=== PATIENT | female | born 1985 | race Caucasian/White ===

== ENCOUNTER → 2021-08-18 11:24 | Outpatient (CLI) | payer OTHER, SELFPAY ==
--- NOTE | 2021-08-18 11:27 | RAD_ITS ---
STUDY: X-RAY - LEFT WRIST REASON FOR EXAM: Female, 35 years old. Ganglion cyst volar aspect of distal radius. TECHNIQUE: 3 view(s) of the wrist were obtained. After identifying is the area of clinical concern near the radial styloid. COMPARISON: None. FINDINGS: Normal visualized distal radius and ulna. Normal radiocarpal articulation. Normal distal radioulnar articulation. Normal carpal bones. Normal carpal articulations. Normal carpometacarpal articulation of the thumb. Normal second through fifth carpometacarpal articulations. Normal visualized metacarpal bones. The soft tissue structures are unremarkable. RAD/Wrist min 3 Views IMPRESSION: No abnormality of the left wrist. Electronically Signed: Taye Thomas MD at 12:34 EDT , Service support ,
== END ==
PROVIDERS: PCP Internal Medicine; Referring Provider Surgery; Visit Provider Surgery
DX: M67.432 Ganglion, left wrist (principal)
CPT/HCPCS: 73110

== ENCOUNTER 2021-10-30 08:14 | Day surgery (SDC) | payer OTHER, SELFPAY ==
--- NOTE | 2021-10-30 02:33 | HP.PCM_ITS ---
History and Physical Date of Admission: 10/30/21 HISTORY OF PRESENT ILLNESS 35 year old woman presents with a ganglion cyst volar radial aspect left wrist that has increased in size over the last several months. She is right hand dominant. She denies fever. She denies recent infection. She denies trauma. She states her PCP tried to drain it with a needle without success. She also states a small incision was made in the office in order to get better visualization for removal of this cyst. At the present time, the soft tissue mass is still present. X-ray left wrist was done on 08/18/21. It showed no bony abnormalities. She presents today for further evaluation and treatment. PAST MEDICAL HISTORY Back problem Ganglion cyst of volar aspect of left wrist Smoker PAST SURGICAL HISTORY Encounter for Essure implantation ALLERGIES No Known Allergies MEDICATIONS No Known/Unobtainable [No Known Home Medications] FAMILY HISTORY Father - Hypertension, High cholesterol Mother - Breast cancer, Diabetes, Hypertension, High cholesterol SOCIAL HISTORY Smoking Status: Current some day smoker alcohol intake: never substance use type: does not use REVIEW OF SYSTEMS General - Denies fever and weight loss. Has fatigue. Eyes - Denies cataracts and glaucoma. ENT - Denies nasal congestion and sore throat. Endocrine - Denies excessive thirst and urination. Skin - Denies suspicious lesions and skin cancer. Has ganglion cyst volar radial aspect left wrist. Musculoskeletal - Denies joint pain, joint stiffness, weakness of muscles and joints, back pain, and arthritis. Neuro - Denies headaches. Cardiovascular - Denies chest pain, shortness of breath with exertion. Has fatigue. Psych - Denies anxiety and depression. Respiratory - Denies chronic cough and shortness of breath. Gastrointestinal - Denies nausea, vomiting, diarrhea, and constipation. Hematologic - Denies abnormal bruising and bleeding. Genitourinary - Denies hematuria and urinary frequency. PHYSICAL EXAMINATION General - Alert and Oriented. HEENT - PERRL. EOMI. Throat is clear. Neck - Supple and nontender. No cervical adenopathy. Lungs - Clear to auscultation. Heart - Regular rate and rhythm. Abdomen - Soft and nondistended. Extremities - FROM. No axillary adenopathy. Radial pulses are palpable. On the left upper extremity involving the volar radial wrist is a soft tissue mass that is clinically consistent with a ganglion cyst. No evidence of infection. Mild swelling present. Neuro - CN II-XII grossly intact. Psych - Normal mood and affect. ASSESSMENT 1. 7 mm ganglion cyst volar radial aspect left wrist. 2. Smoker. PLAN Patient has a soft tissue mass volar radial aspect left wrist that has increased in size over last several months. If it is left alone, it will continue to grow with the possibility of a portion of the ganglion cyst enveloping other s tructures such as the radial artery. Patient states her PCP tried to remove this mass in the office and was unsuccessful. Removing this soft tissue mass requires a trip to the operating room under tourniquet control. It will be under general anesthesia on an outpatient basis. Postoperatively she will wear a plaster wrist splint for 2 weeks. The sutures will be removed in 2 weeks. Tissue that is removed at surgery will be sent to Pathology for analysis to rule out carcinoma. Preoperatively the patient had an x-ray left wrist on 08/18/21. It showed no bony abnormalities. If she develops some stiffness in her fingers, will set her up with OT for range of motion exercises, strengthening, and edema management. She will be encouraged to move her fingers right after surgery to minimize the need to go to OT. Patient was informed of the risks and complications of the procedure including alternatives to surgery. These were discussed with the patient personally. Patient voices understanding and wishes to proceed. Some of the risks and complications were included in a form from the [place]. Encouraged patient to stop smoking as it may have deleterious effects on wound healing. We discussed the current risks associated with COVID-19. While it is understood that there is a community spread of COVID-19, the risk of jp COVID-19 while at [facility] [place] ([facility]) is very low; however, the risk cannot be completely mitigated because of the community spread of the disease. We discussed in detail the risk of exposure to and/or potential harm posed by the COVID-19 virus with having a surgery/procedure at this time versus the risk of delaying the surgery/procedure. It is not possible to know either the risk of delaying the surgery or procedure or chance of getting an infection with perfect accuracy, but a joint decision was made to proceed at this time with the scheduled surgery/procedure as indicated on the consent form. Patient was notified that we will need to comply with any screening or testing [facility] wishes to perform or that surgery may be delayed for any positive results. Procedure Criteria Procedure Type: Elective COVID Risk Discussion: The surgeon/proceduralist and patient have discussed in detail the risk of exposure to and/or potential harm posed by the COVID-19 virus with having a surgery/procedure at this time versus the risk of delaying the surgery/procedure. It is not possible to know either the risk of delaying the surgery or procedure or chance of getting an infection with perfect accuracy, but a joint decision was made between the patient and the surgeon/proceduralist to proceed at this time with the scheduled surgery/procedure as indicated on the consent form.
[2021-10-30] MEDS: Lactated Ringers 1,000 ML 15 ML IV (09:05)
[2021-10-30 09:18] LABS: Internal QC Validated? YES +Cl - CLEAR BKGD; Pregnancy, Urine Negative Negative
[2021-10-30 09:22] VITALS: BP 131/80; PULSE 73; RESP 16; TEMP 36.6; O2SAT 98; BMI 45.9
--- NOTE | 2021-10-30 09:55 | GANG_PTH ---
PATIENT: MARIIA COUGHLIN LOC: [facility] [place] U#:[id number] AGE/SX: 35/F ROOM: RE10/30/[address]: Dr. Les Hopper MD : 1985 BED: DIS: 10/30/2021 SPEC #: [id number] RECD: 10/30/21 14:21 STATUS: JAGUAR JUDY #: [id number] FRANCY: 10/30/21 09:[address]: Les Hopper DEPT: SURGICAL PATHOLOGY RECD BY: Nina Meyers ENTERED: 10/30/21 14:32 SP TYPE: GANGLION OTHR DR: Dr. Rosamaria Estrada DO Tissues: GANGLION CYST Procedures: Surgery Specimen Level III HEADER OPERATION: Excision ganglion cyst volar wrist PRE-OP DIAGNOSIS: 7 mm ganglion cyst volar radial aspect left wrist TISSUE SUBMITTED: 7 mm ganglion cyst volar radial aspect left wrist MICROSCOPIC DIAGNOSIS Soft tissue, volar radial aspect, left wrist, biopsy: Consistent with ganglion cyst. AM:steffany 11/02/2021 MICROSCOPIC DESCRIPTION Slides are reviewed. GROSS DESCRIPTION Received in fixative is one container labeled with the patient's name and designated ganglion cyst volar radial aspect. The specimen consists of multiple irregular fragments of pink-sanchez soft tissue that in aggregate measure 3 x 2.5 x 0.2 cm. The specimen is totally submitted in one cassette. / AM:steffany 10/30/21 TC:1 CPT: 03736
[2021-10-30] MEDS: Lidocaine 1% /Epi 1:100 (20ml) 20 ML Vial (11:56)
--- NOTE | 2021-10-30 13:35 | OP.PCM_ITS ---
Problems Associated Problem List Diagnoses (1) Ganglion cyst of volar aspect of left wrist: (2) Smoker: Report of Operation Date of Procedure: 10/30/21 Pre-Operative Diagnosis: 1. 7 mm ganglion cyst volar radial aspect left wrist. 2. Smoker. Post-Operative Diagnosis: Same. Surgery/Procedure Performed:: Excision 7 mm ganglion cyst volar radial aspect left wrist. Description of Surgical Findings:: 35 year old woman presents with a ganglion cyst volar radial aspect left wrist that has increased in size over the last several months. She is right hand dominant. She denies fever. She denies recent infection. She denies trauma. She states her PCP tried to drain it with a needle without success. She also states a small incision was made in the office in order to get better visualization for removal of this cyst. At the present time, the soft tissue mass is still present. Patient was informed of the risks and complications of the procedure including alternatives to surgery. These were discussed with the patient personally. Patient voices understanding and wishes to proceed. Some of the risks and complications were included in a form from the [place] [employer]. Some of the risks and complications that were discussed included but were not inclusive of failure to diagnose including symptom relief, pain, infection, numbness, stiffness, loss of digit, RSD (CRPS), need for further surgery, contracture, and wound healing problems. Encouraged patient to stop smoking as it may have deleterious effects on wound healing. Total tourniquet time - 57 minutes. Surgeon: Les Hopper server software engineer: None Type of Anesthesia: General Specimen's removed: Ganglion cyst volar radial aspect left wrist to Pathology. Drains: None. Estimated Blood Loss (mL): 10. Description of Procedure: The patient was taken to the operating room. In the supine position, she was placed under general anesthesia and her left upper extremity was prepped and draped in the usual fashion. SCDs were placed for DVT prophylaxis. Perioperative antibiotics were given intravenously. Under loupe magnification, the left upper extremity was elevated. Esmarch bandage was wrapped around the left upper extremity and the tourniquet was elevated to 250 mmHg. I made a longitudinal incision proximal to the ganglion and then proceeded with a curvilinear incision around the ganglion on the radial aspect and zigzag incision into the wrist crease. This was done to provide me with exposure in case I had to extend the incision either proximally, distally or radially. The incision was then infiltrated with Xylocaine with Epinephrine for postoperative pain relief. Once the incisions were made down into the subcutaneous tissue, the ganglion cyst was seen. Some scar tissue seen from previous attempts to remove it in the office along with an attempt at injecting steroids. The palmar cutaneous branch of the median nerve was adjacent to the ganglion cyst on the ulnar aspect that was dissected free. The radial artery was also dissected and preserved and was located on the radial aspect of the ganglion cyst. The artery was not adherent to the ganglion cyst. Dissected the ganglion cyst from its stalk distally down to scaphotrapezial joint. A small cuff of volar capsule was removed. This was done to minimize recurrence. After the ganglion cyst was removed, I pressed on the surrounding tissue to see if there is any other extension to the ganglion cyst and none was seen. When I excised the ganglion cyst, there was some mild inflammation of the flexor carpi radialis tendon which was debrided. After the ganglion cyst was removed, I let the tourniquet down after 57 minutes to make sure there was no arterial bleeders in the area of the radial artery and/or its branches. Mild bleeding was noted, mostly venous, easily controlled with compression gauze. Hemostasis was obtained using electrocautery away from the artery. A small branch coming from the radial artery was controlled with a small surgical clip. I then irrigated the wound with saline. I then was able to close the wound in multiple layers using 4-0 Vicryl interrupted sutures for deep dermis and subcutaneous tissue. The skin was approximated using 5-0 Prolene simple interrupted sutures. Bactroban ointment was applied to the incision followed by Xeroform gauze, 2 x 2 gauze, Kerlix gauze and a volar plaster splint with the wrist in slight extension for postoperative pain relief. Her fingers are free so she can proceed with range of motion exercises of her fingers postoperatively. This was then covered with an Michael wrap. The patient tolerated the procedure well and will be sent to the recovery room in satisfactory condition. She will be sent home on antibiotics and pain medicine. She will follow up in the office in a week for a wound check as well as for discussion of the pathology report. She will have the sutures removed in a couple of weeks. She will keep her right hand elevated during the initial postoperative period. She will be encouraged to proceed with range of motion exercises to minimize stiffness. If she has trouble, then will send her to OT for range of motion exercises, strengthening, and edema management. Grafts/Implants Used: None. Complications None. Admit VTE Documentation VTE Present on Admission: No VTE Mechan Device Prophylaxis: SCD's VTE Pharm Prophylaxis ordered?: No Addendum Addendum: Surgery Charges CPT - 47267 ICD-10 - M67.432, F17.200
--- NOTE | 2021-10-30 13:38 | PCM.DC ---
Discharge Instructions Diet Discharge Diet: No restrictions Activity Discharge Activity: May Not Drive, May Shower (wear plastid bag over right hand when showering.) and - (elevate right hand. no heavy lifting right hand.) May shower in (days): 1 (wear plastic bag over right hand when showering.) May resume sexual activity in: No Restrictions Weight Bearing Status: Weight bearing as tolerated Lifting Restrictions: 20 lbs. Keep extremity elevated above heart level: Right Arm Dressing / Incision Call your doctor if your incision/area has: Continuous Slow Oozing, Sudden Increased Bleeding, Increased Pain/ Swelling, Increased Redness, Foul Smelling Discharge and Swelling at the incision site Call your doctor if you observe: Fever of 101 or Higher, Coldness, Increased Pain, Shortness of breath, Chest pain, Calf discomfort and Uncontrolled pain Suture Line Care: - (after operative dressing removed in the office, apply antibiotic ointment to suture line daily followed by splint and mei wrap.) Remove Dressing in: do not remove dressing (will change operative dressing in the office.) Cleanse incision/area with: - (wear plastic bag over right hand when showering.) Additional Dressing/Incision Instructions:: splint to be worn for 2 weeks. encourage range of motion exercises to minimize stiffness. Follow Up Care Please Follow Up With: Les Hopper MD When: one week. call [phone] for appt. Test Results: Test results from this visit will be discussed in further detail at your follow-up appointment, if applicable. Discharge Plan Admission Primary Reason for Your Visit: ganglion cyst volar radial right wrist Attending Provider: Les Hopper Primary Care Provider: Rosamaria Estrada Discharge Orders/Prescriptions Prescriptions: New cefadroxil 500 mg capsule 500 mg PO BID Qty: 10 RF: 0 oxycodone-acetaminophen [Percocet] 5-325 mg tablet 1 tab PO Q4H PRN (Reason: pain (scale score 7-10)) 7 Days Qty: 40 RF: 0 Continued multivitamin Tablet 1 tab PO DAILY RF: 0 Referrals / Follow Up: Rosamaria Estrada DO [Primary Care Provider] - Disposition Disposition (needs filled in before D/C Order can be placed): Home, Self Care
[2021-10-30 13:39] VITALS: BP 131/80; PULSE 92; RESP 16; TEMP 36.3; O2SAT 98
[2021-10-30 13:45] VITALS: BP 126/73; BP 131/80; PULSE 91; RESP 16; O2SAT 97
[2021-10-30 14:00] VITALS: BP 130/82; BP 131/80; PULSE 94; RESP 16; O2SAT 99
[2021-10-30 14:01] VITALS: BP 126/72; BP 131/80; PULSE 89; RESP 16; TEMP 36.2
[2021-10-30 14:15] VITALS: BP 124/80; BP 131/80; PULSE 72; RESP 14; TEMP 36.6; O2SAT 98
== END 2021-10-30 14:57 | disposition home or self-care (01) ==
LOC: SDC 08:15 → AC 08:41
PROVIDERS: Anesthesiology; PCP Internal Medicine; Referring Provider Surgery; Visit Provider Surgery
PROC: (CPT 25111; principal; 2021-10-30 09:40)
DX: M67.432 Ganglion, left wrist (principal); F17.200 Nicotine dependence, unspecified, uncomplicated; E78.00 Pure hypercholesterolemia, unspecified
CPT/HCPCS: 25111; 81025; 87426; 88304; C9803; J7120; J2405

== ENCOUNTER → 2023-11-28 | Outpatient (CLI) | payer OTHER, SELFPAY ==
--- NOTE | 2023-11-28 07:58 | BI_ITS ---
MAMMOGRAPHY - BILATERAL SCREENING REASON FOR EXAM: Female, 38 years old. Routine annual screening examination. PERTINENT HISTORY: Non-contributory. TECHNIQUE: Digital bilateral breast vik (3D mammographic acquisition) in the CC and MLO projections. 2-D mediolateral oblique (MLO) and craniocaudad (CC) views of both breasts were obtained. CAD: Full Field Digital Mammography with Computer Added Detection was performed. COMPARISON: None. Baseline examination. FINDINGS: Breast Composition: The breasts are heterogeneously dense, which may obscure small masses. There are no dominant masses or suspicious calcifications. There is a 7.8 mm x 8.5 mm nodular density in the axillary region of the left breast. Correlation with ultrasound is recommended for further evaluation. No other significant abnormalities are identified. BI/SCRN MAMM (CAD)W/VIK BILAT IMPRESSION: 7.8 mm x 8.5 mm nodular density in the axillary region of the left breast. Correlation with ultrasound is recommended. ASSESSMENT CATEGORY: BIRADS Category 0: Incomplete. Need additional imaging evaluation. A letter regarding these results will be sent to the patient by the facility within 30 days. Approximately 10% of breast cancers are not detected by mammography. A normal mammogram should not delay biopsy of a clinically suspicious abnormality. [id number] Electronically Signed: Rudi Varghese MD at 9:02 EST ,
--- OUTSIDE RECORDS SUMMARY | 2023-11-28 08:11 | XMS RPT_ITS | CCD ---
Author Name Unknown Address [id number] [place] [address] Organization [facility] Care Team Providers Care Swimming Professor Name Role Phone Marli Platt E Unavailable Rachel Cedeño Unavailable Unavailable Vessel Captain, System Unavailable Unavailable Lacy Hatch Unavailable Unavailable Unavailable Unavailable Angel Bettencourt Unavailable Unavailable Katelin Jain Unavailable Unavailable Angel Costello Unavailable Unavailable Marli Platt CNP Unavailable Angel Costello LPN Unavailable Unavailable Jennifer Funk LPN Unavailable Unavailable Katelin Jain Unavailable Unavailable Unavailable Unavailable Sean DORosamaria Unavailable Nini Kulkarni CMA Unavailable Unavailable Les Hopper Unavailable Giulia Marli Unavailable Unavailable Giulia Marli Unavailable Serenity Skinner LPN Unavailable Unavailable Jesus Valera CNP Unavailable Maxwell Salomon Unavailable Unavailable Primary Care Provider UnavailCiro Valadez MA Unavailable Unavailable Yanea Marli Attending Unavailable Giulia Marli Consulting Unavailable LYNNE TALAVERA Referring Unavailable Jesus Valera Primary Care Provider Jesus Valera CNP Unavailable LYNNE TALAVERA Referring Unavailable RADHAMES LOVE Attending Unavailable SERENITY KUMAR Referring Unavailable LYNNE TALAVERA Referring Unavailable LYNNE TALAVERA Referring Unavailable SERENITY KUMAR Attending Unavailable JESUS VALERA Referring Unavailable JESUS VALERA Primary Care Unavailable MUKUND MORGAN Referring Unavailable VICTOR HUGO, JESUS Primary Care Unavailable DOWNING, HIEN Attending Unavailable VICTOR HUGO, JESUS Primary Care Unavailable GROMORAMIREZ, SERENITY R Attending Unavailable VICTOR HUGO, JESUS Referring Unavailable VICTOR HUGO, JESUS Primary Care Unavailable DOWNING, HIEN Attending Unavailable DOWNING, HIEN Attending Unavailable HARRISON GRAVES Attending Unavailable GROMOVSKY, SERENITY R Referring Unavailable DOWNING, HIEN Attending Unavailable GROMOVSKY, SERENITY R Attending Unavailable GROMOVSKY, SERENITY R Attending Unavailable ANABELLA, CIRO Attending Unavailable GROMOVSKY, SERENITY R Attending Unavailable DOWNING, HIEN Attending Unavailable DOWNING, HIEN Attending Unavailable ILAN, LYNNE Attending Unavailable ILAN, LYNNE Admitting Unavailable ILAN, LYNNE Attending Unavailable ILAN, LYNNE Referring Unavailable VICTOR HUGO, JESUS Primary Care Unavailable ANABELLA, CIRO Attending Unavailable GROMOVSKY, SERENITY R Attending Unavailable VICTOR HUGO, JESUS Primary Care Unavailable ILAN, LYNNE Referring Unavailable VICTOR HUGO, JESUS Primary Care Unavailable MUKUND MORGAN Attending Unavailable VICTOR HUGO, JESUS Primary Care Unavailable ILAN, LYNNE Attending Unavailable HILARIOHTCAMILA VIGIL Attending Unavailable VICTOR HUGO, JESUS Primary Care Unavailable CAMILA SAUL Attending Unavailable Victor Hugo JORGE LUIS Jesus Primary Care Provider Medications Current Medications Medication Drug Class(es) Dates Sig (Normalized) Sig (Original) acetaminophen 500 mg oral tablet (2 sources) Start: 04-13-2023 End: 04-20-2023 take 45-49.9 tablets by mouth every six hours acetaminophen (TYLENOL) 500 mg tablet Indications: Class 3 severe obesity with serious comorbidity and body mass index (BMI) of 45.0 to 49.9 in adult, unspecified obesity type (HCC) Take 2 tablets by mouth every 6 hours for 7 days. TO START AFTER SURGERY 56 tablet 0 04/13/2023 04/20/2023 Active Completed/Discontinued Medications Medication Drug Class(es) Dates Sig (Normalized) Sig (Original) acetaminophen 500 mg / HYDROcodone bitartrate 5 mg oral tablet (20 sources) Opioid Agonist Start: 10-31-2008 End: 01-17-2019 take 1-2 tablets by mouth every four hours as needed HYDROCODONE-ACETAMI NOPHEN, 5-500MG (Oral Tablet) 1-2 Tablet Tablet Q 4hr/PRN for 0 days Quantity: 60 {Tablet} Refills: 0 Ordered: 31-Oct-2008 DavidsonRachel segundo Start : 31-Oct-2008 End : 17-Jan-2019 Discontinued Comments: This order discontinued per [facility]. Problems Active Problems Problem Classification Problem Date Documented Date Episodic/Chronic Chronic obstructive pulmonary disease and bronchiectasis (20 sources) Bronchitis; Translations: [Bronchitis] Resolved: 05-14-2019 08-19-2015 Episodic Chronic obstructive pulmonary disease and bronchiectasis (20 sources) Chronic obstructive pulmonary disease and bronchiectasis Diseases of mouth; excluding dental (20 sources) Oral aphthae; Translations: [APHTHOUS ULCER] Resolved: 05-14-2019 05-14-2019 Episodic Past or Other Problems Problem Classification Problem Date Documented Date Episodic/Chronic Administrative/social admission (15 sources) Medical examinations/reports status; Translations: [Patient encounter status] Onset: 02-22-2023 Resolved: 04-09-2009 09-30-2015 Episodic Biliary tract disease (3 sources) Cholelithiasis without obstruction; Translations: [Calculus of gallbladder without cholecystitis without obstruction] Onset: 02-22-2023 Episodic Diabetes mellitus without complication (16 sources) Diabetes mellitus without complication Other upper respiratory disease (20 sources) Allergic rhinitis; Translations: [Allergic rhinitis] Resolved: 04-09-2009 01-17-2019 Chronic Unclassified (20 sources) APHTHOUS ULCER (528.2) 09-18-2014 Results Test Name Value Interpretation Reference Range Facil ity Vital Signs Date Time Vital Sign Value Performing Clinician Facility 05-04-2023 09:31-0400 Body height 170.2 cm Serenity Kumar APRN.CNP Work Phone: [facility] 05-04-2023 09:31-0400 Body weight 122.47 kg Serenity Kumar APRN.CNP Work Phone: [facility] 05-04-2023 09:31-0400 Diastolic blood pressure 58 mm[Hg] Serenity Kumar APRN.CNP Work Phone: [facility] 05-04-2023 09:31-0400 Heart rate 80 /min Serenity Kumar APRN.CNP Work Phone: [facility] 05-04-2023 09:31-0400 Systolic blood pressure 105 mm[Hg] Serenity Kumar APRN.CNP Work Phone: [facility] 05-03-2023 08:39-0400 Body height 170.[address] Work Phone: [facility] 05-03-2023 08:39-0400 Body weight 122.[address] Work Phone: [facility] 04-21-2023 10:16-0400 Body height 167.6 cm [address] 2 [facility] 04-21-2023 10:16-0400 Body temperature 98.4 [degF] Pst 2 [facility] 04-21-2023 10:16-0400 Body weight 129.28 kg Pst 2 [facility] 04-21-2023 10:16-0400 Diastolic blood pressure 79 mm[Hg] Pst 2 [facility] 04-21-2023 10:16-0400 Heart rate 79 /min Pst 2 [facility] 04-21-2023 10:16-0400 Respiratory rate 16 /min [facility] 2 [facility] 04-21-2023 10:16-0400 SaO2% (BldA) [Mass fraction] 96 % Pst 2 [facility] 04-21-2023 10:16-0400 Systolic blood pressure 117 mm[Hg] Pst 2 [facility] 04-20-2023 09:31-0400 Body height 167.64 cm Serenity Skinner LPN [facility] Work Phone: 04-20-2023 09:31-0400 Body mass index (BMI) [Ratio] 46.02 kg/m2 Serenity Skinner LPN [facility] Work Phone: 04-20-2023 09:31-0400 Body surface area Derived from formula 2.33 m2 Serenity Skinner LPN [facility] Work Phone: 04-20-2023 09:31-0400 Body temperature 98.1 [degF] Serenity Skinner LPN [facility] Work Phone: Encounters Encounter Date Encounter Type Care Provider Facility Start: 10-01-2023 [facility] Procedures Date Procedure Procedure Detail Performing Clinician Start: 06-07-2023 Follow-up visit Follow Up HIEN HERNANDEZ Start: 04-21-2023 Antibody screen SERENITY KUMAR Plan of Treatment Date Care Activity Detail Author Start: 05-04-2024 BP CONTROLLED (<130/80) BP CONTROLLED (<130/80) [facility] Start: 04-21-2024 BP CONTROLLED (<130/80) BP CONTROLLED (<130/80) [facility] Start: 11-10-2023 BP CONTROLLED (<130/80) BP CONTROLLED (<130/80) [facility] Start: 07-15-2023 Influenza vaccination [facility] Start: 06-03-2023 End: 08-03-2023 25-hydroxyvitamin D3 [Mass/volume] in Serum or Plasma VITAMIN D 25 HYDROXY Lab Routine S/P laparoscopic sleeve gastrectomy Expected: 06/03/2023, Expires: 08/03/2023 [facility] Work Phone: Immunizations Immunization Date Immunization Notes Care Provider Heber lerner 02-09-2007 human papilloma viru s vaccine, quadrivalent Marli Gonzalezfavianjudie [facility] Work Phone: Payers Date Payer Category Payer Private Health Insurance [id number] 2021 Private Health Insurance [id number] 2018 Private Health Insurance [id number] 2011 Medicaid [id number] 2011 Medicaid [employer] [id number] 2011-Present [phone] [address] [place] [address] Medicaid [id number] 1983 Unknown [id number] Unknown Unknown [id number] Social History Date Type Detail Facility Start: 11-10-2022 End: 03-23-2023 Alcohol Use Former smoker [facility] Work Phone: Goals Date Patient Goal Desired Activity /State Personal health goal Personal health goal Clinical Notes 10-13-2022 to 06-07-2023 Serenity Kumar APRN.JORGE LUIS - 05/04/2023 9:[address] - 05/03/2023 9:25 AM EDTTelephone Encounter - Mukund Morgan APRN.CNP - 04/29/2023 1:10 PM EDTPatient Instructions Note Date & Type Note Facility 06-07-2023 Note HNO ID: [id number] Author: Serenity Kumar APRN.JORGE LUIS Service: ? Author Type: Nurse Practitioner Type: Progress Notes Filed: 06/07/2023 8:40 AM Note Text: BARIATRIC SURGERY CLINIC FOLLOW UP NOTE DISTANCE HEALTH VISIT This Team Access Model visit is a virtual encounter. It required patient-provider interaction for the medical decision making as documented below. Consent was obtained to complete today's distance health visit. I have communicated my name and active licensure. The patient's identity and physical location were verified at the time of this visit. Either the patient or their legal veterans employment representative has been informed of the risks and benefits of -- and alternatives to -- treatment through a remote evaluation and consents to proceed with the evaluation remotely. Name: Mariia Coughlin Index Surgery Date of Surgery: 04/26/2023 Surgeon: Dr. Talavera Surgical Procedure: Sleeve gastrectomy Pre-surgical weight: 126.6 kg (279 lb) Override Index Surgery Information? No Other Bariatric Surgeries None Visit: 6 weeks Today's Visit: Wt 114.8 kg (253 lb) BMI 39.63 kg/m2 BMI 39.63 kg/(m2) Last Visit: Wt: 122.5 kg (270 lb) BMI: 42.29 kg/(m2) Total weight loss: 11.8 kg (26 lb) [place] weight: 72.4 kg (159 lb 10.2 oz) Excess weight: 54.1 kg (119 lb 5.8 oz) % of excess body weight lost: 11.8 kg (26 lb) (21.78% of excess weight loss) COMPLICATIONS SINCE LAST VISIT?: NONE DIET INTAKE: Phase III She is meeting fluid and protein goals consistently. Denies nausea, vomiting, abdominal pain, diarrhea, constipation, acid reflux symptoms, dysphagia-like symptoms. She is taking vitamins and medications as directed. She is exercising for 15 to 30 minutes/day, doing cardiovascular exercise. DAILY SUPPLEMENTS: See RD note Other: N/A EXERCISE: 15-30 min 7 days per week Are you attending any Support Groups? No attendance HISTORY REVIEWED (electronic chart updated): - medical history - medications - allergies Current Outpatient Medications Medication Sig Vitamin A 2,400 mcg capsule Take 8,000 Units by mouth once daily. cyanocobalamin (VITAMIN B-12) 1,000 mcg tab Take 1,000 mcg by mouth once daily. B-complex with vitamin C (SUPER B COMPLEX + C ORAL) Take by mouth once daily. ferrous sulfate (IRON ORAL) Take 18 mg by mouth once daily. Gummies(only ones patients pharmacy had) biotin 5 mg tab Take 5 mg by mouth once daily. pantoprazole DR (PROTONIX) 40 mg tablet Take 1 tablet by mouth once daily. TO START AFTER SURGERY. Multivitamin capsule Take 1 capsule by mouth once daily. rosuvastatin (CRESTOR) 5 mg tablet Take 5 mg by mouth once daily. No current facility-administered medications for this visit. REVIEW OF SYSTEMS: Denies nausea, vomiting, dumping syndrome, reactive hypoglycemia, gustatory rhinorrhea, Denies abdominal pain, constipation, diarrhea, melena, hematochezia, Denies paresthesias, gait abnormality, fatigue, weakness, lower extremity edema PHYSICAL EXAM: Ht 170.2 cm (5' 7 ) Wt 114.8 kg (253 lb) LMP 03/31/2023 (Approximate) BMI 39.63 kg/m? GENERAL APPEARANCE: Pleasant, interacts appropriately and in no apparent distress Appropriately groomed, happy, smiling, and interactive. ENT: Oral mucosa pink without lesions/ulcerations; LUNGS: unlabored on room air negative findings: normal respiratory rate and rhythm, no cough ABDOMEN: Obese SKIN: Skin of normal texture, temperature without rashes/lesions/ulcerations. NEURO/PSYCH: Oriented to person, place, time; appropriate insight and judgement. Appropriate affect. ASSESSMENT AND PLAN: Normal post-OP course DISPOSITION: Return 1 month to EST/Standard office visit EDUCATION: Encouraged to continue with healthy lifestyle changes and incorporate cardiovascular and resistance training, Discussed weight loss expectations after bariatric and metabolic surgery, Advised PT to avoid NSAIDs, smoking tobacco given increased risk of marginal ulcers, or Discussed importance of protein intake as per the RDN note REFERRALS: N/A LABS: Today: See Epic Orders ASSESSMENT/PLAN: 1. S/P laparoscopic sleeve gastrectomy - ICD9: V45.86, ICD10: Z98.84 (primary diagnosis) - She is at 21.7% EWL, which is within the predicted range. She is meeting nutritional goals and following healthy diet. She is exercising regularly-but we did discuss the importance of increasing this to a higher intensity. - Continue PPI - Due for labs, orders placed 2. Hypertension, unspecified type - ICD9: 401.9, ICD10: I10 - no longer taking medication, BP well controlled Serenity Kumar, TRAVELING REPRESENTATIVE.[facility] Total time in direct patient contact = 8 min. Greater than 50% of the time was spent in counseling and/or coordination of care. [facility] 06-07-2023 Note HNO ID: [id number] Author: Hien Marinelli RD Service: ? Author Type: Registered Dietitian Type: Progress Notes Filed: 06/07/2023 8:35 AM Note Text: 6 Week Post-Op--Visit conducted via [employer] (audio and visual) d/t COVID 19 SG 04/26/23 Mariia MarreroLeroy Lanny 37 year old female Ht 170.2 cm (5' 7 ) Wt 115 kg (253 lb 9.6 oz) LMP 03/31/2023 (Approximate) BMI 39.72 kg/m? 18# lost since surgery 16%EWL based on IBW w/ BMI 25 Final pre-surg wt: 271 lbs Tolerating by mouth well: Yes Nausea: No Vomiting: No Constipation: No Diarrhea:No Weak/Shaky/Light-headed: No Diet advancement/meal pattern reviewed: Yes-phase 4 Food/beverage intolerance: none noted Average protein intake: 60-70 g/day Average fluid intake: 60 oz/day 24 hour diet recall Breakfast: protein shake (30 g) Lunch: oikos gambian yogurt (15 g) Dinner: chicken enchilada---2 oz Snacks: protein shake (30 g) Fluids (liquid intake-oz): yesterday: 60+ oz Alcohol/Caffeine/Sugar/Sweetener/C arbonation Beverages in Diet: none Protein (grams/day): yesterday: 90 g Exercise: walking at least 30 minutes daily. Vitamins--per manual: MVI: womens one a day (2/day) B12: 1,000 mcg daily Calcium Citrate: caltrate 600 mg BID---take with food. Iron: 18 mg/day (gummy)--switch to tablet or liquid Thiamin: needs 12 mg/day Zinc: reviewed need of 15mg/day Vitamin A: 8,000 international unit(s) daily--decrease to every other day Vitamin D: reviewed need of 3,000IU/day Written information provided and reviewed: as noted Reinforced behaviors: as noted 6 week post op SG presents with 16% EBWL. Denies any significant issues with meeting protein or fluid goal. Advised to slowly increase intake of protein through whole foods instead of protein shakes. She denies any issues with tolerating protein rich foods. Regarding exercise, she is walking daily-counseled pt on importance of increasing intensity to break a sweat to aid weight loss. Verbalized understanding. Regarding vitamins, she will need to make adjustments as noted above. Revised phase 4 diet with pt, all questions answered. Goals eat 3 meals daily - protein source at each meal endorse in formal exercise 5-7 days per week for 30 min (per sesion) or 150 min of activity/week journal daily and bring to all appointments start phase 4 diet update vitamins per protocol Plan: follow up at 3 months post op Total time in direct patient contact = 17 min. Greater than 50% of the time was spent in counseling and/or coordination of care. Hien Marinelli RD This note was generated using voice recognition technology and may contain grammatical errors. [facility] 05-04-2023 Note HNO ID: [id number] Author: Serenity Kumar APRN.[facility] Service: ? Author Type: Nurse Practitioner Type: Progress Notes Filed: 05/04/2023 9:48 AM Note Text: BARIATRIC SURGERY CLINIC FOLLOW UP NOTE Name: Mariia Coughlin Index Surgery Date of Surgery: 2022 Surgeon: Dr. Talavera Surgical Procedure: Sleeve gastrectomy Pre-surgical weight: 279 lb Other Bariatric Surgeries None Visit: Other 1 week Today's Visit: BP 105/58 (BP Site: Left Arm, BP Position: Sitting, BP Cuff Size: Large Adult) Pulse 80 Ht 170.2 cm (5' 7 ) Wt 122.5 kg (270 lb) LMP 03/31/2023 (Approximate) BMI 42.29 kg/m? Last Visit: Wt: 122.9 kg (271 lb) BMI: 42.44 kg/(m2) Total weight loss: 9 lb [place] weight: 72.4 kg (159 lb 10.2 oz) Excess weight: 120 lb % of excess body weight lost: 7% COMPLICATIONS SINCE LAST VISIT?: NONE Fever/Chills: Denies Abdominal Pain: Denies Back Pain: Denies Increased Heart Rate: Denies - HR 80 bpm in office today Bloating/Hiccups: Denies Shortness of Breath: Denies Cough/Wheezing: Denies Calf/Thigh pain or swelling: Denies Decreased Urine Output: Denies Nausea/Vomiting: Denies Diarrhea: Denies Bowel function: soft formed stool Reflux/Regurgitation: Denies DIET INTAKE: phase II - tolerating Average 24 hour fluid intake: 64 oz Average 24 hour protein intake: 60 g DAILY SUPPLEMENTS: See RD note Other: N/A EXERCISE: Can begin cardiovascular exercise program. No lifting > 10# for 6 weeks. WORK: return to work 3 weeks Are you attending any Support Groups? No attendance HISTORY REVIEWED (electronic chart updated): - medical history - medications - allergies Current Outpatient Medications Medication Sig traMADol (ULTRAM) 50 mg tablet Take 1 tablet by mouth every 6 hours as needed. ondansetron (ZOFRAN) 4 mg tablet Take 1 tablet by mouth every 8 hours as needed for nausea/vomiting. biotin 5 mg tab Take 5 mg by mouth once daily. pantoprazole DR (PROTONIX) 40 mg tablet Take 1 tablet by mouth once daily. TO START AFTER SURGERY. Multivitamin capsule Take 1 capsule by mouth once daily. rosuvastatin (CRESTOR) 5 mg tablet Take 5 mg by mouth once daily. No current facility-administered medications for this visit. REVIEW OF SYSTEMS: Review of Systems Constitutional: Negative for chills and fever. Eyes: Negative for blurred vision. Respiratory: Negative for shortness of breath. Cardiovascular: Negative for chest pain, palpitations and leg swelling. Gastrointestinal: Negative for abdominal pain, blood in stool, constipation, diarrhea, heartburn, melena, nausea and vomiting. Genitourinary: Negative for dysuria. Skin: Negative for rash. Neurological: Negative for dizziness and weakness. Psychiatric/Behavioral: Negative. PHYSICAL EXAM: BP 105/58 (BP Site: Left Arm, BP Position: Sitting, BP Cuff Size: Large Adult) Pulse 80 Ht 170.2 cm (5' 7 ) Wt 122.5 kg (270 lb) LMP 03/31/2023 (Approximate) BMI 42.29 kg/m? Physical Exam Constitutional: General: She is not in acute distress. Appearance: Normal appearance. She is obese. She is not ill-appearing. HENT: Mouth/Throat: Mouth: Mucous membranes are moist. Cardiovascular: Rate and Rhythm: Normal rate. Pulmonary: Effort: Pulmonary effort is normal. No respiratory distress. Abdominal: General: Abdomen is flat. There is no distension. Palpations: Abdomen is soft. There is no mass. Tenderness: There is no abdominal tenderness. Hernia: No hernia is present. Musculoskeletal: General: No swelling. Normal range of motion. Cervical back: Normal range of motion. Skin: General: Skin is warm and dry. Coloration: Skin is not jaundiced. Comments: Surgical incisions are c/d/I - surgical glue and steri strips remain in place No drainage, induration, erythema. Incisions are well approximated Bruising surrounding incisions, healing Neurological: General: No focal deficit present. Mental Status: She is alert and oriented to person, place, and time. Mental status is at baseline. Psychiatric: Mood and Affect: Mood normal. Behavior: Behavior normal. Thought Content: Thought content normal. Judgment: Judgment normal. ASSESSMENT AND PLAN: Normal post-OP course DISPOSITION: Return 1 month to EST/Standard office visit EDUCATION: Encouraged to continue with healthy lifestyle changes and incorporate cardiovascular and resistance training, Discussed weight loss expectations after bariatric and metabolic surgery, Advised PT to avoid NSAIDs, smoking tobacco given increased risk of marginal ulcers, or Discussed importance of protein intake as per the RDN note REFERRALS: N/A LABS: Today: NA 6 weeks: See Epic Orders ASSESSMENT/PLAN: 1. S/P laparoscopic sleeve gastrectomy - ICD9: V45.86, ICD10: Z98.84 (primary diagnosis) - She is doing very well. She is meeting fluid and protein goals without difficulty. Pain is well controlled. She has (more content not included)... [facility] 05-04-2023 History of Present illness Narrative BARIATRIC SURGERY CLINIC FOLLOW UP NOTE Name: Mariia Coughlin Index Surgery Date of Surgery: 2022 Surgeon: Dr. Talavera Surgical Procedure: Sleeve gastrectomy Pre-surgical weight: 279 lb Other Bariatric Surgeries None Visit: Other 1 week Today's Visit: BP 105/58 (BP Site: Left Arm, BP Position: Sitting, BP Cuff Size: Large Adult) Pulse 80 Ht 170.2 cm (5' 7 ) Wt 122.5 kg (270 lb) LMP 03/31/2023 (Approximate) BMI 42.29 kg/m Last Visit: Wt: 122.9 kg (271 lb) BMI: 42.44 kg/(m^2) Total weight loss: 9 lb [place] weight: 72.4 kg (159 lb 10.2 oz) Excess weight: 120 lb % of excess body weight lost: 7% COMPLICATIONS SINCE LAST VISIT?: NONE Fever/Chills: Denies Abdominal Pain: Denies Back Pain: Denies Increased Heart Rate: Denies - HR 80 bpm in office today Bloating/Hiccups: Denies Shortness of Breath: Denies Cough/Wheezing: Denies Calf/Thigh pain or swelling: Denies Decreased Urine Output: Denies Nausea/Vomiting: Denies Diarrhea: Denies Bowel function: soft formed stool Reflux/Regurgitation: Denies DIET INTAKE: phase II - tolerating Average 24 hour fluid intake: 64 oz Average 24 hour protein intake: 60 g DAILY SUPPLEMENTS: See RD note Other: N/A EXERCISE: Can begin cardiovascular exercise program. No lifting > 10# for 6 weeks. WORK: return to work 3 weeks Are you attending any Support Groups? No attendance HISTORY REVIEWED (electronic chart updated): - medical history - medications - allergies Current Outpatient Medications Medication Sig traMADol (ULTRAM) 50 mg tablet Take 1 tablet by mouth every 6 hours as needed. ondansetron (ZOFRAN) 4 mg tablet Take 1 tablet by mouth every 8 hours as needed for nausea/vomiting. biotin 5 mg tab Take 5 mg by mouth once daily. pantoprazole (PROTONIX) 40 mg tablet Take 1 tablet by mouth once daily. TO START AFTER SURGERY. Multivitamin capsule Take 1 capsule by mouth once daily. rosuvastatin (CRESTOR) 5 mg tablet Take 5 mg by mouth once daily. No current facility-administered medications for this visit. REVIEW OF SYSTEMS: Review of Systems Constitutional: Negative for chills and fever. Eyes: Negative for blurred vision. Respiratory: Negative for shortness of breath. Cardiovascular: Negative for chest pain, palpitations and leg swelling. Gastrointestinal: Negative for abdominal pain, blood in stool, constipation, diarrhea, heartburn, melena, nausea and vomiting. Genitourinary: Negative for dysuria. Skin: Negative for rash. Neurological: Negative for dizziness and weakness. Psychiatric/Behavioral: Negative. PHYSICAL EXAM: BP 105/58 (BP Site: Left Arm, BP Position: Sitting, BP Cuff Size: Large Adult) Pulse 80 Ht 170.2 cm (5' 7 ) Wt 122.5 kg (270 lb) LMP 03/31/2023 (Approximate) BMI 42.29 kg/m Physical Exam Constitutional: General: She is not in acute distress. Appearance: Normal appearance. She is obese. She is not ill-appearing. HENT: Mouth/Throat: Mouth: Mucous membranes are moist. Cardiovascular: Rate and Rhythm: Normal rate. Pulmonary: Effort: Pulmonary effort is normal. No respiratory distress. Abdominal: General: Abdomen is flat. There is no distension. Palpations: Abdomen is soft. There is no mass. Tenderness: There is no abdominal tenderness. Hernia: No hernia is present. Musculoskeletal: General: No swelling. Normal range of motion. Cervical back: Normal range of motion. Skin: General: Skin is warm and dry. Coloration: Skin is not jaundiced. Comments: Surgical incisions are c/d/I - surgical glue and steri strips remain in place No drainage, induration, erythema. Incisions are well approximated Bruising surrounding incisions, healing Neurological: General: No focal deficit present. Mental Status: She is alert and oriented to person, place, and time. Mental status is at baseline. Psychiatric: Mood and Affect: Mood normal. Behavior: Behavior normal. Thought Content: Thought content normal. Judgment: Judgment normal. ASSESSMENT AND PLAN: Normal post-OP course DISPOSITION: Return 1 month to EST/Standard office visit EDUCATION: Encouraged to continue with healthy lifestyle changes and incorporate cardiovascular and resistance training, Discussed weight loss expectations after bariatric and metabolic surgery, Advised PT to avoid NSAIDs, smoking tobacco given increased risk of marginal ulcers, or Discussed importance of protein intake as per the RDN note REFERRALS: N/A LABS: Today: NA 6 weeks: See Epic Orders ASSESSMENT/PLAN: 1. S/P laparoscopic sleeve gastrectomy - ICD9: V45.86, ICD10: Z98.84 (primary diagnosis) - She is doing very well. She is meeting fluid and protein goals without difficulty. Pain is well controlled. She has been doing light cardio exercise - has not been taking PPI- educated her on beginning this once per day for the first 6 months post-op - future lab orders placed - BASIC METABOLIC PNL - CBC - FERRITIN BLD - FOLATE SERUM - IRON + TIBC - PTH INTACT BLD - VITAMIN A/RETINOL - VITAMIN B1 (THIAMINE), WHOLE BLOOD - VITAMIN B12 BLOOD - VITAMIN D 25 HYDROXY - ZINC BLD 2. Hypertension, unspecified type - ICD9: 401.9, ICD10: I10 - holding anti-hypotensives per PCP - follow up with PCP as warranted Serenity Kumar APRN.CNP Total time in direct patient contact = 15 min. Greater than 50% of the time was spent in counseling and/or coordination of care. documented in this encounter [facility] 05-03-2023 Note Education (AGGENS4) MARIIA COUGHLIN ([id number]) 1985 F Date Time Provider Department 05/03/23 9:30 AM CAMILA SAUL Reason for Visit: Post Op Follow Up [3947] Primary Visit Diagnosis:Dietary counseling and surveillance [Z71.3] During your visit today, we recorded the following information about you: Weight Height 122.9 kg 1.702 m Allergies As of Date: 05/03/2023 (No Known Allergies) Date Reviewed: 04/27/2023 Reviewed by: Amelia Walker RN - Fully Assessed Prescriptions as of 05/03/2023 - traMADol (ULTRAM) 50 mg tablet Take 1 tablet by mouth every 6 hours as needed. - ondansetron (ZOFRAN) 4 mg tablet Take 1 tablet by mouth every 8 hours as needed for nausea/vomiting. - biotin 5 mg tab Take 5 mg by mouth once daily. - pantoprazole DR (PROTONIX) 40 mg tablet Take 1 tablet by mouth once daily. TO START AFTER SURGERY. - Multivitamin capsule Take 1 capsule by mouth once daily. - rosuvastatin (CRESTOR) 5 mg tablet Take 5 mg by mouth once daily. Follow-up and Disposition History for Encounter Date Provider Department Center 05/03/2023 [id number], LINDSEY AGGENS4 [facility] Encounter Status:Closed by CAMILA SAUL on 05/03/23 [facility] 05-03-2023 Note HNO ID: [id number] Author: Camila Saul RD Service: ? Author Type: Registered Dietitian Type: Progress Notes Filed: 05/03/2023 10:01 AM Note Text: 1 Week Post-Op This patient encounter was completed virtually due to COVID-19 (audio/visual) using a secure, HIPPA compliant video chat software program with the patient's consent. Mariia Coughlin Surgery Date: 04/26/23 Dr. Ilan BLANCO CBW: 271 lbs Compliance with Full Liquid Diet: Yes Tolerating by mouth well: Yes Nausea: No Vomiting: No Constipation: No Diarrhea:No Drinking Slowly: Yes Completed food record: Yes Journal brought to appointment: Yes Equate 30g (BID) + water (50 oz) 60g average protein intake (g) 50-60oz average liquid intake (oz) Food/beverage intolerance: none Exercise: able to walk at least 30 min daily VRT MV: womens one a day - need 2 daily Calcium citrate: caltrate - 600mg BID *did advise to switch to calcium citrate supplement instead of calcium carbonate Vit A: 1400mcg within MV -- may benefit from supplement (another 1500mcg/ 5000iu) Vit D: 2000 international unit(s) +1600 international unit(s) from calcium Thiamin: 4.8mg -- reviewed need of 12mg daily B12: 19.2 mcg within MV -- needs 500-1000mcg daily Iron: 36mg within MV - needs 45mg daily Zinc: 16mg within MV Copper: 2.7mg within Mv *will send detailed MC message with supplemental information Written information provided and reviewed: soft diet journal vitamin schedule Reinforced Behaviors: increase exercise: as directed and tolerated vitamin schedule increase liquid intake Patient presents 1 week s/p LSG, doing very well. Able to meet protein fluid goals. Patient reports that she is able to walk around at least 30 minutes daily. Postop vitamins reviewed, will need to add in supplements since her multivitamin does not cover all postop goals. Reviewed phase III recommendations/guidelines with patient via bariatric manual, will advance at 05/10 . Plan: follow up with RD 6 weeks post op Goals advance to phase III at 2 weeks to 8 weeks post op eat 3 meals daily - protein source at each meal endorse in formal exercise 5-7 days per week for 30 min (per sesion) or 150 min of activity/week journal daily and bring to all appointments Total time in direct patient contact = 15 min. Greater than 50% of the time was spent in counseling and/or coordination of care. Camila Saul RD This note was generated using voice recognition technology and may contain grammatical errors. [facility] 05-03-2023 History of Present illness Narrative 1 Week Post-Op This patient encounter was completed virtually due to COVID-19 (audio/visual) using a secure, HIPPA compliant video chat software program with the patient's consent. Mariia MarreroLeroy Lanny Surgery Date: 04/26/23 AMY LSG, Dr. Talavera CBW: 271 lbs Compliance with Full Liquid Diet: Yes Tolerating by mouth well: Yes Nausea: No Vomiting: No Constipation: No Diarrhea:No Drinking Slowly: Yes Completed food record: Yes Journal brought to appointment: Yes Equate 30g (BID) + water (50 oz) 60g average protein intake (g) 50-60oz average liquid intake (oz) Food/beverage intolerance: none Exercise: able to walk at least 30 min daily VRT MV: womens one a day - need 2 daily Calcium citrate: caltrate - 600mg BID *did advise to switch to calcium citrate supplement instead of calcium carbonate Vit A: 1400mcg within MV -- may benefit from supplement (another 1500mcg/ 5000iu) Vit D: 2000 international unit(s) +1600 international unit(s) from calcium Thiamin: 4.8mg -- reviewed need of 12mg daily B12: 19.2 mcg within MV -- needs 500-1000mcg daily Iron: 36mg within MV - needs 45mg daily Zinc: 16mg within MV Copper: 2.7mg within Mv *will send detailed MC message with supplemental information Written information provided and reviewed: soft diet journal vitamin schedule Reinforced Behaviors: increase exercise: as directed and tolerated vitamin schedule increase liquid intake Patient presents 1 week s/p LSG, doing very well. Able to meet protein fluid goals. Patient reports that she is able to walk around at least 30 minutes daily. Postop vitamins reviewed, will need to add in supplements since her multivitamin does not cover all postop goals. Reviewed phase III recommendations/guidelines with patient via bariatric manual, will advance at 05/10 . Plan: follow up with RD 6 weeks post op Goals advance to phase III at 2 weeks to 8 weeks post op eat 3 meals daily - protein source at each meal endorse in formal exercise 5-7 days per week for 30 min (per sesion) or 150 min of activity/week journal daily and bring to all appointments Total time in direct patient contact = 15 min. Greater than 50% of the time was spent in counseling and/or coordination of care. Camila Saul RD This note was generated using voice recognition technology and may contain grammatical errors. documented in this encounter [facility] 04-29-2023 Miscellaneous Notes I contacted Mariia Coughlin for post-operative follow up s/p Sleeve gastrectomy 1. Do you have someone to care for you now that you are home?YES 2. Are you having pain now that is not relieved by your pain medications?NO 3. Are you able to drink the recommended daily amount of fluids (48 ounces minimum/day) and protein (60-80 grams/day) as prescribed by the armament aircraft mechanic or nutritional counselor? YES 4. Are you taking the vitamins and minerals as prescribed? YES 5. Do you have the device sales consultant number to contact your surgeon if you have a problem or question? YES 6. Are your incisions free of redness, swelling, or drainage? YES (If you have steri strips on your incision sites, these will fall off on their own. You may shower as tolerated). 7. Have your bowels moved since the day of surgery? YES If not, are you passing gas?YES 8. Are you up walking 3-4 times per day?YES 9. Do you have an appointment to see a armament aircraft mechanic or nutritional counselor in the next month?YES 05/04 She is doing very well post-operatively. She is getting 50oz fluids in and 60g of protein in daily, so far. Her pain is well controlled - just some mild gas pain that is relieved with walking. Denies nausea, vomiting, unrelieved abd pain, diarrhea, constipation. She had a small BM this morning. Mukund Morgan APRN.JORGE LUIS documented in this encounter [facility] 04-28-2023 Miscellaneous Notes I contacted Mariia Coughlin for post-operative follow up s/p Sleeve gastrectomy with Dr. Talavera on 04/26/23 No answer - unable to leave voicemail as her VM box is not set up Serenity Kumar APRN.CNP documented in this encounter [facility] 04-27-2023 Note HNO ID: [id number] Author: Hannah Medrano DO Service: General Surgery Author Type: Resident Type: Progress Notes Filed: 04/27/2023 8:32 AM Note Text: Attestation signed by Lynne Talavera MD at 04/27/2023 1:12 PM I saw and evaluated/examined the patient with the resident and personally participated in the altman components. I have reviewed the resident's note and discussed the case and management of the patient's care with the resident. I agree with the above assessment and plan unless otherwise noted below. Plan of care discussed with: Provider, RN, Patient. - Meeting d/c criteria and ready for Dc home. Will need scripts for zofran and tramadol at dc - hold HCTZ for 2-4 weeks after d/c - follow up in clinic next week [facility] ([facility]) Progress Note SERVICE DATE: April 27, 2023 [facility]) Service Pager: For questions or concerns Mon-Fri 6a-5p please page [phone]. After 5pm and on Weekends and Holidays, please page [phone] if in ICU or [phone] if on RNF. Subjective SUBJECTIVE: NAEON. Patient doing well, admits to shoulder pain. Has been tolerating 3-4oz/hr. States she has been ambulating the halls. Tolerating diet DIET BARIATRIC Nausea No Emesis No Flatus Yes Bowel movement No Pain Controlled Yes Ambulating Yes Objective OBJECTIVE: Vitals: Temp (24hrs), Av.7 ?C (98.1 ?F), Min:36.4 ?C (97.5 ?F), Max:37.1 ?C (98.8 ?F) BP 155/90 Pulse 79 Temp 37 ?C (98.6 ?F) (Oral) Resp 16 Ht 170.2 cm (5' 7 ) Wt 126.6 kg (279 lb) LMP 11/28/2011 SpO2 99% BMI 43.70 kg/m? O2 Therapy: Room Air IANDO: Date 04/26/23699 - 04/27/23 0659 04/27/23 0700 - 04/28/23 0659 Shift 3949-6859 3364-6750 7670-2881 24 Hour Total 4511-3676 5258-1152 6947-5738 24 Hour Total INTAKE IV 1000 1000 Volume (mL) (NaCl 0.9% iv infusion) 400 400 Volume (mL) (lactated ringers iv infusion) 100 100 Volume (mL) (lactated ringers iv infusion) 500 500 Shift Total 1000 1000 OUTPUT Blood 10 10 Estimated Blood loss 10 10 Shift Total 10 10 Weight (kg) 126.6 126.6 126.6 126.6 126.6 126.6 126.6 MEDICATIONS Current Facility-Administered Medications Medication Dose Route Frequency lactated ringers iv infusion 150 mL/hr INTRAVENOUS CONTINUOUS pantoprazole DR 40 mg tab(s) (PROTONIX) 40 mg ORAL DAILY (6 AM) ondansetron (PF) 4 mg injection (ZOFRAN) 4 mg INTRAVENOUS q 4 H PRN acetaminophen 650 mg tab(s) (TYLENOL) 650 mg ORAL q 6 H traMADol 50-100 mg tab(s) (ULTRAM) 50-100 mg ORAL q 6 H PRN enoxaparin 40 mg injection (LOVENOX) 40 mg SUBCUTANEOUS q 12 HR Labs: Recent Labs 04/27/23 0450 NA 137 K 4.0 CHLOR 103 CO2 21* BUN 6* CREAT 0.66 GLUC 111* ANION 13 CA 8.8 WBC 12.85* HB 12.9 HCT 37.2 PLT 267 Physical Exam: GENERAL: resting comfortably, in no acute distress HEENT: normocephalic, atraumatic, EOMI NECK: trachea midline, no JVD LUNGS: Unlabored breathing, equal chest rise bilaterally CARDIAC: Regular rate, warm and well perfused extremities ABDOMEN: Soft, abdominal appropriately TTP, non-distended, no rebound or guarding EXTREMITIES: ANDERSON, No deformities, No edema SKIN: Skin color, texture, turgor normal, No rashes or lesions NEURO: AANDO, no gross or motor sensory deficits PSYCH: normal mood and affect ASSESSMENT AND PLAN: Assessment Active Hospital Problems Diagnosis Date Noted Obesity, Class III, BMI 40-49.9 (morbid obesity) (HCC) 04/26/2023 Assessment: 37 year old female with PMH obesity (Body mass index is 47.07 kg/m?.), HTN (HCTZ) and HLD (Crestor) s/p robotic sleeve gastrectomy Hospital Course/Operations/Procedures: 04/26/2023 Procedure(s) with comments: XI ROBOTIC LONGITUDINAL GASTRECTOMY,GASTRIC RESTRICTIVE PROCEDURE, BILATERAL LAPAROSCOPIC TAP BLOCKS - BARIATRIC ERAS EGD INPATIENT ATTENDING: Dr. Lynne Talavera MD, [facility] High-Risk Geriatric Patient Vulnerabilities: Patient is NOT high risk based on evaluation and assessment Plan: INPATIENT ATTENDING: Dr. Lynne Talavera MD, [facility] High-Risk Geriatric Patient Vulnerabilities: Patient is NOT high risk based on evaluation and assessment Robotic sleeve gastrectomy - Diet: DIET BARIATRIC, advanced to jessica II Encouraged 4oz/hr and recording intake - Pain control: ned tylenol, tramadol PRN - LVX for DVT ppx - Cont PPI - Possible dc later this afternoon if tolerating 4oz/hr Anticipated Discharge Disposition: Home with Self Care Discussed with attending: Dr. Talavera Follow up needs: TBD SIGNATURE: Hannah Medrano DO PATIENT NAME: Mariia Coughlin DATE: April 27, 2023 TIME: 8:21 AM Pager: see below [facility]) Service Pager: For questions or concerns Mon-Fri 6a-5p please page [phone]. After 5pm and on Weekends and Holiday (more content not included)... [facility] 04-26-2023 Note HNO ID: [id number] Author: Hannah Medrano DO Service: General Surgery Author Type: Resident Type: Plan of Care Filed: 04/26/2023 7:38 PM Note Text: Plan of Care: Patient seen and examined at bedside. She admits to gas pain which is relieved by standing up and walking. She has been tolerating her liquids and recording appropriately. She denies nausea, chest pain, shortness of breath. Exam: abdomen soft, mildly distended, incisions c/d/I Encouraged IS, ambulation Encouraged 4oz/hr and recording Hannah Medrano DO April 26, 2023 7:38 PM [facility] 04-26-2023 Note HNO ID: [id number] Author: Tamika Carmona APRN.NETWORK OPERATIONS ANALYST Service: ? Author Type: Nurse De Icer Kit Assembler Type: Anesthesia Procedure Notes Filed: 04/26/2023 1:44 PM Note Text: ANESTHESIOLOGY PROCEDURE NOTE Airway General Information Procedure Start Time/Medication Administration: 04/26/2023 1:28 PM Patient location during procedure: OR Timeout Performed Pre-procedure: timeout performed Consent Obtained: Yes Patient identity confirmed: arm band Staffing NETWORK OPERATIONS ANALYST: Tamika Carmona APRN.NETWORK OPERATIONS ANALYST Performed by: KATE Indications and Patient Condition Indications for airway management: anesthesia Preoxygenated: yes anesthesia circuit Patient position: sniffing Method: asleep Difficult Mask: No Final Airway Details Final airway type: endotracheal airway Final Endotracheal Airway: ETT Cuffed: yes Successful intubation technique: direct laryngoscopy Devices used: intubating stylet Endotracheal tube insertion site: oral Blade: Dion Blade size: #3 ETT size (mm): 7.5 Measured from: lips Measurement (cm): 21 Placement verified by: capnometry Cormack-Lehane Classification: grade I - full view of glottis Number of attempts at approach: 1 Failed airway: no Unrecognized esophageal intubation: no Airway not difficult SIGNATURE: Tamika Carmona APRN.CRNA PATIENT NAME: Mariia Coughlin DATE: April 26, 2023 TIME: 1:43 PM CSN: [id number] [facility] 04-22-2023 Note HNO ID: [id number] Author: Christiana Pelaez APRN.[facility] Service: ? Author Type: Nurse Practitioner Type: Progress Notes Filed: 04/22/2023 2:21 PM Note Text: I faxed a request to the surgeon 's office requesting a copy of the medical clearance be faxed to [phone] or scanned into [employer]. Ashley please follow up regarding medical clearance. Thank you. [facility] 04-21-2023 History and physical note HISTORY AND PHYSICAL EXAMINATION SERVICE DATE: 04/20/2023 SERVICE TIME: 10:26 AM PRIMARY CARE PHYSICIAN: RAPHAEL SainiC REASON FOR VISIT: Mariia Coughlin is a 37 year old female who is scheduled for Procedure(s) with comments: XI ROBOTIC LONGITUDINAL GASTRECTOMY,GASTRIC RESTRICTIVE PROCEDURE (N/A) - BARIATRIC ERAS EGD (N/A) LAPAROSCOPIC BIOPSY LIVER (N/A) TRANSFUSION BLOOD (N/A) at the request of Dr. Lynne Talavera for routine H&P. My final recommendation will be communicated back to the requesting physician by way of shared medical record or letter. The reason for this visit is to perform a comprehensive review of the patient's past medical history, assess their current health status and obtain any additional testing required based on anesthesia guidelines. We will also identify any potential anesthesia problems or contraindications to the planned procedure. Subjective The patient has the following: ACTIVE PROBLEM LIST Obesity Due to Excess Calories Without Serious Comorbidity Preop Pulmonary/Respiratory Exam Pre-Op Testing Body Mass Index (Bmi) 45.0-49.9, Adult (Hcc) Hypertension Hyperlipidemia COVID-19 Immunization Status Overdue - COVID-19 VACCINE (1) Overdue - never done No completion, postpone, frequency change, or communication history exists for this topic. CHIEF COMPLAINT: Pre surgical testing HPI: Mariia Coughlin is a 37 year old female who presents to [facility] for a scheduled Gastric restrictive procedure with Dr. Talavera. Patient has been struggling with body weight, attempted dietary and exercise programs and would lose weight and gain back. Since beginning of program patient has lost weight and feels ready for the procedure. Denies recent N/V or difficulty with BM, no abdominal pain. After discussing with surgeon, patient agrees to surgical intervention. Risk and benefits discussed by surgeon. Patient denies any other problems or concerns at this time. REVIEW OF SYSTEMS: General: Negative for: unintentional weight change and fever. Neurological: Negative for: delirium, dementia, headaches, seizures, TIA and strokes. Respiratory: Negative for: asthma, COPD, current cough, dyspnea, pneumonia within 6 weeks, URI < 2 weeks and obstructive sleep apnea. Cardiovascular: Positive for: hyperlipidemia and hypertension Negative for: abdominal aortic aneurysm, angina, atrial fibrillation, CAD, chest pain, DVT/PE and recent MO. GI: See HPI. Negative for: dysphagia, hepatitis, liver disease and ETOH >2 drinks/day. : Negative for: flank pain, hematuria, urinary incontinence and renal failure. RN ENTEROSTOMAL: LMP 03/31/23 appox. Negative for abnormal vaginal bleeding, abnormal vaginal discharge. Endocrine: Negative for: diabetes mellitus, hyperthyroidism, hypothyroidism and hyperparathyroidism. Hematology: Negative for: anemia, factor V Leiden, hemophilia, von Willebrand disease and chronic anti-coagulation/platelet meds. Oncology: No history of CA metastasis, chemo within 30 days, or radiotherapy within 90 days. No history of oncological symptoms or problems. Psych: Negative for: anxiety and depression. Musculoskeletal: Negative for joint pain or swelling, back pain or muscle pain. Skin: Negative for lesions, rash and itching. PAST MEDICAL HISTORY Diagnosis Date HTN (hypertension) Mixed hyperlipidemia Morbid obesity (HCC) PAST SURGICAL HISTORY Procedure Laterality Date CYST/MOLE REMOVAL Left 2020 wrist cyst removal ESSURE DEVICE 2011 FAMILY HISTORY Problem Relation Age of Onset Hypertension Mother Lipids Mother Hypertension Father Lipids Father Arthritis Maternal Grandmother Diabetes Maternal Grandfather Prostate Cancer Paternal Grandfather Social History Tobacco Use Smoking status: Former Packs/day: 0.50 Years: 15.00 Pack years: 7.50 Types: Cigarettes Quit date: 06/2022 Years since quittin.8 Smokeless tobacco: Never Vaping Use Vaping Use: Never used Substance Use Topics Alcohol use: Never Comment: OCCASIONALLY, BUT NOT WHILE Drug use: No Prior to Admission medications as of 04/21/23 1008 Medication Sig Last Dose Taking pantoprazole DR (PROTONIX) 40 mg tablet Take 1 tablet by mouth once daily. TO START AFTER SURGERY. Taking Yes Multivitamin capsule Take 1 capsule by mouth once daily. Taking Yes rosuvastatin (CRESTOR) 5 mg tablet Take 5 mg by mouth once daily. Taking Yes hydroCHLOROthiazide (HYDRODIURIL, ESIDRIX) 12.5 mg tablet Take 12.5 mg by mouth once daily. Taking Yes No medication comments found. ALLERGIES No Known Allergies Objective PHYSICAL EXAM: General: alert and oriented, healthy appearance and morbidly obese. Pertinent negatives noted - not distressed. Skin: normal color, no rash or lesions. HEENT: No additional findings for patient's neck. Cardiovascular: regular rate and rhythm, normal S1 and S2, no rub, murmurs, or gallop. Respiratory: normal breath sounds, no wheezes or crackles. No chest wall deformity or tenderness. Abdomen: bowel sounds present and soft. Pertinent negatives noted - not tender. Extremities: no deformity, no edema or tenderness, no joint swelling or clubbing. Neurological: normal cognition and motor skills. Gait normal. No weakness or sensory deficit. PAIN ASSESSMENT: Pain Pain Level: 0 VITALS: BP 117/79 Pulse 79 Temp 98.4 Resp 16 Ht 5' 6 (1.68m) Wt 285 lb (129.3kg) SpO2 96% LMP 03/31/2023 BMI 46.02 kg/(m^2). Diagnostic tests reviewed for today's visit: Lab Value Units Date High Low HB 13.1 g/dL 12/20/2022 15.5 11.5 HCT 39.5 % 12/20/2022 46.0 36.0 WBC 6.40 k/uL 12/20/2022 11.00 3.70 PLT 292 k/uL 12/20/2022 400 150 NA 138 mmol/L 12/20/2022 144 136 K 4.1 mmol/L 12/20/2022 5.1 3.7 GLUC 99 mg/dL 12/20/2022 99 74 BUN 12 mg/dL 12/20/2022 21 7 CREAT 0.74 mg/dL 12/20/2022 0.96 0.58 PTSEC No results within date range. INR No results within date range. APTT No results within date range. ALT No results within date range. AST No results within date range. TBILI No results within date range. TSH 1.770 mIU/L 02/17/2023 4.200 0.270 Lab Value Units Date High Low HCGQT No results within date range. UHCG No results within date range. HCG, BODY* No results within date range. Lab Value Units Date High Low ABORHD No results within date range. ABSCREEN No results within date range. Hemoglobin A1C (%) Date Value 02/17/2023 4.9 No results found for this or any previous visit (from the past 8760 hour(s)). No results found for this or any previous visit (from the past 85761 hour(s)). Assessment Patient has the following medical conditions which may affect bonny-operative course: Pre-op testing See note for medical conditions which may affect bonny-operative course addressed in visit today. Pre-op instruction given to patient. Hypertension Well controlled on HCTZ 12.5mg Instructed to take BP medication DOS with sip of water. Hyperlipidemia On statin Continue therapy perioperatively Implantable Devices: ESURE Pt instructed to take blood pressure and heart medications DOS. Pt denies blood thinners. Cohen Activity Status Index: METS: Climb a flight of stairs or walk up a hill (5.50 METs) DASI Score: 5.5 Patient denies any chest pain or undue shortness of breath with the above physical activity. Clinical Frailty Scale: 2. Well ARISCAT Score: Age: <=50 Preoperative SpO2: >=96% Respiratory infection in the last month: No Preoperative anemia: No Surgical incision: upper abdominal Duration of surgery: >3 hrs Emergency procedure: No ARISCAT Score: 38 ANESTHESIA FINDINGS: Intubation History: No history of difficult intubation. No abnormal airway history Significant Anesthesia Considerations: none Airway History: No history of difficult airway No abnormal airway history I - PHYSICAL EVALUATION AIRWAY Patient intubated: No. DENTAL Dental findings: teeth intact. II - ANESTHESIA PLAN Anesthetic Plan: general Beta Marycarmen Monitoring Plan Post Procedure Analgesic Plan Prepared for Surgery: optimally prepared for surgery, pending [see comment]. Pending medical clearance CONSULTS: The following consults have been initiated at this time: cardiology (03/23 in letter), primary care/internal medicine (pending, appt 04/20) and pulmonary (02/17 in encounter). Planned Anesthetic: general The Following Tests/Procedures Have Been Initiated: No orders of the defined types were placed in this encounter. Albumin, BMP, T&S, CBC ordered per surgeon. ARISCAT risk index interpretation 0 to 25 points: Low risk: 1.6% pulmonary complication rate 26 to 44 points: Intermediate risk: 13.3% pulmonary complication rate 45 to 123 points: High risk: 42.1% pulmonary complication rate Assessment/Plan Morbid obesity (HCC) [E66.01] PLAN Diagnosis: Planned Procedure: Procedure(s) with comments: XI ROBOTIC LONGITUDINAL GASTRECTOMY,GASTRIC RESTRICTIVE PROCEDURE (N/A) - BARIATRIC ERAS EGD (N/A) LAPAROSCOPIC BIOPSY LIVER (N/A) TRANSFUSION BLOOD (N/A) I spent a total of 40 minutes on the date of the service which included preparing to see the patient, [id number] patient care, completing clinical documentation, obtaining and/or reviewing separately obtained history, performing a medically appropriate examination, and counseling and educating the patient/family/caregiver. Instructions Given to Patient: Instructions located in the after visit summary. Patient given verbal and written preop instructions and voices comprehension and compliance. SIGNATURE: Christiana Pelaez APRN.CNP PATIENT NAME: Mariia Coughlin DATE: April 20, 2023 TIME: 5:43 PM PAGER/CONTACT #: documented in this encounter [facility] 04-20-2023 Instructions Christiana Pelaez APRN.[facility] - 04/20/2023 5:42 PM EDT PATIENT PREOPERATIVE INSTRUCTIONS Your surgeon has scheduled for your procedure at this surgery center: [facility]: [phone], [address] [address] Please enter through the main entrance and proceed to the blue elevators. The [facility] is located to the left of the blue elevator. Please read below carefully for your personalized instructions. Arrival Time for Surgery DATE: 04/26/23 Your surgeon's office will call you with your ARRIVAL TIME for surgery the afternoon before surgery with a scheduled arrival time. If you are scheduled for a Tuesday surgery they will call you Tuesday for your arrival time. Please be aware that emergency situations arise, which may delay or change your surgical time. If this happens, we will notify you as soon as possible and regret any inconvenience. Requirement for Vaccinations : 72 - hour period between getting vaccine and date of surgery. Dietary Restrictions: Preoperative diet per program's recommendation (Please call surgeon, dietitian or bariatric BOW REHAIRER with questions) Please stop ALL clear liquids 2 hours prior to your ARRIVAL TIME. This is important because otherwise your surgery may have to be cancelled. Blood Thinning Medications: - Stop NSAIDS (Ibuprofen, Advil, Aleve, Motrin, Celebrex, Mobic, etc.) 7 days before surgery, as directed by your surgeon. You may take Tylenol (Acetaminophen) or any of your pain medications that do not contain aspirin or NSAIDS as needed. IF YOU TAKE ANY OF THE FOLLOWING BLOOD THINNERS, PLEASE CONTACT YOUR SURGEON AND THE PHYSICIAN WHO PRESCRIBES IT FOR YOU IN ORDER TO GET PERIOPERATIVE INSTRUCTIONS SOON POSSIBLE. BLOOD THINNERS: Aspirin , Coumadin, Plavix, Eliquis, Pradaxa, Xarelto, Lovenox, Brilinta, Effient, Savaysa, Arixtra, etc - Stop Vitamin E, fish oil, multivitamins, Marijuana, CBD oil and other over the counter herbals and dietary supplements 7 days before surgery. - This would not apply to cancer patients who are prescribed Marinol or any other prescription form on marijuana or CBD. Medications: Discontinue use of BHANU inhibitors and Angiotensin Receptor Blockers (ARBs) 24 hours prior to surgery. Diabetes Please follow up with the provider that manages your diabetes and how to prepare you for surgery. If you are taking the following medications for Type 2 diabetes: Canagliflozin (INVOKANA), dapagliflozin (FARXIGA), and empagliflozin (JARDIANCE) should each be discontinued at least 3 days before scheduled surgery. Ertugliflozin (STEGLATRO) should be discontinued at least four days before scheduled surgery. If you have a stimulator, implant or pump that requires a remote please bring the remote with you day of surgery. Erectile dysfunction If you take any medications for erectile dysfunction- Cialis (Tadalafil), Levitra, Staxyn, (Vardenafil), Viagra (Sildenenafil). Please do not take these for 48 hours before surgery. Pain Medications Tylenol for pain as needed and if you are not allergic to. Medications to be taken with small amount of fluid on the morning of surgery: If you start any new medications after today's visit, please contact the surgeon's office. Important Reminders: - If you use CPAP/BIPAP, bring the machine with you to the surgery center. - If you are prescribed inhalers for breathing, continue using them AND bring them to the surgery center. - Candy, mints, gum and tobacco products are NOT permitted the morning of surgery. - Hearing aids, dentures and glasses may be worn the morning of surgery. - NO jewelry, body piercings, makeup, hairpins or contacts are to be worn the day of surgery. - Oral hygiene and a shower or bath is required the evening before or the morning of surgery. Use the Hibiclens body wash supplied to you along with the instruction if applicable. - NO lotion, creams, powders or deodorants on the skin the day of surgery. - Wear loose, comfortable clothing that will accommodate bandages. - Your length of stay will be determined by your surgeon. - You will need to have someone else (Family or friend) drive you home once discharged from the hospital. You are not allowed to drive yourself home after surgery. - YOU MUST HAVE A RESPONSIBLE STRIKE PLATE ATTACHER TAKE YOU HOME. A ELECTRONICS LEAD, CAB OR UBER STRIKE PLATE ATTACHER CANNOT BE MADE A RESPONSIBLE STRIKE PLATE ATTACHER. - We recommend that a responsible person stays with you overnight to take care of you. - You cannot stay in a hotel alone after outpatient surgery. You will not be permitted to have your surgery, if you do not have someone to take care of you. Visitation: [facility] in [place] Visitation hours: 7 AM to 9 PM. Masks are required. Pre-Surgery Unit - Patients may have up to 2 visitors at a time. PACU recovery Unit - Patients may have up to 1-2 visitors at a time. [facility] surgery [place] Pre-Surgery area - 1 visitor at a time due to limited space. No children allowed into preop. If the family member does bring their child/children, no one will be allowed back to preop. We have very limited space in each room. PACU recovery area - No visitors due to limited space unless patient is a minor. If you develop symptoms such as a fever, cold, or flu, or have other changes to your health within TWO DAYS of scheduled surgery or the morning of surgery, please contact the surgeon's office. Personal Belongings: - Leave ALL valuables and money at home or with family members. - You will need a form of ID and insurance card to check in the morning of surgery. - You will have to wear a hospital gown during your stay but if you wish to bring undergarments for after surgery you may. Ambulatory surgery center [place] - Orthopedic patients needing a walker should bring the walker into the building day of surgery. Orthopedic patients having surgery [facility] listed as outpatient should bring their walker into the building. Orthopedic patients having surgery [facility] listed as to be admitted should leave their walkers in the car or with a family member. Hibiclens provided per NICOLE Pelaez APRN.CNP 04/20/23 documented in this encounter [facility] 04-20-2023 Note HNO ID: [id number] Author: Serenity Kumar APRN.CNP Service: ? Author Type: Nurse Practitioner Type: Progress Notes Filed: 04/20/2023 9:11 AM Note Text: Date: April 20, 2023 Time: 8:34 AM DISTANCE HEALTH VISIT This Team Access Model visit is a virtual encounter. It required patient-provider interaction for the medical decision making as documented below. Consent was obtained to complete today's distance health visit. I have communicated my name and active licensure. The patient's identity and physical location were verified at the time of this visit. Either the patient or their legal veterans employment representative has been informed of the risks and benefits of -- and alternatives to -- treatment through a remote evaluation and consents to proceed with the evaluation remotely. Name: Mariia Coughlin CHIEF COMPLAINT: This is a 37 year old female with morbid obesity who presents to clinic for bariatric surgery and is completing educational class today. HISTORY OF PRESENTING ILLNESS: This individual is currently enrolled in the [facility]ariat[facility] Program persuing weight loss surgery and presents to complete preoperative requirements.Mariia Coughlin has been seen monthly for medically supervised weight loss and is being evaluated on their lifestyle modifications.Denies any difficulty hearing presentation. Denies any difficulty visualizing educational materials PHYSICAL EXAM: General Appearance: Well appearing, alert, in no acute distress, well-hydrated, well nourished. IMPRESSION: Mariia Coughlin is a 37 year old female with the following diagnosis and co-morbidities: Morbid (severe) obesity PLAN: Counseling and surgical care coordination was addressed during this educational class. Pathophysiology and side effects of surgery were discussed. Medications to be stopped 2 weeks and 1 week prior to surgery were discussed. Discharge instructions in terms of dietary restrictions, activity requirements, medications, follow-up were reviewed. Vitamins and supplements were reviewed with samples provided. Additionally, signs and symptoms of vitamin deficiencies reviewed. Postoperative medication management was explained. Received prevention education in terms of post operative problems and complications. Patient was educated on signs and symptoms requiring immediate and/or emergent medical attention. This patient also received dietary education. Patient was educated on incision care, signs of surgical site infection, and importance of contacting surgical team for incision concerns. Patient was educated on risk and should not get within two years after bariatric surgery (if applicable). could result in very poor weight loss and could be dangerous for the baby. This individual received an educational handouts reviewing the for mentioned class materials. At the end of class, Mariia Coughlin was provided time to answer questions. Denies any further questions or concerns. The [facility] Patient agreement was reviewed and Mariia Coughlin received a copy of the patient agreement. The patient is aware by receiving this agreement, this accepts their understanding of the agreement and that surgery may not be recommended for medical and behavorial health reasons. Total time of virtual encounter: 60 minutes Serenity Kumar APRN.[facility] 04-20-2023 History of Present illness Narrative Date: April 20, 2023 Time: 8:34 AM DISTANCE HEALTH VISIT This Team Access Model visit is a virtual encounter. It required patient-provider interaction for the medical decision making as documented below. Consent was obtained to complete today's distance health visit. I have communicated my name and active licensure. The patient's identity and physical location were verified at the time of this visit. Either the patient or their legal veterans employment representative has been informed of the risks and benefits of -- and alternatives to -- treatment through a remote evaluation and consents to proceed with the evaluation remotely. Name: Mariia Coughlin CHIEF COMPLAINT: This is a 37 year old female with morbid obesity who presents to clinic for bariatric surgery and is completing educational class today. HISTORY OF PRESENTING ILLNESS: This individual is currently enrolled in the Bariatric Center Program persuing weight loss surgery and presents to complete preoperative requirements.Mariia Coughlin has been seen monthly for medically supervised weight loss and is being evaluated on their lifestyle modifications.Denies any difficulty hearing presentation. Denies any difficulty visualizing educational materials PHYSICAL EXAM: General Appearance: Well appearing, alert, in no acute distress, well-hydrated, well nourished. IMPRESSION: Mariia Coughlin is a 37 year old female with the following diagnosis and co-morbidities: Morbid (severe) obesity PLAN: Counseling and surgical care coordination was addressed during this educational class. Pathophysiology and side effects of surgery were discussed. Medications to be stopped 2 weeks and 1 week prior to surgery were discussed. Discharge instructions in terms of dietary restrictions, activity requirements, medications, follow-up were reviewed. Vitamins and supplements were reviewed with samples provided. Additionally, signs and symptoms of vitamin deficiencies reviewed. Postoperative medication management was explained. Received prevention education in terms of post operative problems and complications. Patient was educated on signs and symptoms requiring immediate and/or emergent medical attention. This patient also received dietary education. Patient was educated on incision care, signs of surgical site infection, and importance of contacting surgical team for incision concerns. Patient was educated on risk and should not get within two years after bariatric surgery (if applicable). could result in very poor weight loss and could be dangerous for the baby. This individual received an educational handouts reviewing the for mentioned class materials. At the end of class, Mariia Coughlin was provided time to answer questions. Denies any further questions or concerns. The [facility] Patient agreement was reviewed and Mariia Coughlin received a copy of the patient agreement. The patient is aware by receiving this agreement, this accepts their understanding of the agreement and that surgery may not be recommended for medical and behavorial health reasons. Total time of virtual encounter: 60 minutes Serenity Kumar APRN.CNP documented in this encounter [facility] 04-13-2023 Note HNO ID: [id number] Author: Mukund Morgan APRN.CNP Service: ? Author Type: Nurse Practitioner Type: Progress Notes Filed: 04/13/2023 9:27 AM Note Text: BARIATRIC SURGERY CLINIC FOLLOW UP NOTE DISTANCE HEALTH VISIT This Team Access Model visit is a virtual encounter. It required patient-provider interaction for the medical decision making as documented below. Consent was obtained to complete today's distance health visit. I have communicated my name and active licensure. The patient's identity and physical location were verified at the time of this visit. Either the patient or their legal veterans employment representative has been informed of the risks and benefits of -- and alternatives to -- treatment through a remote evaluation and consents to proceed with the evaluation remotely. HPI: Mariia Coughlin a 37 year old female is scheduled for Lap Sleeve Gastrectomy with Dr. Talavera. No recent illnesses, hospitalizations, or fevers/chills. She has started her liquid diet today. HISTORY REVIEWED (electronic chart updated): - medical history - medications - allergies PAST MEDICAL HISTORY Diagnosis Date HTN (hypertension) Mixed hyperlipidemia NEGATIVE MEDICAL HISTORY Social: Social History Tobacco Use Smoking status: Former Packs/day: 0.50 Years: 15.00 Pack years: 7.50 Types: Cigarettes Quit date: 06/2022 Years since quittin.8 Smokeless tobacco: Never Vaping Use Vaping Use: Never used Substance Use Topics Alcohol use: Never Comment: OCCASIONALLY, BUT NOT WHILE Drug use: No Medications: Current Outpatient Medications Medication Sig Multivitamin capsule Take 1 capsule by mouth once daily. rosuvastatin (CRESTOR) 5 mg tablet Take 5 mg by mouth once daily. hydroCHLOROthiazide (HYDRODIURIL, ESIDRIX) 12.5 mg tablet Take 12.5 mg by mouth once daily. No current facility-administered medications for this visit. REVIEW OF SYSTEMS General: No fatigue or fevers HEENT: Negative for frequent or significant headaches, No changes in hearing or vision, no nose bleeds or other nasal problems PAP Therapy: Not needed. GI:No nausea, vomiting, or diarrhea and No heartburn or reflux symptoms Muskuloskeletal: Negative for joint pain or swelling, back pain or muscle pain Skin: Negative for lesions, rash, and itching Psych: Negative for sleep disturbance, mood disorder and recent psychosocial stressors PHYSICAL EXAMINATION Wt 131.1 kg (289 lb) BMI 46.65 kg/m2 Ht 167.6 cm (5' 6 ) BMI 46.65 kg/m2 GENERAL APPEARANCE: Pleasant, interacts appropriately and in no apparent distress. Appropriately groomed, happy, smiling, and interactive SKIN: Skin of normal texture, temperature without rashes/lesions/ulcerations. LUNGS: unlabored on room air negative findings: normal respiratory rate no cough NEURO/PSYCH: Oriented to person, place, time; appropriate insight and judgement. Appropriate affect. Diagnostic Tests Reviewed for Today's Visit No new labs The plan of treatment for Mariia Coughlin is: Work-up: EGD: defer to UGI Upper GI: WNL RUQ US: WNL Sleep Study: NA per pulmonology CXR:WNL EKG: per cardiac clearance H Pylori: NA, sleeve gastrectomy Labs: completed and reviewed Nicotine: negative Tox screen: negative Antiplatelet/anticoagulants: No Immunosuppressive therapy: No Estrogen therapy: No Evaluations Psychology: completed Nutrition: completed Education class: completed Clearances: Cardiac (cleared OV 03/23), and Pulmonary (cleared phone call 02/17), PCP Risk Calculator: VTE Risk: OR time <3hrs = 0.16% OR time >3hrs = 0.25% Post-op Medications: Extended Lovenox: not needed Actigall: NA, known cholelithiasis H2 marycarmen/PPI: will require ASSESSMENT/PLAN: 1. Class 3 severe obesity with serious comorbidity and body mass index (BMI) of 45.0 to 49.9 in adult, unspecified obesity type (HCC) - ICD9: 278.01, V85.42, ICD10: E66.01, Z68.42 - Sleeve gastrectomy procedure scheduled with Dr. Talavera on 04/26 - Educated on pre and post-surgical instructions today. - PANTOPRAZOLE 40 MG TABLET,DELAYED RELEASE - ACETAMINOPHEN 500 MG TABLET Mukund Morgan APRN.CNP Preoperative instructions discussed with the patient in detail. Discussed stopping all NSAIDs medication, herbal remedies, vitamins 7 days prior to surgery. Reviewed further medications to stop 1 day prior to surgery, medications to take the morning of surgery if applicable Discussed medications in detail, all questions were answered. Discharge instructions were discussed with the patient. We discussed symptoms and signs that warrant immediate medical attention (rare). We discussed signs and symptoms that warrant a phone call to the office. We discussed that some nausea is expected immediately after surgery, if unable to tolerate oral intake to please contact the office immediately. We discussed that some postoperative pain is expected, if he were to express severe abdom (more content not included)... [facility] 04-13-2023 Instructions Mukund Morgan APRN.CNP - 04/13/2023 8:42 AM EDT Images from the original note were not included. Stop taking NSAID medication, herbal supplements, fish oil, flaxseed oil 7 days prior to surgery because they thin your blood. Tylenol (Acetaminophen) is permitted before surgery. If you have diabetes or high blood pressure you must make an appointment to visit your primary care provider ONE WEEK after surgery to regulate your medication. BEFORE SURGERY CHECKLIST The evening before surgery, consume 28-32 ounces of Gatorade or 1 Ensure Clear The day of surgery, consume 20 ounces of Gatorade or 1 Ensure Clear. This must be completed before you arrive to the surgery center (2 hours before) Continue to consume clear liquids until you arrive to surgery (2 hours before) STOP the following medications 1 day before surgery: hydrochlorothiazide TAKE the following medications the morning of surgery: NONE 12 hours before surgery shower with anti-bacterial soap, Chlorhexidine. Do not apply lotions, powder, or make-up. Apply clean clothing and bedding after your shower. Please remove your jewelry, including wedding band! ITEMS TO BRING TO THE HOSPITAL: CPAP/BiPAP if you are being treated for sleep apnea. Comfortable walking shoes You will remain in a hospital gown during your stay. You may bring undergarments to wear. The [facility] Laparoscopic Sleeve Gastrectomy What You Should Know: Laparoscopic Sleeve Gastrectomy is a newer type of less invasive surgery done for weight loss. A Sleeve Gastrectomy is surgery to remove part of your stomach. The stomach is a hollow organ that breaks down food into nutrients (small pieces your body can take in). It absorbs (takes in) some of these nutrients and the rest then pass into your small intestine (bowel). Your stomach is connected to your mouth by a tube called the esophagus. Laparoscopic Sleeve Gastrectomy is done using special tools put into small incisions (cuts) made in your abdomen (belly). The laparoscope is a long metal tool with a tiny video camera and light at the tip. Your surgeon can see your stomach and other parts inside your abdomen by watching on a video screen. Your surgeon uses other special tools to cut and remove part of the stomach. After surgery you should have less pain and faster healing compared to having an open (large incision) sleeve gastrectomy. Your home medicines are: High protein supplement, stomach acid medication every morning, pain medication, PLUS any home medications that you will be instructed to continue. Medicines: Keep a written list of the medicines you take, the amounts, and when and why you take them. Bring the list of your medicines or the pill bottles when you see your caregivers. Learn why you take each medicine. Ask your caregiver for information about your medicine. Do not take any medicines, [id number] drugs, vitamins, herbs or food supplements without first talking to your caregivers. Always take your medicine as directed by caregivers. Call your caregiver if you think your medicines are not helping or if you feel you are having side effects. Do not quit taking your medicines until you discuss it with your caregiver. If you are taking medicine that makes you drowsy, do not drive or use heavy equipment. Acetaminophen: Use acetaminophen (Tylenol) to decrease pain or lower a fever. Do not use aspirin or non-steroidal anti-inflammatory medicines (NSAIDs). Aspirin and NSAIDs may cause stomach irritation, an ulcer or bleeding. Read labels so that you know the active ingredients in each medicine that you use. Pain medicine: You may be given medicine to take at home to take away or decrease pain. Your caregiver will tell you how much to take and how often to take it. Take the medicine exactly as directed by your caregiver. Do not wait until the pain is too bad before taking the medicine. The medicine may not work as well at controlling your pain if you wait too long to take it. Tell your doctor if the pain medicine does not help or if your pain comes back too soon. Vitamins: You will only need to take these once you go home if you choose a high protein supplement without vitamins in it. Follow-Up Visit Information: See schedule given in class. Keep all your appointments. Write down any questions you may have. This way you will remember to ask these questions during your next visit. You have an appointment scheduled for 7-10 days after surgery: Phone call: You will receive a phone call 24-48 hours after your discharge from the hospital. We will be checking on your progress and making sure that you don't have any questions or concerns. What Can I Eat After I had Sleeve Gastrectomy Surgery? You will need to eat a full liquid diet for two (2) weeks before starting a diet of soft foods. Refer to handouts given in education class for sample menus. At 2-week follow-up appointment the Dietitian will advance you to soft foods. Drink the right type of liquids. Drink water or sugar-free drinks. These include non-carbonated, caffeine-free diet drinks, tea, coffee and skim or 1% low-fat milk. Drinking plenty of liquids is important during weight loss. Drink small amounts of liquid often throughout the day. Try to drink at least 8 (8 ounce) cups of liquid each day, which equals 64 ounces. No alcoholic beverages for 6 months. INCISION CARE Incisions must be kept clean and dry. Proper care of incisions promotes healing, reduces scarring, and reduces the risk of an infection. Follow these instructions for incision care very carefully. Some general tips about caring for incisions include: Always wash your hands before and after touching your incisions. Always inspect your incisions and wounds every day for signs of infection. Clothing: Avoid wearing tight clothes that rub on the incisions. Itching: Incisions may feel itchy as they heal; this is normal. Don't scratch them. If the itchiness gets worse instead of better, call your surgical team. This may be a sign of infection or that stitches are too tight. Lump/bump: You may feel a small lump or bump under your incision; this is normal. If the lump or bump gets worse, call your surgical team Steri-Strips: You may wash or shower with steri-strips in place. Cleanse the area with mild soap and water and gently pat dry with a clean towel or cloth. Do not pull, tug, or rub steri-strips. Tissue glue: The glue should be kept dry and the incisions should be kept out of direct sunlight. The glue will dry out and fall off within five to 10 days. What are the signs of a possible infection in an incision? A wound that has green or yellow drainage A bad odor from the incision Opening of the incision line -- it gets deeper, longer, or wider Redness that goes beyond the basic edge of the incision -- site should show signs of improvement and not getting redder Warmth, hardness, around the incision. Fever (greater than 101 degrees Fahrenheit or 38.4 degrees Celsius), sweating, or chills When is it important to call your surgical team? It is always best to contact your surgical team first if you have any concerns about your incisions. Bleeding that does not stop with pressure If there is any sign of infection (see question, what are the signs of a possible infection ). If you have questions or confusion about incision care instructions What self-care instructions should I be aware of? You may shower the day after surgery. Carefully wash the incisions with soap and water. Check your incisions every day. Look for redness, swelling or drainage. If you cannot reach the incision areas, ask someone else to help you, or look in the mirror. Leave your incisions open to air. Do not put any lotions or ointments on your incisions. Do not miss any medical appointments. It is important to follow your weight loss team's instructions for the rest of your life. This includes changing your eating habits and lifestyle, taking vitamins and supplements, and going to regular medical appointments. If you do these things, you will decrease your risk of problems. Begin walking the night of surgery. The goal is to walk 30 minutes in total every day. You will start by walking for 5 minutes six times a day. As you start to feel stronger you can add your minutes together, walking 7 minutes, then 10 minutes at a stretch, but for a total of 30 minutes per day. Do not try to get until you have lost the weight that you want to lose. Your weight should be stable, which could take as much as 2 years after surgery. Getting while quickly losing weight could hurt you and your unborn baby. If you want to get , talk to your doctor and caregivers about this first. Driving: You may drive in approximately 1 week. You must be off your narcotic pain medications. Sexual [place] (sex): You may have sex in approximately 1 week, as long as you are pain free Lifting and moving objects: Nothing more than 10 pounds for 6 weeks. Returning to work or school: In approximately 2 - 3 weeks, unless heavy lifting is involved. Where can I go for information and support? Talk to your caregivers, family and friends about sleeve gastrectomy and weight loss. Let them help you before and after surgery. Join a bariatric support group and begin attending meetings before you to go to surgery. This is a group of people who plan to have or have already had weight loss surgery. Ask your caregiver for the names and numbers of support groups near you. For more information about support groups, obesity and weight loss surgery, contact the following: [employer] [address] [place] [address], [place], [place] www.obesity.org [employer] ([employer]) [address] [id number] www.asmbs.org See the attached support group meeting schedule SEEK CARE IMMEDIATELY IF: You have sudden chest pain, trouble breathing, or are coughing up blood. Call 911 or 0 ([facility] Program Director) to get to the nearest hospital or clinic. DO NOT DRIVE YOURSELF! You cannot stop throwing up. You feel restless, short of breath, or feverish (over 100 F). You have pain or pressure in your stomach or back, you have the hiccups, or have a very fast heart rate that will not slow down. CALL during office or after hours: It is always best to contact your surgical team first if you have any concerns about your incisions. Bleeding that does not stop with pressure If there is any sign of infection If you have questions or confusion about incisions care or instructions You have new swelling or pain in the calf of your leg. Call if you feel sick to your stomach and the feeling will not go away. You have any questions or concerns about your sleeve gastrectomy or your care. documented in this encounter [facility] 04-13-2023 History of Present illness Narrative BARIATRIC SURGERY CLINIC FOLLOW UP NOTE DISTANCE HEALTH VISIT This Team Access Model visit is a virtual encounter. It required patient-provider interaction for the medical decision making as documented below. Consent was obtained to complete today's distance health visit. I have communicated my name and active licensure. The patient's identity and physical location were verified at the time of this visit. Either the patient or their legal veterans employment representative has been informed of the risks and benefits of -- and alternatives to -- treatment through a remote evaluation and consents to proceed with the evaluation remotely. HPI: Mariia Coughlin a 37 year old female is scheduled for Lap Sleeve Gastrectomy with Dr. Talavera. No recent illnesses, hospitalizations, or fevers/chills. She has started her liquid diet today. HISTORY REVIEWED (electronic chart updated): - medical history - medications - allergies PAST MEDICAL HISTORY Diagnosis Date HTN (hypertension) Mixed hyperlipidemia NEGATIVE MEDICAL HISTORY Social: Social History Tobacco Use Smoking status: Former Packs/day: 0.50 Years: 15.00 Pack years: 7.50 Types: Cigarettes Quit date: 06/2022 Years since quittin.8 Smokeless tobacco: Never Vaping Use Vaping Use: Never used Substance Use Topics Alcohol use: Never Comment: OCCASIONALLY, BUT NOT WHILE Drug use: No Medications: Current Outpatient Medications Medication Sig Multivitamin capsule Take 1 capsule by mouth once daily. rosuvastatin (CRESTOR) 5 mg tablet Take 5 mg by mouth once daily. hydroCHLOROthiazide (HYDRODIURIL, ESIDRIX) 12.5 mg tablet Take 12.5 mg by mouth once daily. No current facility-administered medications for this visit. REVIEW OF SYSTEMS General: No fatigue or fevers HEENT: Negative for frequent or significant headaches, No changes in hearing or vision, no nose bleeds or other nasal problems PAP Therapy: Not needed. GI:No nausea, vomiting, or diarrhea and No heartburn or reflux symptoms Muskuloskeletal: Negative for joint pain or swelling, back pain or muscle pain Skin: Negative for lesions, rash, and itching Psych: Negative for sleep disturbance, mood disorder and recent psychosocial stressors PHYSICAL EXAMINATION Wt 131.1 kg (289 lb) BMI 46.65 kg/m2 Ht 167.6 cm (5' 6 ) BMI 46.65 kg/m2 GENERAL APPEARANCE: Pleasant, interacts appropriately and in no apparent distress. Appropriately groomed, happy, smiling, and interactive SKIN: Skin of normal texture, temperature without rashes/lesions/ulcerations. LUNGS: unlabored on room air negative findings: normal respiratory rate no cough NEURO/PSYCH: Oriented to person, place, time; appropriate insight and judgement. Appropriate affect. Diagnostic Tests Reviewed for Today's Visit No new labs The plan of treatment for Mariia Coughlin is: Work-up: EGD: defer to UGI Upper GI: WNL RUQ US: WNL Sleep Study: NA per pulmonology CXR:WNL EKG: per cardiac clearance H Pylori: NA, sleeve gastrectomy Labs: completed and reviewed Nicotine: negative Tox screen: negative Antiplatelet/anticoagulants: No Immunosuppressive therapy: No Estrogen therapy: No Evaluations Psychology: completed Nutrition: completed Education class: completed Clearances: Cardiac (cleared OV 03/23), and Pulmonary (cleared phone call 02/17), PCP Risk Calculator: VTE Risk: OR time <3hrs = 0.16% OR time >3hrs = 0.25% Post-op Medications: Extended Lovenox: not needed Actigall: NA, known cholelithiasis H2 marycarmen/PPI: will require ASSESSMENT/PLAN: 1. Class 3 severe obesity with serious comorbidity and body mass index (BMI) of 45.0 to 49.9 in adult, unspecified obesity type (HCC) - ICD9: 278.01, V85.42, ICD10: E66.01, Z68.42 - Sleeve gastrectomy procedure scheduled with Dr. Talavera on 04/26 - Educated on pre and post-surgical instructions today. - PANTOPRAZOLE 40 MG TABLET,DELAYED RELEASE - ACETAMINOPHEN 500 MG TABLET Mukund Morgan APRN.CNP Preoperative instructions discussed with the patient in detail. Discussed stopping all NSAIDs medication, herbal remedies, vitamins 7 days prior to surgery. Reviewed further medications to stop 1 day prior to surgery, medications to take the morning of surgery if applicable Discussed medications in detail, all questions were answered. Discharge instructions were discussed with the patient. We discussed symptoms and signs that warrant immediate medical attention (rare). We discussed signs and symptoms that warrant a phone call to the office. We discussed that some nausea is expected immediately after surgery, if unable to tolerate oral intake to please contact the office immediately. We discussed that some postoperative pain is expected, if he were to express severe abdominal pain please contact the office. Received extensive teaching regarding incision care, signs and symptoms of a surgical infection, and reviewed to contact the surgical team for any concerns regarding incisions. Confirmed completed patient education class prior to scheduled surgery. Patient verbally confirms the above information. This information was sent to the patient through a [email or web address] message as well. I spent a total of 20 minutes on the date of the service which included preparing to see the patient, [id number] patient care, completing clinical documentation, obtaining and/or reviewing separately obtained history, performing a medically appropriate examination, counseling and educating the patient/family/caregiver, and ordering medications, tests, or procedures. Medical Decision Making: Problems: Low: Stable chronic illness Data: Unique source(s) for external note(s) reviewed: 1 Unique test result(s) reviewed: 1 Assessment requiring an independent historian(s) Risk: Moderate: Drug management Medical Decision Making Level: 4 - Moderate documented in this encounter [facility] 03-30-2023 Note HNO ID: [id number] Author: Lynne Talavera MD Service: ? Author Type: Physician Type: Progress Notes Filed: 03/30/2023 10:05 AM Note Text: BARIATRIC SURGERY NEW PATIENT CONSULTATION HISTORY AND PHYSICAL Date: March 30, 2023 Time: 9:42 AM Mariia Coughlin is a 37 year old year old female with obesity (Body mass index is 47.07 kg/m?.), HTN (HCTZ) and HLD (Crestor) who presents to the clinic today for her final visit prior to bariatric surgery. She has met all requirements for bariatric surgery. Her weight today is 291 pounds, which is down from her initial weight of 296 pounds. Per previous clinic note: This patient has struggled with weight related concerns for most of their life. They have attempted weight loss with diet and exercise programs - [employer] , OTC diet pills, a weight loss program through her chiropractor, weight watchers, and others without terminal operator success. The most weight they have lost was 40 through the program offered by her Chiropractor, but she was not able to maintain the program due to cost and then re-gained it. They attribute weight gain to transitioning to a more sedentary job - after which she gained 50 pounds. The heaviest adult weight they can recall was 296 pounds - which is her weight today and the healthiest adult weight they can recall was 175 pounds in her early 20s. They endorse a history of HTN and HLD for which she is on medications. She was diagnosed with both of these and started medications in September of 2022. She denies daily Heartburn symptoms. She reports rare symptoms with clear food triggers - which occur at most once per month. She has never taken any medications for reflux. She denies current use of NSAIDS. She denies any personal history of MO, DM, CVA or other health concerns. Her mother was a diabetic. Social: former smoker - quit 06/2022 - smoked 1/2 ppd x 15 years; seldom etoh use; denies use of marijuana or illicit drugs. 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 PSHx: excision of cyst from right wrist, has TL via ensure coils PAST MEDICAL HISTORY Diagnosis Date HTN (hypertension) Mixed hyperlipidemia NEGATIVE MEDICAL HISTORY PAST SURGICAL HISTORY Procedure Laterality Date CYST/MOLE REMOVAL wrist cyst removal ESSURE DEVICE 2011 NONE FAMILY HISTORY Problem Relation Age of Onset Hypertension Mother Lipids Mother Hypertension Father Lipids Father Arthritis Maternal Grandmother Diabetes Maternal Grandfather Prostate Cancer Paternal Grandfather Social History Tobacco Use Smoking status: Former Packs/day: 0.50 Years: 15.00 Pack years: 7.50 Types: Cigarettes Quit date: 06/2022 Years since quittin.7 Smokeless tobacco: Never Vaping Use Vaping Use: Never used Substance Use Topics Alcohol use: Never Comment: OCCASIONALLY, BUT NOT WHILE Drug use: No Current Outpatient Medications Medication Sig Multivitamin capsule Take 1 capsule by mouth once daily. rosuvastatin (CRESTOR) 5 mg tablet Take 5 mg by mouth once daily. hydroCHLOROthiazide (HYDRODIURIL, ESIDRIX) 12.5 mg tablet Take 12.5 mg by mouth once daily. No current facility-administered medications for this visit. ALLERGIES No Known Allergies Review of Systems Constitutional: Negative for chills, diaphoresis, fever and malaise/fatigue. HENT: Negative for congestion, hearing loss, nosebleeds, sinus pain, sore throat and tinnitus. Eyes: Negative for blurred vision, double vision, pain and redness. Respiratory: Negative for cough, hemoptysis, sputum production, shortness of breath and wheezing. Cardiovascular: Positive for leg swelling. Negative for chest pain, palpitations, orthopnea and PND. Claudication: mild at end of day. Gastrointestinal: Negative for abdominal pain, blood in stool, constipation, diarrhea, heartburn, nausea and vomiting. Genitourinary: Negative for dysuria, frequency, hematuria and urgency. Musculoskeletal: Positive for back pain and neck pain. Negative for falls, joint pain and myalgias. Skin: Negative for itching and rash. Neurological: Negative for dizziness, speech change, focal weakness, seizures, loss of consciousness, weakness and headaches. Endo/Heme/Allergies: Does not bruise/bleed easily. Psychiatric/Behavioral: Negative for depression, hallucinations, memory loss, substance abuse and suicidal ideas. The patient is not nervous/anxious and does not have insomnia. Physical Exam Vitals reviewed. Constitutional: Appearance: Normal appearance. She is obese. HENT: Head: Normocephalic and atraumatic. Nose: Nose normal. Eyes: General: No scleral icterus. Extraocular Movements: Extraocular movements intact. Conjunctiva/sclera: Conjunctivae normal. Pupils: Pupils are equal, round, and reactive to light. Cardiovascular: Rate and Rhythm: Normal rate. Pulmonary: Effort: Pulmonary effort is normal. No re (more content not included)... [facility] 03-30-2023 Note HNO ID: [id number] Author: Katja Rice RN Service: ? Author Type: Registered Nurse Type: Progress Notes Filed: 03/30/2023 10:05 AM Note Text: Patient given written material for VLCD and post op education. Patient advised to contact her PCP for surgical clearance. Will fax the medical clearance letter today. Katja Rice RN March 30, 2023 9:33 AM [facility] 03-30-2023 Note HNO ID: [id number] Author: Serenity Kumar APRN.JORGE LUIS Service: ? Author Type: Nurse Practitioner Type: Progress Notes Filed: 03/30/2023 10:05 AM Note Text: Further Work-up: EGD: defer to UGI Upper GI: WNL RUQ US: WNL Sleep Study: NA per pulmonology CXR:WNL EKG: per cardiac clearance H Pylori: NA, sleeve gastrectomy Labs: completed and reviewed Nicotine: negative Tox screen: negative Antiplatelet/anticoagulants: No Immunosuppressive therapy: No Estrogen therapy: No Evaluations Psychology: completed Nutrition: completed Education class: completed Clearances: Cardiac (cleared OV 03/23), and Pulmonary (cleared phone call 02/17), PCP Risk Calculator: VTE Risk: OR time <3hrs = 0.16% OR time >3hrs = 0.25% Post-op Medications: Extended Lovenox: not needed Actigall: NA, known cholelithiasis H2 marycarmen/PPI: will require PST orders placed Serenity Kumar APRN.CNP [facility] 03-30-2023 Miscellaneous Notes Medical clearance letter faxed to Jesus Rice RN March 30, 2023 10:58 AM documented in this encounter [facility] 03-23-2023 Note HNO ID: [id number] Author: Serenity Kumar APRN.CNP Service: ? Author Type: Nurse Practitioner Type: Progress Notes Filed: 03/23/2023 2:58 PM Note Text: I agree with the below assessment and plan of care Serenity Kumar APRN.CNP [facility] 03-23-2023 Note HNO ID: [id number] Author: Mukund Morgan APRN.CNP Service: ? Author Type: Nurse Practitioner Type: Progress Notes Filed: 03/23/2023 2:58 PM Note Text: BARIATRIC SURGERY CLINIC FOLLOW UP NOTE DISTANCE HEALTH VISIT This Team Access Model visit is a virtual encounter. It required patient-provider interaction for the medical decision making as documented below. Consent was obtained to complete today's distance health visit. I have communicated my name and active licensure. The patient's identity and physical location were verified at the time of this visit. Either the patient or their legal veterans employment representative has been informed of the risks and benefits of -- and alternatives to -- treatment through a remote evaluation and consents to proceed with the evaluation remotely. HPI: Mariia Coughlin a 37 year old female for presents for medically supervised weight loss treatment of her obesity related co morbidities. This individual presents for month 6 of 6 required visits completed as a virtual telephone encounter Mariia Coughlin weight calculation has remained stable. Denies recent illnesses, hospitalizations, ED visits. Denies acid reflux symptoms, abdominal pain, and changes to stool pattern. HISTORY REVIEWED (electronic chart updated): - medical history - medications - allergies PAST MEDICAL HISTORY Diagnosis Date HTN (hypertension) Mixed hyperlipidemia NEGATIVE MEDICAL HISTORY Social: Social History Tobacco Use Smoking status: Former Packs/day: 0.50 Years: 15.00 Pack years: 7.50 Types: Cigarettes Quit date: 06/2022 Years since quittin.7 Smokeless tobacco: Never Vaping Use Vaping Use: Never used Substance Use Topics Alcohol use: Never Comment: OCCASIONALLY, BUT NOT WHILE Drug use: No Medications: Current Outpatient Medications Medication Sig Multivitamin capsule Take 1 capsule by mouth once daily. rosuvastatin (CRESTOR) 5 mg tablet Take 5 mg by mouth once daily. hydroCHLOROthiazide (HYDRODIURIL, ESIDRIX) 12.5 mg tablet Take 12.5 mg by mouth once daily. No current facility-administered medications for this visit. REVIEW OF SYSTEMS General: No fatigue or fevers HEENT: Negative for frequent or significant headaches, No changes in hearing or vision, no nose bleeds or other nasal problems PAP Therapy: Not needed. GI:No nausea, vomiting, or diarrhea and No heartburn or reflux symptoms Muskuloskeletal: Negative for joint pain or swelling, back pain or muscle pain Skin: Negative for lesions, rash, and itching Psych: Negative for sleep disturbance, mood disorder and recent psychosocial stressors PHYSICAL EXAMINATION Wt 130.2 kg (287 lb) BMI 46.32 kg/m2 Ht 167.6 cm (5' 6 ) BMI 46.32 kg/m2 GENERAL APPEARANCE: Pleasant, interacts appropriately and in no apparent distress. Appropriately groomed, happy, smiling, and interactive SKIN: Skin of normal texture, temperature without rashes/lesions/ulcerations. LUNGS: unlabored on room air negative findings: normal respiratory rate no cough NEURO/PSYCH: Oriented to person, place, time; appropriate insight and judgement. Appropriate affect. Diagnostic Tests Reviewed for Today's Visit Most recent lab and imaging results The plan of treatment for Mariia Coughlin is Further Work-up: EGD: defer to UGI Upper GI: WNL RUQ US: WNL Sleep Study: NA per pulmonology CXR:WNL EKG: per cardiac clearance H Pylori: NA, sleeve gastrectomy Labs: completed and reviewed Nicotine: negative Tox screen: negative Antiplatelet/anticoagulants: No Immunosuppressive therapy: No Estrogen therapy: No Evaluations Psychology: completed Nutrition: completed Education class: completed Clearances: Cardiac (cleared OV 03/23), and Pulmonary (cleared phone call 02/17), PCP needed Risk Calculator: VTE Risk: OR time <3hrs = 0.16% OR time >3hrs = 0.25% Post-op Medications: Extended Lovenox: not needed Actigall: NA, known cholelithiasis H2 marycarmen/PPI: will require ASSESSMENT/PLAN: 1. Class 3 severe obesity due to excess calories with serious comorbidity and body mass index (BMI) of 45.0 to 49.9 in adult (HCC) - ICD9: 278.01, V85.42, ICD10: E66.01, Z68.42 (primary diagnosis) Weight decreasing - Behavioral intervention and - Medical nutrition therapy with dietitian - Nutrition Counseling Practice these: - Eat 3 meals daily--can use approved/recommended protein shake as 1 meal replacement (should be <200 calories, 20-30g protein, <5g added sugar) - Keep a food journal 5-7x/week (consider [employer] or [employer]) and demonstrate meeting protein goal (60-90g protein for females, 70-105g protein for males)- Lean meats, fish, low fat dairy - cottage cheese, [place] yogurt, light yogurt, cheese, ricotta cheese, nuts, peanut butter, beans/legumes. Eat protein first at all meals. and 64oz of caffeine-free, carbonation-free fluids at least 5 days per week - engage in for (more content not included)... [facility] 03-23-2023 History of Present illness Narrative I agree with the below assessment and plan of care Serenity Kumar, ADRI.[facility] FOLLOW UP NOTE DISTANCE HEALTH VISIT This Team Access Model visit is a virtual encounter. It required patient-provider interaction for the medical decision making as documented below. Consent was obtained to complete today's distance health visit. I have communicated my name and active licensure. The patient's identity and physical location were verified at the time of this visit. Either the patient or their legal veterans employment representative has been informed of the risks and benefits of -- and alternatives to -- treatment through a remote evaluation and consents to proceed with the evaluation remotely. HPI: Mariia Coughlin a 37 year old female for presents for medically supervised weight loss treatment of her obesity related co morbidities. This individual presents for month 6 of 6 required visits completed as a virtual telephone encounter Mariia Coughlin weight calculation has remained stable. Denies recent illnesses, hospitalizations, ED visits. Denies acid reflux symptoms, abdominal pain, and changes to stool pattern. HISTORY REVIEWED (electronic chart updated): - medical history - medications - allergies PAST MEDICAL HISTORY Diagnosis Date HTN (hypertension) Mixed hyperlipidemia NEGATIVE MEDICAL HISTORY Social: Social History Tobacco Use Smoking status: Former Packs/day: 0.50 Years: 15.00 Pack years: 7.50 Types: Cigarettes Quit date: 06/2022 Years since quittin.7 Smokeless tobacco: Never Vaping Use Vaping Use: Never used Substance Use Topics Alcohol use: Never Comment: OCCASIONALLY, BUT NOT WHILE Drug use: No Medications: Current Outpatient Medications Medication Sig Multivitamin capsule Take 1 capsule by mouth once daily. rosuvastatin (CRESTOR) 5 mg tablet Take 5 mg by mouth once daily. hydroCHLOROthiazide (HYDRODIURIL, ESIDRIX) 12.5 mg tablet Take 12.5 mg by mouth once daily. No current facility-administered medications for this visit. REVIEW OF SYSTEMS General: No fatigue or fevers HEENT: Negative for frequent or significant headaches, No changes in hearing or vision, no nose bleeds or other nasal problems PAP Therapy: Not needed. GI:No nausea, vomiting, or diarrhea and No heartburn or reflux symptoms Muskuloskeletal: Negative for joint pain or swelling, back pain or muscle pain Skin: Negative for lesions, rash, and itching Psych: Negative for sleep disturbance, mood disorder and recent psychosocial stressors PHYSICAL EXAMINATION Wt 130.2 kg (287 lb) BMI 46.32 kg/m2 Ht 167.6 cm (5' 6 ) BMI 46.32 kg/m2 GENERAL APPEARANCE: Pleasant, interacts appropriately and in no apparent distress. Appropriately groomed, happy, smiling, and interactive SKIN: Skin of normal texture, temperature without rashes/lesions/ulcerations. LUNGS: unlabored on room air negative findings: normal respiratory rate no cough NEURO/PSYCH: Oriented to person, place, time; appropriate insight and judgement. Appropriate affect. Diagnostic Tests Reviewed for Today's Visit Most recent lab and imaging results The plan of treatment for Mariia Coughlin is Further Work-up: EGD: defer to UGI Upper GI: WNL RUQ US: WNL Sleep Study: NA per pulmonology CXR:WNL EKG: per cardiac clearance H Pylori: NA, sleeve gastrectomy Labs: completed and reviewed Nicotine: negative Tox screen: negative Antiplatelet/anticoagulants: No Immunosuppressive therapy: No Estrogen therapy: No Evaluations Psychology: completed Nutrition: completed Education class: completed Clearances: Cardiac (cleared OV 03/23), and Pulmonary (cleared phone call 02/17), PCP needed Risk Calculator: VTE Risk: OR time <3hrs = 0.16% OR time >3hrs = 0.25% Post-op Medications: Extended Lovenox: not needed Actigall: NA, known cholelithiasis H2 marycarmen/PPI: will require ASSESSMENT/PLAN: 1. Class 3 severe obesity due to excess calories with serious comorbidity and body mass index (BMI) of 45.0 to 49.9 in adult ([facility]) - ICD9: 278.01, V85.42, ICD10: E66.01, Z68.42 (primary diagnosis) Weight decreasing - Behavioral intervention and - Medical nutrition therapy with dietitian - Nutrition Counseling Practice these: - Eat 3 meals daily--can use approved/recommended protein shake as 1 meal replacement (should be <200 calories, 20-30g protein, <5g added sugar) - Keep a food journal 5-7x/week (consider [employer] or [employer] dianna) and demonstrate meeting protein goal (60-90g protein for females, 70-105g protein for males)- Lean meats, fish, low fat dairy - cottage cheese, Libyan yogurt, light yogurt, cheese, ricotta cheese, nuts, peanut butter, beans/legumes. Eat protein first at all meals. and 64oz of caffeine-free, carbonation-free fluids at least 5 days per week - engage in formal, planned exercise 5x/week for 30 minutes of cardiovascular activity OR 150+ minutes of cardiovascular activity per week - eliminate all caffeine, carbonation, alcohol and sugar-containing beverages from diet --consider sugar-free drink mixes, water, decaf coffee and tea - Separate eating and drinking by 30 minutes - Chew your food 20-30x per bite - Sip beverages slowly--no guzzling or gulping 2. Hypertension, unspecified type - ICD9: 401.9, ICD10: I10 - Cleared by cardiology 3. NAFLD (nonalcoholic fatty liver disease) - ICD9: 571.8, ICD10: K76.0 - Continue efforts towards weight loss All testing and clearances are complete. She can come back to consent with surgeon. Medical Decision Making: Problems: Moderate: 2+ stable chronic illnesses Data: Assessment requiring an independent historian(s) Medical Decision Making Level: 3 - Low Mukund Morgan APRN.CNP Total time in direct patient contact = 15 min. Greater than 50% of the time was spent in counseling and/or coordination of care. This note was generated using voice recognition technology and may contain grammatical errors. Mukund Morgan APRN.CNP documented in this encounter [facility] 03-23-2023 Note HNO ID: [id number] Author: Hien Marinelli RD Service: ? Author Type: Registered Dietitian Type: Progress Notes Filed: 03/23/2023 1:44 PM Note Text: Mariia Coughlin--Visit conducted via [employer] (audio and visual) d/t COVID 19 Education Class: Patient will receive instruction regarding healthy food choices and eating behaviors identified as optimal when preparing for surgery, losing weight after surgery, and maintaining weight loss long-term. Patient will also receive instruction regarding the Bariatric Full Liquid diet following surgery and optimal post-operative high-protein supplement choices. Education class to be completed prior to surgery. Behaviors Accomplished: Visit # 6 Date: 03/23/2023 Weight: 130.2 kg (287 lb), reported 1 lb weight loss since in office encounter. Behaviors that helped/hindered weight loss: consistency Keeping journal daily Eating 3 meals/one snack Choose healthy foods Daily multivitamin No high fat/fast foods D/c'd caffeinated, carbonated beverages 24 hour diet recall Breakfast: Libyan yogurt---20 grams, 2 eggs Lunch: protein shake Dinner: street taco/cheese Snacks: n/a Fluids (liquid intake-oz): yesterday: 72 oz , 2 days ago: 64 oz , 3 days ago: 64 oz, 4 days ago: 56 oz, 5 days ago: 64 oz, 6 days ago:64 oz, 7 days ago: 74 oz Alcohol/Caffeine/Sugar/Carbonation Beverages in Diet: none Protein (grams/day): yesterday: 85 grams, 2 days ago: 87 grams, 3 days ago: 60 grams, 4 days ago: 60 grams, 5 days ago: 55 grams, 6 days ago: 111 grams, 7 days ago: 83 grams Exercise: Walking/weighted hoola hoop--150+ minutes/week Written information provided and reviewed: Vitamin/mineral supplement: needs 45 mg iron/day post op Preop patient currently in month #6 of supervised diet and exercise. Over the last month, she has been able to consistently remain adherent to preop nutrition requirements. Also, she has been able to increase her exercise as noted above-now meeting exercise recommendations. Therefore, nutrition clearance was obtained today. Also reviewed consent diet information-very low calorie diet, enhanced recovery after surgery protocol and postop vitamin replacement therapy (needs 45 mg of iron per day postop). The patient meets NIH guidelines for weight loss surgery and has been thoroughly evaluated and educated on good dietary practices. Patient is capable of following these guidelines pre-and post-surgically. From nutrition standpoint, the patient is cleared for weight loss surgery. No additional visits with nutrition are required at this time; however, pt is welcome to return as needed/desired before or after surgery. *All requirements have been met. Additional requirements may arise in course of treatment. *THIS PATIENT RECEIVED INSTRUCTIONS FOR VLCD, ERAS, AND DISCHARGE DIET INFORMATION (PHASE I/II DIET) AND POST-OP VITAMIN SCHEDULE WITH PLAN TO CONSENT W/ SURGEON AT FUTURE APPOINTMENT-WILL RECEIVE ENSURE CLEAR BEVERAGES AT CONSENT APPOINTMENT -VLCD, ERAS, Phase I/II diet, post-op vitamin schedule--via [employer] Plan: follow up post op Total time in direct patient contact = 20 min. Greater than 50% of the time was spent in counseling and/or coordination of care. Hien Marinelli RD This note was generated using voice recognition technology and may contain grammatical errors. [facility] 03-23-2023 Note HNO ID: [id number] Author: Harrison Graves MD Service: ? Author Type: Physician Type: Progress Notes Filed: 03/23/2023 10:26 AM Note Text: PRIMARY CARE PHYSICIAN: No primary care provider on file. REFERRING PHYSICIAN: PCP CHIEF COMPLAINT: Patient presents with: Cardiology Follow Up : Cardiac clearance HISTORY OF PRESENT ILLNESS: Ms. Coughlin is a 37 year old female who presents today for preop cardiac evaluation for bariatric surgery. She denies chest pain, shortness of breath, orthopnea, cough, edema, palpitations, PND, lightheadedness or syncope. Exercise capacity is more than 4 METS. Walks 30 min 5 x week. Can climb 2 flights of stairs No major surgeries done in the past No clinical risk factors including CAD, CHF, CKD, diabetes or CVA PAST CARDIAC HISTORY: Hypertension Hyperlipidemia Former smoker PAST MEDICAL HISTORY Diagnosis Date HTN (hypertension) Mixed hyperlipidemia NEGATIVE MEDICAL HISTORY PAST SURGICAL HISTORY Procedure Laterality Date CYST/MOLE REMOVAL wrist cyst removal ESSURE DEVICE 2011 NONE SOCIAL HISTORY Social History Tobacco Use Smoking status: Former Packs/day: 0.50 Years: 15.00 Pack years: 7.50 Types: Cigarettes Quit date: 06/2022 Years since quittin.7 Smokeless tobacco: Never Vaping Use Vaping Use: Never used Substance Use Topics Alcohol use: Never Comment: OCCASIONALLY, BUT NOT WHILE Drug use: No FAMILY HISTORY Problem Relation Age of Onset Hypertension Mother Lipids Mother Hypertension Father Lipids Father Arthritis Maternal Grandmother Diabetes Maternal Grandfather Prostate Cancer Paternal Grandfather ALLERGIES: ALLERGIES No Known Allergies MEDICATIONS: Multivitamin capsule Take 1 capsule by mouth once daily. rosuvastatin (CRESTOR) 5 mg tablet Take 5 mg by mouth once daily. hydroCHLOROthiazide (HYDRODIURIL, ESIDRIX) 12.5 mg tablet Take 12.5 mg by mouth once daily. REVIEW OF SYSTEMS: GENERAL: Negative for: Weight loss or gain, Fever or Chills, Weakness and Sleep difficulties and Fatigue. HEENT: Negative for: Headache, Impaired Vision, Glasses, Hearing Impairment, Ringing in Ears, Nosebleeds, Poor dental care, Bleeding Gums, Dentures NECK: Negative for: Swelling, Pain, Stiffness RESPIRATORY: Negative for: Cough, Blood in Sputum, Shortness of breath, Wheezing, Apnea CARDIOVASCULAR: As noted in HPI GASTROINTESTINAL: Negative for: Trouble swallowing, Heartburn, Change in bowel habits, Blood in stool, Dark black stools MUSCULOSKELETAL: Negative for: Muscle or joint pain, Stiffness , Joint swelling NEUROLOGIC/PSYCHIATRIC: Negative for: Weakness, Paralysis, Numbness, Tingling, Tremor, Nervousness, Depressed mood, Memory loss SKIN: Negative for: Rashes, Itching HEMATOLOGICAL/LYMPHATIC: Negative for: Easy bruising , Easy bleeding ENDOCRINE: Negative for: Heat or cold intolerance, Excessive sweating, Frequent urination, Frequent thirst PHYSICAL EXAMINATION: BP 132/76 (BP Site: Left Arm, BP Position: Sitting, BP Cuff Size: Large Adult) Pulse 76 Ht 5' 6 (1.676 m) Wt 287 lb (130.2 kg) LMP 11/28/2011 SpO2 100% BMI 46.32 kg/m? General: Well appearing, in no acute distress, obese. Skin: No clubbing, no cyanosis. Eyes: No conjunctival pallor or scleral icterus Oropharynx: Mucous membranes are moist Neck: No jugular venous distention, no carotid bruits, carotids have a normal upstroke, no palpable thyromegaly. Lungs: Clear to auscultation bilaterally, no wheezing or rhonchi. Heart: Regular rhythm, PMI not displaced, S1, S2 normal, no S3, no S4, no heaves, no rub and no murmur. Abdomen: Soft, nontender, bowel sounds normal, no palpable organomegaly, no bruits. Extremities: No peripheral edema . Grade 2/4 distal pulses bilaterally. Neuro: Oriented to person, place and time, alert, cooperative, gait coordinated. CARDIOVASCULAR MEDICINE TESTING: Electrocardiogram: 03/23/2023: Normal sinus rhythm, normal ECG I have personally reviewed the Electrocardiogram. Component Latest Ref Rng AND Units 12/20/2022 02/17/2023 WBC 3.70 - 11.00 k/uL 6.40 RBC 3.90 - 5.20 m/uL 4.25 Hemoglobin 11.5 - 15.5 g/dL 13.1 Hematocrit 36.0 - 46.0 % 39.5 MCV 80.0 - 100.0 fL 92.9 MCH 26.0 - 34.0 pg 30.8 MCHC 30.5 - 36.0 g/dL 33.2 RDW-CV 11.5 - 15.0 % 11.9 Platelet Count 150 - 400 k/uL 292 MPV 9.0 - 12.7 fL 10.3 Neut% % 65.4 Abs Neut (ANC) 1.45 - 7.50 k/uL 4.19 Lymph% % 23.8 Abs Lymph 1.00 - 4.00 k/uL 1.52 [place]% % 6.3 Abs [place] <0.87 k/uL 0.40 Eosin% % 3.4 Abs Eosin <0.46 k/uL 0.22 Baso% % 0.8 Abs Baso <0.11 k/uL 0.05 Immature Gran % % 0.3 IMMATURE GRANS (ABS) <0.10 k/uL <0.03 NRBC /100 WBC 0.0 Absolute nRBC <0.01 k/uL <0.01 DTYPE Auto Glucose 74 - 99 mg/dL 99 BUN 7 - 21 mg/dL 12 Creatinine 0.58 - 0.96 mg/dL 0.74 Sodium 136 - 144 mmol/L 138 Potassium 3.7 - 5.1 mmol/L 4.1 Chloride 97 - 105 mmol/L 102 CO2 22 - 30 mmol/L 24 Anion Gap (more content not included)... [facility] 03-23-2023 History of Present illness Narrative Mariia Coughlin--Visit conducted via [employer] (audio and visual) d/t COVID 19 Education Class: Patient will receive instruction regarding healthy food choices and eating behaviors identified as optimal when preparing for surgery, losing weight after surgery, and maintaining weight loss long-term. Patient will also receive instruction regarding the Bariatric Full Liquid diet following surgery and optimal post-operative high-protein supplement choices. Education class to be completed prior to surgery. Behaviors Accomplished: Visit # 6 Date: 03/23/2023 Weight: 130.2 kg (287 lb), reported 1 lb weight loss since in office encounter. Behaviors that helped/hindered weight loss: consistency Keeping journal daily Eating 3 meals/one snack Choose healthy foods Daily multivitamin No high fat/fast foods D/c'd caffeinated, carbonated beverages 24 hour diet recall Breakfast: [place]yan yogurt---20 grams, 2 eggs Lunch: protein shake Dinner: street taco/cheese Snacks: n/a Fluids (liquid intake-oz): yesterday: 72 oz , 2 days ago: 64 oz , 3 days ago: 64 oz, 4 days ago: 56 oz, 5 days ago: 64 oz, 6 days ago:64 oz, 7 days ago: 74 oz Alcohol/Caffeine/Sugar/Carbonation Beverages in Diet: none Protein (grams/day): yesterday: 85 grams, 2 days ago: 87 grams, 3 days ago: 60 grams, 4 days ago: 60 grams, 5 days ago: 55 grams, 6 days ago: 111 grams, 7 days ago: 83 grams Exercise: Walking/weighted hoola hoop--150+ minutes/week Written information provided and reviewed: Vitamin/mineral supplement: needs 45 mg iron/day post op Preop patient currently in month #6 of supervised diet and exercise. Over the last month, she has been able to consistently remain adherent to preop nutrition requirements. Also, she has been able to increase her exercise as noted above-now meeting exercise recommendations. Therefore, nutrition clearance was obtained today. Also reviewed consent diet information-very low calorie diet, enhanced recovery after surgery protocol and postop vitamin replacement therapy (needs 45 mg of iron per day postop). The patient meets NIH guidelines for weight loss surgery and has been thoroughly evaluated and educated on good dietary practices. Patient is capable of following these guidelines pre-and post-surgically. From nutrition standpoint, the patient is cleared for weight loss surgery. No additional visits with nutrition are required at this time; however, pt is welcome to return as needed/desired before or after surgery. *All requirements have been met. Additional requirements may arise in course of treatment. *THIS PATIENT RECEIVED INSTRUCTIONS FOR VLCD, ERAS, AND DISCHARGE DIET INFORMATION (PHASE I/II DIET) AND POST-OP VITAMIN SCHEDULE WITH PLAN TO CONSENT W/ SURGEON AT FUTURE APPOINTMENT-WILL RECEIVE ENSURE CLEAR BEVERAGES AT CONSENT APPOINTMENT -VLCD, ERAS, Phase I/II diet, post-op vitamin schedule--via [employer] Plan: follow up post op Total time in direct patient contact = 20 min. Greater than 50% of the time was spent in counseling and/or coordination of care. Hien Marinelli RD This note was generated using voice recognition technology and may contain grammatical errors. documented in this encounter [facility] 03-23-2023 History of Present illness Narrative PRIMARY CARE PHYSICIAN: No primary care provider on file. REFERRING PHYSICIAN: PCP CHIEF COMPLAINT: Patient presents with: Cardiology Follow Up : Cardiac clearance HISTORY OF PRESENT ILLNESS: Ms. Coughlin is a 37 year old female who presents today for preop cardiac evaluation for bariatric surgery. She denies chest pain, shortness of breath, orthopnea, cough, edema, palpitations, PND, lightheadedness or syncope. Exercise capacity is more than 4 METS. Walks 30 min 5 x week. Can climb 2 flights of stairs No major surgeries done in the past No clinical risk factors including CAD, CHF, CKD, diabetes or CVA PAST CARDIAC HISTORY: Hypertension Hyperlipidemia Former smoker PAST MEDICAL HISTORY Diagnosis Date HTN (hypertension) Mixed hyperlipidemia NEGATIVE MEDICAL HISTORY PAST SURGICAL HISTORY Procedure Laterality Date CYST/MOLE REMOVAL wrist cyst removal ESSURE DEVICE 2011 NONE SOCIAL HISTORY Social History Tobacco Use Smoking status: Former Packs/day: 0.50 Years: 15.00 Pack years: 7.50 Types: Cigarettes Quit date: 06/2022 Years since quittin.7 Smokeless tobacco: Never Vaping Use Vaping Use: Never used Substance Use Topics Alcohol use: Never Comment: OCCASIONALLY, BUT NOT WHILE Drug use: No FAMILY HISTORY Problem Relation Age of Onset Hypertension Mother Lipids Mother Hypertension Father Lipids Father Arthritis Maternal Grandmother Diabetes Maternal Grandfather Prostate Cancer Paternal Grandfather ALLERGIES: ALLERGIES No Known Allergies MEDICATIONS: Multivitamin capsule Take 1 capsule by mouth once daily. rosuvastatin (CRESTOR) 5 mg tablet Take 5 mg by mouth once daily. hydroCHLOROthiazide (HYDRODIURIL, ESIDRIX) 12.5 mg tablet Take 12.5 mg by mouth once daily. REVIEW OF SYSTEMS: GENERAL: Negative for: Weight loss or gain, Fever or Chills, Weakness and Sleep difficulties and Fatigue. HEENT: Negative for: Headache, Impaired Vision, Glasses, Hearing Impairment, Ringing in Ears, Nosebleeds, Poor dental care, Bleeding Gums, Dentures NECK: Negative for: Swelling, Pain, Stiffness RESPIRATORY: Negative for: Cough, Blood in Sputum, Shortness of breath, Wheezing, Apnea CARDIOVASCULAR: As noted in HPI GASTROINTESTINAL: Negative for: Trouble swallowing, Heartburn, Change in bowel habits, Blood in stool, Dark black stools MUSCULOSKELETAL: Negative for: Muscle or joint pain, Stiffness , Joint swelling NEUROLOGIC/PSYCHIATRIC: Negative for: Weakness, Paralysis, Numbness, Tingling, Tremor, Nervousness, Depressed mood, Memory loss SKIN: Negative for: Rashes, Itching HEMATOLOGICAL/LYMPHATIC: Negative for: Easy bruising , Easy bleeding ENDOCRINE: Negative for: Heat or cold intolerance, Excessive sweating, Frequent urination, Frequent thirst PHYSICAL EXAMINATION: BP 132/76 (BP Site: Left Arm, BP Position: Sitting, BP Cuff Size: Large Adult) Pulse 76 Ht 5' 6 (1.676 m) Wt 287 lb (130.2 kg) LMP 11/28/2011 SpO2 100% BMI 46.32 kg/m General: Well appearing, in no acute distress, obese. Skin: No clubbing, no cyanosis. Eyes: No conjunctival pallor or scleral icterus Oropharynx: Mucous membranes are moist Neck: No jugular venous distention, no carotid bruits, carotids have a normal upstroke, no palpable thyromegaly. Lungs: Clear to auscultation bilaterally, no wheezing or rhonchi. Heart: Regular rhythm, PMI not displaced, S1, S2 normal, no S3, no S4, no heaves, no rub and no murmur. Abdomen: Soft, nontender, bowel sounds normal, no palpable organomegaly, no bruits. Extremities: No peripheral edema . Grade 2/4 distal pulses bilaterally. Neuro: Oriented to person, place and time, alert, cooperative, gait coordinated. CARDIOVASCULAR MEDICINE TESTING: Electrocardiogram: 03/23/2023: Normal sinus rhythm, normal ECG I have personally reviewed the Electrocardiogram. Component Latest Ref Rng & Units 12/20/2022 02/17/2023 WBC 3.70 - 11.00 k/uL 6.40 RBC 3.90 - 5.20 m/uL 4.25 Hemoglobin 11.5 - 15.5 g/dL 13.1 Hematocrit 36.0 - 46.0 % 39.5 MCV 80.0 - 100.0 fL 92.9 MCH 26.0 - 34.0 pg 30.8 MCHC 30.5 - 36.0 g/dL 33.2 RDW-CV 11.5 - 15.0 % 11.9 Platelet Count 150 - 400 k/uL 292 MPV 9.0 - 12.7 fL 10.3 Neut% % 65.4 Abs Neut (ANC) 1.45 - 7.50 k/uL 4.19 Lymph% % 23.8 Abs Lymph 1.00 - 4.00 k/uL 1.52 [place]% % 6.3 Abs [place] <0.87 k/uL 0.40 Eosin% % 3.4 Abs Eosin <0.46 k/uL 0.22 Baso% % 0.8 Abs Baso <0.11 k/uL 0.05 Immature Gran % % 0.3 IMMATURE GRANS (ABS) <0.10 k/uL <0.03 NRBC /100 WBC 0.0 Absolute nRBC <0.01 k/uL <0.01 DTYPE Auto Glucose 74 - 99 mg/dL 99 BUN 7 - 21 mg/dL 12 Creatinine 0.58 - 0.96 mg/dL 0.74 Sodium 136 - 144 mmol/L 138 Potassium 3.7 - 5.1 mmol/L 4.1 Chloride 97 - 105 mmol/L 102 CO2 22 - 30 mmol/L 24 Anion Gap 9 - 18 mmol/L 12 Calcium 8.5 - 10.2 mg/dL 9.1 eGFR >=60 mL/min/1.73m 106 Cholesterol, Total <200 mg/dL 151 Triglyceride <150 mg/dL 72 HDL Cholesterol >39 mg/dL 49 Non HDL Cholesterol <130 mg/dL 102 Fasting Time hrs 13 VLDL Cholesterol <30 mg/dL 14 TC:HDL Ratio <5.10 3.08 LDL Cholesterol <100 mg/dL 88 LDL:HDL Ratio <2.54 1.80 Hemoglobin A1C 4.3 - 5.6 % 4.9 Estimated Average Glucose mg/dL 94 TSH 0.270 - 4.200 mIU/L 1.770 Cholesterol, Total (mg/dL) Date Value 02/17/2023 151 HDL Cholesterol (mg/dL) Date Value 02/17/2023 49 LDL Cholesterol (mg/dL) Date Value 02/17/2023 88 Triglyceride (mg/dL) Date Value 02/17/2023 72 IMPRESSION: Ms. Coughlin is a 37 year old female with the following cardiac issues. PLAN AND RECOMMENDATIONS: 1. Pre-operative cardiovascular examination - ICD9: V72.81, ICD10: Z01.810 (primary diagnosis) Patient will be undergoing bariatric surgery. She has lost 9 pounds with diet and exercise Exercise capacity is more than 4 METS No known clinical risk factors No major surgeries in the past Asymptomatic from cardiac standpoint Normal EKG No further cardiac testing needed I will consider her low cardiac risk for intermediate risk bariatric surgery Cardiac clearance letter done - ECG B/O W INTERP (MED OFFICE) 2. Primary hypertension - ICD9: 401.9, ICD10: I10 - good control - Continue current medication(s) - Recommended regular aerobic exercise. - Recommend home blood pressure monitoring, to bring results in on next visit - Goal of BP <130/80 3. Mixed hyperlipidemia - ICD9: 272.2, ICD10: E78.2 - good control - Continue current medication. 4. Morbid obesity with BMI of 45.0-49.9, adult (HCC) - ICD9: 278.01, V85.42, ICD10: E66.01, Z68.42 Discussed lifestyle changes Follow-up as needed postoperatively Harrison Graves MD Please note: This note has been produced using speech recognition software and may contain errors related to that system including grammar, punctuation, spelling, gender and words and phrases that may be inappropriate. documented in this encounter [facility] 03-23-2023 Nurse Note Patient denies any cardiac complaints or symptoms. Carleen Kothari LPN documented in this encounter [facility] 03-15-2023 Miscellaneous Notes ----- Message from Ciro Che, PhD sent at 03/15/2023 9:05 AM EDT ----- Good morning Serenity, The following pertains to the aforementioned patient: Based on the information gathered through the interview process, she appears to be psychologically stable at this time with no overt evidence of psychologic contraindications for bariatric surgery. The patient does not appear to have a major uncontrolled psychiatric disorder and appears to be able to comply with the recommended medical/surgical preoperative and postoperative treatment plans. Feel free to reach out with any questions/concerns. Ciro Kumar documented in this encounter [facility] 03-11-2023 Note HNO ID: [id number] Author: Ciro Che, PhD Service: ? Author Type: Psychologist Type: Progress Notes Filed: 03/15/2023 9:05 AM Note Text: BARIATRIC SURGERY BEHAVIORAL HEALTH EVALUATION DATE OF SERVICE: March 11, 2023 TIME OF SERVICE: [id number] CPT CODE: 96178 Psychiatric diagnostic evaluation BILLING CODE: Ciro Che, PhD CHIEF COMPLAINT: Pre-surgical psychological evaluation DATE OF FIRST SERVICE THIS CYCLE: February 04, 2023 SESSION #: 1 The patient signed the Informed Consent for Psychological Evaluation AND Care Form, and the [facility] insurance benefits, fees for service, emergency procedures, and the limits of confidentiality that may pertain with any given case were discussed with the patient. Ms. Coughlin was given a copy of the consent form. IDENTIFYING INFORMATION: Ms. Mariia Coughlin is a 37 year old female. She was referred by Surgery. Ms. Coughlin is seeking gastric sleeve surgery for morbid obesity. Her surgeon is Dr. Talavera. COLLATERAL PARTIES PRESENT: none. MOTIVATION FOR SURGERY / UNDERSTANDING OF PROCEDURE / EXPECTATIONS: Ms. Coughlin notes she is motivated for surgery by medical problems, hypertension, and improve quality of life. The patient has a good understanding of the surgery, risks, and benefits. She has talked with other people who have undergone the procedure. Specific areas of understanding that should be addressed include n/a. The patient has not attended a weight loss surgery support group. The patient expects to lose 149 lbs. following surgery over 12-18 months. Other expectations include improvement in health and increased self - worth. Educated patient regarding expected weight loss after surgical procedure and timeline of weight loss/surgery recovery. CAPACITY TO CONSENT: Ms. Coughlin evidences the following concerns regarding capacity to consent: none noted. MEDICAL PROBLEMS Hypertension High cholesterol Denied seizures, head injuries PAST SURGICAL HISTORY PAST SURGICAL HISTORY Procedure Laterality Date CYST/MOLE REMOVAL wrist cyst removal ESSURE DEVICE 2011 NONE Past surgeries? Yes History of psychological complications post-surgery? No MEDICATIONS Hydrochlorothiazide Crestor Multivitamin ALLERGIES ALLERGIES No Known Allergies EATING/WEIGHT HISTORY: Ms. Coughlin was average weight as a child up until sixth grade when she started menstruating. She said she began steadily gaining weight at that point. She reportedly gained until around age 16 when she lost 50 pounds from a stressor (she was staying with her uncle to take care of him as he had major medical issues and she said it was hard to eat during this time). Her weight at age 16 was 200 lbs. The patient reports the following factors as contributing to weight gain: inactivity, portion sizes, , poor eating habits, and genetic predisposition . The patient reports a family history of obesity (mother and father). Current Weight: 289 Current height: 5'7 BMI: 45.3 The patient has tried weight loss strategies in the past including Diet pills, Exercise/increased activity, Keto, Weight watchers, and a weight loss program through her chiropractor that involved a keto diet and supplements. The most weight the patient has lost is 45 lbs. using program with her chiropractor. The patient denies a history of laxative use. The patient denies a history of vomiting to lose weight. The patient denies a history of eating disorder(s). She has not had treatment for eating disorders in the past. Patient reports eating three meals/day, with one snack. She reported having three meals on approximately five days. Breakfast: protein shake Lunch: spaghetti squash, chicken breast, salad Dinner: fish, lean meats (turkey), a vegetable, healthier starches (e.g. sweet potato) Is not consistently keeping food journal. Keeping intermittently- missing whole days and meals on some days. Eating for coping/emotional eating: Does not report a significant history of emotional eating; denies this currently. The patient notes decaffeinated coffee/tea use of three cups/day. Soda pop usage is none per day. The patient shows graze eating behaviors: Yes. Endorsed some snacking about four days before her period starts. Has been choosing healthier snacks since starting the program (e.g. celery sticks and peanut butter). Does patient note loss of control with grazing? No. Grazing occurs about one day/week if you average out the days prior to her period. Exercise Uses a [employer] hoop for 30 minutes three days/week Uses elliptical twice/week for 30 minutes Second session update on diet and exercise: - Journaling is still inconsistent but food choices are generally consistent with program recommendations - Now walking for one hour on Tuesdays and during her son's baseball practice- replaces the elliptical BINGE EATING ASSE (more content not included)... [facility] 02-22-2023 Note HNO ID: [id number] Author: Hien Marinelli RD Service: ? Author Type: Registered Dietitian Type: Progress Notes Filed: 02/22/2023 3:11 PM Note Text: Mariia Coughlin--Visit conducted via [employer] (audio and visual) d/t COVID 19 Education Class: Patient will receive instruction regarding healthy food choices and eating behaviors identified as optimal when preparing for surgery, losing weight after surgery, and maintaining weight loss long-term. Patient will also receive instruction regarding the Bariatric Full Liquid diet following surgery and optimal post-operative high-protein supplement choices. Education class to be completed prior to surgery. Behaviors Accomplished: Visit # 5 Date: 02/22/2023 Weight: 130.6 kg (288 lb), 8 lb weight loss since in office encounter. Behaviors that helped/hindered weight loss: Keeping journal daily Eating 3 meals/one snack Choose healthy foods Daily multivitamin Drink between meals Sip beverages slowly Eat slowly,chew well No high fat/fast foods D/c'd caffeinated, carbonated beverages 24 hour diet recall Breakfast: protein shake Lunch: grilled chicken/red pepper Dinner: hamburger on salad Snacks: celery/peanut butter Fluids (liquid intake-oz): yesterday: 64 oz , 2 days ago: 80 oz , 3 days ago: 64 oz, 4 days ago: 64 oz, 5 days ago: 56 oz, 6 days ago:64 oz, 7 days ago: 72 oz Alcohol/Caffeine/Sugar/Carbonation Beverages in Diet: no alcohol, decaf coffee only Protein (grams/day): yesterday: 70 grams, 2 days ago: 91 grams, 3 days ago: 81 grams, 4 days ago: 80 grams, 5 days ago: 105 grams, 6 days ago: 41 grams (forgot to log dinner), 7 days ago: 109 grams Exercise: 15 minutes---2 days/week, 3 days/week---30 minutes each. Averaging 90 minutes/week. Written information provided and reviewed: As noted Preop patient currently in month #5 supervised diet and exercise. She presents with a reported 8 pound weight loss since in office encounter. Continues to do well with adhering to most preop nutrition requirements. Over the last month, she has been able to completely eliminate alcohol from her diet, and has also been able to increase her exercise to as noted above. She is averaging approximately 90 minutes of physical activity per week, discussed need to increase to 150 minutes/week to obtain nutrition clearance. She continues to do well with maintaining a food journal-occasionally exceeding protein goal, counseled patient on importance of limiting daily protein intake to 90 g/day, most days per week. Goals eat 3 meals daily - protein source at each meal endorse in formal exercise 5-7 days per week for 30 min (per sesion) or 150 min of activity/week journal daily and bring to all appointments limit protein portions to 3 oz/meal The patient meets NIH guidelines for weight loss surgery and has been thoroughly evaluated and educated on good dietary practices. Patient is capable of following these guidelines pre-and post-surgically. From nutrition standpoint, the has partially met nutrition clearance and will need to increase exercise as tolerated to 5 days/week or 150 minutes/week to receive nutrition clearance. Plan: follow up in 1 month. Total time in direct patient contact = 16 min. Greater than 50% of the time was spent in counseling and/or coordination of care. Hien Marinelli RD This note was generated using voice recognition technology and may contain grammatical errors. [facility] 02-22-2023 Note HNO ID: [id number] Author: Serenity Kumar APRN.[facility] Service: ? Author Type: Nurse Practitioner Type: Progress Notes Filed: 02/22/2023 2:12 PM Note Text: BARIATRIC SURGERY CLINIC FOLLOW UP NOTE DISTANCE HEALTH VISIT This Team Access Model visit is a virtual encounter. It required patient-provider interaction for the medical decision making as documented below. Consent was obtained to complete today's distance health visit. I have communicated my name and active licensure. The patient's identity and physical location were verified at the time of this visit. Either the patient or their legal veterans employment representative has been informed of the risks and benefits of -- and alternatives to -- treatment through a remote evaluation and consents to proceed with the evaluation remotely. HPI: Mariia Coughlin a 37 year old female for presents for medically supervised weight loss treatment of her obesity related co morbidities. This individual presents for month 5 of 6 required visits completed as a virtual telephone encounter Mariia Coughlin weight calculation has decreased. Denies recent illnesses, hospitalizations, ED visits. Denies acid reflux symptoms, abdominal pain, changes to stool pattern. She established with pulmonology who has cleared her to proceed with surgery without any testing. HISTORY REVIEWED (electronic chart updated): - medical history - medications - allergies PAST MEDICAL HISTORY Diagnosis Date HTN (hypertension) Mixed hyperlipidemia NEGATIVE MEDICAL HISTORY Social: Social History Tobacco Use Smoking status: Former Packs/day: 0.50 Years: 15.00 Pack years: 7.50 Types: Cigarettes Quit date: 06/2022 Years since quittin.6 Smokeless tobacco: Never Vaping Use Vaping Use: Never used Substance Use Topics Alcohol use: Never Comment: OCCASIONALLY, BUT NOT WHILE Drug use: No Medications: Current Outpatient Medications Medication Sig rosuvastatin (CRESTOR) 5 mg tablet Take 5 mg by mouth once daily. hydroCHLOROthiazide (HYDRODIURIL, ESIDRIX) 12.5 mg tablet Take 12.5 mg by mouth once daily. No current facility-administered medications for this visit. REVIEW OF SYSTEMS General: No fatigue or fevers HEENT: Negative for frequent or significant headaches, No changes in hearing or vision, no nose bleeds or other nasal problems PAP Therapy: Not needed. GI:No nausea, vomiting, or diarrhea and No heartburn or reflux symptoms Muskuloskeletal: Negative for joint pain or swelling, back pain or muscle pain Skin: Negative for lesions, rash, and itching Psych: Negative for sleep disturbance, mood disorder and recent psychosocial stressors PHYSICAL EXAMINATION Wt 130.6 kg (288 lb) BMI 45.11 kg/m2 Ht 170.2 cm (5' 7 ) BMI 45.11 kg/m2 GENERAL APPEARANCE: Pleasant, interacts appropriately and in no apparent distress. Appropriately groomed, happy, smiling, and interactive SKIN: Skin of normal texture, temperature without rashes/lesions/ulcerations. LUNGS: unlabored on room air negative findings: normal respiratory rate no cough NEURO/PSYCH: Oriented to person, place, time; appropriate insight and judgement. Appropriate affect. Diagnostic Tests Reviewed for Today's Visit Most recent lab and imaging results The plan of treatment for Mariia Coughlin is Further Work-up: Further Work-up: month required Procedure: Sleeve gastrectomy EGD: defer to UGI Upper GI: WNL Sleep Study: consult to sleep medicine placed RUQ US: NAFLD, cholelithiasis (asymptomatic) CXR: normal EKG: per cardiac clearance Labs: complete, WNL Nicotine: negative Toxicology: negative Consultations: PCP, sleep medicine (cleared; telephone encounter 02/17), Cardiology(03/23) Evaluations Psychology: on-going - 03/11 Nutrition: on-going Risk Calculator: VTE Risk: OR time < 3 hours = 0.16% OR time > 3 hours = 0.25% ISS Score: not diabetic Adverse Events Score: 1.49% Estrogen - reports not using Prescriptions Required: - Anti-reflux: will require - Lovenox: Not needed - Tylenol: will require - Actigall: NA, known cholelithiasis ASSESSMENT/PLAN: 1. Class 3 severe obesity due to excess calories with serious comorbidity and body mass index (BMI) of 45.0 to 49.9 in adult (HCC) - ICD9: 278.01, V85.42, ICD10: E66.01, Z68.42 (primary diagnosis) Weight decreasing - Behavioral intervention and - Medical nutrition therapy with dietitian - Nutrition Counseling Practice these: - Eat 3 meals daily--can use approved/recommended protein shake as 1 meal replacement (should be <200 calories, 20-30g protein, <5g added sugar) - Keep a food journal 5-7x/week (consider [employer] or [employer] dianna) and demonstrate meeting protein goal (60-90g protein for females, 70-105g protein for males)- Lean meats, fish, low fat dairy - cottage cheese, [place] yogurt, light yogurt, cheese, ricotta cheese, nuts, peanut butter, beans/legumes. Eat pr (more content not included)... [facility] 02-22-2023 History of Present illness Narrative Mariiazenia Brushcharlotte--Visit conducted via [employer] (audio and visual) d/t COVID 19 Education Class: Patient will receive instruction regarding healthy food choices and eating behaviors identified as optimal when preparing for surgery, losing weight after surgery, and maintaining weight loss long-term. Patient will also receive instruction regarding the Bariatric Full Liquid diet following surgery and optimal post-operative high-protein supplement choices. Education class to be completed prior to surgery. Behaviors Accomplished: Visit # 5 Date: 02/22/2023 Weight: 130.6 kg (288 lb), 8 lb weight loss since in office encounter. Behaviors that helped/hindered weight loss: Keeping journal daily Eating 3 meals/one snack Choose healthy foods Daily multivitamin Drink between meals Sip beverages slowly Eat slowly,chew well No high fat/fast foods D/c'd caffeinated, carbonated beverages 24 hour diet recall Breakfast: protein shake Lunch: grilled chicken/red pepper Dinner: hamburger on salad Snacks: celery/peanut butter Fluids (liquid intake-oz): yesterday: 64 oz , 2 days ago: 80 oz , 3 days ago: 64 oz, 4 days ago: 64 oz, 5 days ago: 56 oz, 6 days ago:64 oz, 7 days ago: 72 oz Alcohol/Caffeine/Sugar/Carbonation Beverages in Diet: no alcohol, decaf coffee only Protein (grams/day): yesterday: 70 grams, 2 days ago: 91 grams, 3 days ago: 81 grams, 4 days ago: 80 grams, 5 days ago: 105 grams, 6 days ago: 41 grams (forgot to log dinner), 7 days ago: 109 grams Exercise: 15 minutes---2 days/week, 3 days/week---30 minutes each. Averaging 90 minutes/week. Written information provided and reviewed: As noted Preop patient currently in month #5 supervised diet and exercise. She presents with a reported 8 pound weight loss since in office encounter. Continues to do well with adhering to most preop nutrition requirements. Over the last month, she has been able to completely eliminate alcohol from her diet, and has also been able to increase her exercise to as noted above. She is averaging approximately 90 minutes of physical activity per week, discussed need to increase to 150 minutes/week to obtain nutrition clearance. She continues to do well with maintaining a food journal-occasionally exceeding protein goal, counseled patient on importance of limiting daily protein intake to 90 g/day, most days per week. Goals eat 3 meals daily - protein source at each meal endorse in formal exercise 5-7 days per week for 30 min (per sesion) or 150 min of activity/week journal daily and bring to all appointments limit protein portions to 3 oz/meal The patient meets NIH guidelines for weight loss surgery and has been thoroughly evaluated and educated on good dietary practices. Patient is capable of following these guidelines pre-and post-surgically. From nutrition standpoint, the has partially met nutrition clearance and will need to increase exercise as tolerated to 5 days/week or 150 minutes/week to receive nutrition clearance. Plan: follow up in 1 month. Total time in direct patient contact = 16 min. Greater than 50% of the time was spent in counseling and/or coordination of care. Hien Marinelli RD This note was generated using voice recognition technology and may contain grammatical errors. documented in this encounter [facility] 02-22-2023 History of Present illness Narrative BARIATRIC SURGERY CLINIC FOLLOW UP NOTE DISTANCE HEALTH VISIT This Team Access Model visit is a virtual encounter. It required patient-provider interaction for the medical decision making as documented below. Consent was obtained to complete today's distance health visit. I have communicated my name and active licensure. The patient's identity and physical location were verified at the time of this visit. Either the patient or their legal veterans employment representative has been informed of the risks and benefits of -- and alternatives to -- treatment through a remote evaluation and consents to proceed with the evaluation remotely. HPI: Mariia Coughlin a 37 year old female for presents for medically supervised weight loss treatment of her obesity related co morbidities. This individual presents for month 5 of 6 required visits completed as a virtual telephone encounter Mariia Coughlin weight calculation has decreased. Denies recent illnesses, hospitalizations, ED visits. Denies acid reflux symptoms, abdominal pain, changes to stool pattern. She established with pulmonology who has cleared her to proceed with surgery without any testing. HISTORY REVIEWED (electronic chart updated): - medical history - medications - allergies PAST MEDICAL HISTORY Diagnosis Date HTN (hypertension) Mixed hyperlipidemia NEGATIVE MEDICAL HISTORY Social: Social History Tobacco Use Smoking status: Former Packs/day: 0.50 Years: 15.00 Pack years: 7.50 Types: Cigarettes Quit date: 06/2022 Years since quittin.6 Smokeless tobacco: Never Vaping Use Vaping Use: Never used Substance Use Topics Alcohol use: Never Comment: OCCASIONALLY, BUT NOT WHILE Drug use: No Medications: Current Outpatient Medications Medication Sig rosuvastatin (CRESTOR) 5 mg tablet Take 5 mg by mouth once daily. hydroCHLOROthiazide (HYDRODIURIL, ESIDRIX) 12.5 mg tablet Take 12.5 mg by mouth once daily. No current facility-administered medications for this visit. REVIEW OF SYSTEMS General: No fatigue or fevers HEENT: Negative for frequent or significant headaches, No changes in hearing or vision, no nose bleeds or other nasal problems PAP Therapy: Not needed. GI:No nausea, vomiting, or diarrhea and No heartburn or reflux symptoms Muskuloskeletal: Negative for joint pain or swelling, back pain or muscle pain Skin: Negative for lesions, rash, and itching Psych: Negative for sleep disturbance, mood disorder and recent psychosocial stressors PHYSICAL EXAMINATION Wt 130.6 kg (288 lb) BMI 45.11 kg/m2 Ht 170.2 cm (5' 7 ) BMI 45.11 kg/m2 GENERAL APPEARANCE: Pleasant, interacts appropriately and in no apparent distress. Appropriately groomed, happy, smiling, and interactive SKIN: Skin of normal texture, temperature without rashes/lesions/ulcerations. LUNGS: unlabored on room air negative findings: normal respiratory rate no cough NEURO/PSYCH: Oriented to person, place, time; appropriate insight and judgement. Appropriate affect. Diagnostic Tests Reviewed for Today's Visit Most recent lab and imaging results The plan of treatment for Mariia Coughlin is Further Work-up: Further Work-up: month required Procedure: Sleeve gastrectomy EGD: defer to UGI Upper GI: WNL Sleep Study: consult to sleep medicine placed RU US: NAFLD, cholelithiasis (asymptomatic) CXR: normal EKG: per cardiac clearance Labs: complete, WNL Nicotine: negative Toxicology: negative Consultations: PCP, sleep medicine (cleared; telephone encounter 02/17), Cardiology(03/23) Evaluations Psychology: on-going - 03/11 Nutrition: on-going Risk Calculator: VTE Risk: OR time < 3 hours = 0.16% OR time > 3 hours = 0.25% ISS Score: not diabetic Adverse Events Score: 1.49% Estrogen - reports not using Prescriptions Required: - Anti-reflux: will require - Lovenox: Not needed - Tylenol: will require - Actigall: NA, known cholelithiasis ASSESSMENT/PLAN: 1. Class 3 severe obesity due to excess calories with serious comorbidity and body mass index (BMI) of 45.0 to 49.9 in adult ([facility]) - ICD9: 278.01, V85.42, ICD10: E66.01, Z68.42 (primary diagnosis) Weight decreasing - Behavioral intervention and - Medical nutrition therapy with dietitian - Nutrition Counseling Practice these: - Eat 3 meals daily--can use approved/recommended protein shake as 1 meal replacement (should be <200 calories, 20-30g protein, <5g added sugar) - Keep a food journal 5-7x/week (consider [employer] or [employer] dianna) and demonstrate meeting protein goal (60-90g protein for females, 70-105g protein for males)- Lean meats, fish, low fat dairy - cottage cheese, [place] yogurt, light yogurt, cheese, ricotta cheese, nuts, peanut butter, beans/legumes. Eat protein first at all meals. and 64oz of caffeine-free, carbonation-free fluids at least 5 days per week - engage in formal, planned exercise 5x/week for 30 minutes of cardiovascular activity OR 150+ minutes of cardiovascular activity per week - eliminate all caffeine, carbonation, alcohol and sugar-containing beverages from diet --consider sugar-free drink mixes, water, decaf coffee and tea - Separate eating and drinking by 30 minutes - Chew your food 20-30x per bite - Sip beverages slowly--no guzzling or gulping 2. Hypertension, unspecified type - ICD9: 401.9, ICD10: I10 - scheduled with cardiology on 03/23 3. NAFLD (nonalcoholic fatty liver disease) - ICD9: 571.8, ICD10: K76.0 - continue efforts toward weight loss 4. Calculus of gallbladder without cholecystitis without obstruction - ICD9: 574.20, ICD10: K80.20 - remains asymptomatic All testing is complete. Still needs clearances from nutrition, psychology, and cardiology. Follow-up with [facility] next month to review clearance status. If she meets these clearances in the meantime, she can come back to consent for month #6. Serenity Kumar APRN.CNP Total time in direct patient contact = 7 min. Greater than 50% of the time was spent in counseling and/or coordination of care. This note was generated using voice recognition technology and may contain grammatical errors. Medical Decision Making: Problems: Moderate: 2+ stable chronic illnesses Data: Assessment requiring an independent historian(s) Medical Decision Making Level: 3 - Low documented in this encounter [facility] 02-17-2023 Note HNO ID: [id number] Author: Radhames Love MD Service: ? Author Type: Physician Type: Progress Notes Filed: 02/17/2023 1:21 PM Note Text: Pulmonary Consult Patient Name: Mariia Coughlin Overview Notes of Problems Addressed This Visit Other Obesity due to excess calories without serious comorbidity Preop pulmonary/respiratory exam ASSESSMENT: Preop pulmonary exam Obesity considering bariatric surgery (no date set) PLAN: Patient is clear from pulmonary perpective low risk for SHAMAR no further testing indicated at this aleksandra Patient is clear for surgery from pulmonary perspective Return to Office: PRN PRIMARY CARE PHYSICIAN: No primary care provider on file. Patient Ms. Coughlin states No primary care provider on file. requests consultation regarding Preop pulmonary eval for bariatric surgery . My final recommendations will be communicated to the requesting health care provider by way of the shared medical record for internal providers or letter via the [employer] for external providers. 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 am for kids Weekend sleep schedule: Same - maybe a bit later to bed and rise NA: none Typical hours of sleep: 8-9 hours A Good nights sleep : 8-9 hours Sleep is refreshing RLS Symptoms: none Preferred sleep position: side Naps: none Caffeinated Beverages: 2-3 cups coffee in am - but now decaf Morning Headaches: none Dry mouth/Sore throat: none No loud witnessed snoring; No subjective snoring No witnessed apneas; No subjective apneas Sleep medications: none Family hx: none Prior Studies: none Sleep Paralysis: No Hypnogogic hallucinations: No Cataplexy: No Weight has been overall stable - mild weight loss with diet Revere Sleepiness Scale: Total: 0 REVIEW OF SYSTEMS: GENERAL: No fevers, chills or sweats HEENT: Negative for frequent or significant headaches, No changes in hearing or vision, no nose bleeds or other nasal problems, No dysphagia RESPIRATORY: Negative for cough, sputum production or hemoptysis, No wheezing or dyspnea CARDIOVASCULAR: Negative for chest pain, palpitations, Negative for lower extremity edema GI: No abdominal pain, nausea or vomiting, No diarrhea or constipation, No hematochezia or hematemesis : No dysuria, polyuria, hematuria or nocturia NEURO: No history of headaches, syncope, paralysis, seizures or tremors SLEEP: no sleep concerns A complete ROS was performed and all other systems are negative No question data found. PAST MEDICAL HISTORY: PAST MEDICAL HISTORY Diagnosis Date HTN (hypertension) Mixed hyperlipidemia NEGATIVE MEDICAL HISTORY PAST SURGICAL HISTORY: PAST SURGICAL HISTORY Procedure Laterality Date CYST/MOLE REMOVAL wrist cyst removal ESSURE DEVICE 2011 NONE FAMILY HISTORY: FAMILY HISTORY Problem Relation Age of Onset Hypertension Mother Arthritis Maternal Grandmother Prostate Cancer Paternal Grandfather Diabetes Maternal Grandfather Hypertension Father Lipids Mother Lipids Father SOCIAL HISTORY: Social History Tobacco Use Smoking status: Former Packs/day: 0.50 Years: 15.00 Pack years: 7.50 Types: Cigarettes Quit date: 06/2022 Years since quittin.6 Smokeless tobacco: Never Vaping Use Vaping Use: Never used Substance Use Topics Alcohol use: Not Currently Comment: OCCASIONALLY, BUT NOT WHILE Drug use: No MEDICATIONS: rosuvastatin (CRESTOR) 5 mg tablet Take 5 mg by mouth once daily. hydroCHLOROthiazide (HYDRODIURIL, ESIDRIX) 12.5 mg tablet Take 12.5 mg by mouth once daily. ALLERGIES No Known Allergies PHYSICAL EXAM: BP 145/87 Pulse 86 Temp (Src) 98.2 (Temporal) Resp 16 Ht 5' 7 (1.70m) Wt 291 lb (132.0kg) SpO2 99% LMP 11/28/2011 BMI 45.57 kg/(m2). GENERAL: Alert, no distress, cooperative SKIN: Skin color, texture, turgor normal. No rashes or lesions. HEAD/SINUSES: No significant findings, no sinus tenderness EYES: PERRL, EOM'S INTACT, Conjunctivae AND Sclerae Normal EARS: External ears normal. NOSE: Nares normal. Septum midline. OROPHARYNX: Grossly normal Dentition good NECK: No accessory muscle use, supple BACK: Back symmetric, Normal curvature, ROM normal, No CVAT. LUNGS: clear to auscultation Negative findings: normal respiratory rate and rhythm, chest symmetric with normal A/P diameter, no chest deformities noted, no chest wall tenderness, diaphragmatic excursion normal CARDIAC: Regular rate and rhythm, no significant murmurs, rubs or gallops ABDOMEN: Soft, Nontender, Nondis (more content not included)... [facility] 02-17-2023 Miscellaneous Notes Radhames Love MD sent to Serenity Kumar APRN.CNP Pt is clear for surgery, no testing indicated. Serenity Kumar APRN.[facility] documented in this encounter [facility] 02-17-2023 History of Present illness Narrative Images from the original note were not included. Pulmonary Consult Patient Name: Mariia Coughlin Overview Notes of Problems Addressed This Visit Other Obesity due to excess calories without serious comorbidity Preop pulmonary/respiratory exam ASSESSMENT: Preop pulmonary exam Obesity considering bariatric surgery (no date set) PLAN: Patient is clear from pulmonary perpective low risk for SHAMAR no further testing indicated at this aleksandra Patient is clear for surgery from pulmonary perspective Return to Office: PRN PRIMARY CARE PHYSICIAN: No primary care provider on file. Patient Ms. Coughlin states No primary care provider on file. requests consultation regarding Preop pulmonary eval for bariatric surgery . My final recommendations will be communicated to the requesting health care provider by way of the shared medical record for internal providers or letter via the [employer] for external providers. CHIEF COMPLAINT: preop pulm eval HPI: This is a 37 year old person who presents with obesity for possible bariatric surgery former smoker - 23 yo - 1/2 ppd - 06/30/2022 No pulmonary disease by hx or sx Works in [employer] for [employer] Sleep history: Denies any sleep complaint, concern or diagnosis Overall sleep: good Re: sleep To bed: 9 SL: 20 min Wakes for day: 530 am for kids Weekend sleep schedule: Same - maybe a bit later to bed and rise NA: none Typical hours of sleep: 8-9 hours A Good nights sleep : 8-9 hours Sleep is refreshing RLS Symptoms: none Preferred sleep position: side Naps: none Caffeinated Beverages: 2-3 cups coffee in am - but now decaf Morning Headaches: none Dry mouth/Sore throat: none No loud witnessed snoring; No subjective snoring No witnessed apneas; No subjective apneas Sleep medications: none Family hx: none Prior Studies: none Sleep Paralysis: No Hypnogogic hallucinations: No Cataplexy: No Weight has been overall stable - mild weight loss with diet Revere Sleepiness Scale: Total: 0 REVIEW OF SYSTEMS: GENERAL: No fevers, chills or sweats HEENT: Negative for frequent or significant headaches, No changes in hearing or vision, no nose bleeds or other nasal problems, No dysphagia RESPIRATORY: Negative for cough, sputum production or hemoptysis, No wheezing or dyspnea CARDIOVASCULAR: Negative for chest pain, palpitations, Negative for lower extremity edema GI: No abdominal pain, nausea or vomiting, No diarrhea or constipation, No hematochezia or hematemesis : No dysuria, polyuria, hematuria or nocturia NEURO: No history of headaches, syncope, paralysis, seizures or tremors SLEEP: no sleep concerns A complete ROS was performed and all other systems are negative No question data found. PAST MEDICAL HISTORY: PAST MEDICAL HISTORY Diagnosis Date HTN (hypertension) Mixed hyperlipidemia NEGATIVE MEDICAL HISTORY PAST SURGICAL HISTORY: PAST SURGICAL HISTORY Procedure Laterality Date CYST/MOLE REMOVAL wrist cyst removal ESSURE DEVICE 2011 NONE FAMILY HISTORY: FAMILY HISTORY Problem Relation Age of Onset Hypertension Mother Arthritis Maternal Grandmother Prostate Cancer Paternal Grandfather Diabetes Maternal Grandfather Hypertension Father Lipids Mother Lipids Father SOCIAL HISTORY: Social History Tobacco Use Smoking status: Former Packs/day: 0.50 Years: 15.00 Pack years: 7.50 Types: Cigarettes Quit date: 06/2022 Years since quittin.6 Smokeless tobacco: Never Vaping Use Vaping Use: Never used Substance Use Topics Alcohol use: Not Currently Comment: OCCASIONALLY, BUT NOT WHILE Drug use: No MEDICATIONS: rosuvastatin (CRESTOR) 5 mg tablet Take 5 mg by mouth once daily. hydroCHLOROthiazide (HYDRODIURIL, ESIDRIX) 12.5 mg tablet Take 12.5 mg by mouth once daily. ALLERGIES No Known Allergies PHYSICAL EXAM: BP 145/87 Pulse 86 Temp (Src) 98.2 (Temporal) Resp 16 Ht 5' 7 (1.70m) Wt 291 lb (132.0kg) SpO2 99% LMP 11/28/2011 BMI 45.57 kg/(m^2). GENERAL: Alert, no distress, cooperative SKIN: Skin color, texture, turgor normal. No rashes or lesions. HEAD/SINUSES: No significant findings, no sinus tenderness EYES: PERRL, EOM'S INTACT, Conjunctivae & Sclerae Normal EARS: External ears normal. NOSE: Nares normal. Septum midline. OROPHARYNX: Grossly normal Dentition good NECK: No accessory muscle use, supple BACK: Back symmetric, Normal curvature, ROM normal, No CVAT. LUNGS: clear to auscultation Negative findings: normal respiratory rate and rhythm, chest symmetric with normal A/P diameter, no chest deformities noted, no chest wall tenderness, diaphragmatic excursion normal CARDIAC: Regular rate and rhythm, no significant murmurs, rubs or gallops ABDOMEN: Soft, Nontender, Nondistended EXTREMITIES: Normal, Warm, No cyanosis, no clubbing No edema NEURO: muscle tone normal, muscle strength normal Moves bilaterally, nonfocal, sensation grossly intact The remainder of the physical exam is noncontributory. DATA: Sleep Studies: None Radiology: Reviewed Laboratory: Reviewed SIGNATURE: Radhames Love MD CC: No primary care provider on file. documented in this encounter [facility] 02-04-2023 Note HNO ID: [id number] Author: Ciro Che, PhD Service: ? Author Type: Psychologist Type: Progress Notes Filed: 02/04/2023 10:51 AM Note Text: BARIATRIC SURGERY BEHAVIORAL HEALTH EVALUATION DATE OF SERVICE: February 04, 2023 TIME OF SERVICE: [id number] CPT CODE: 61870 Psychiatric diagnostic evaluation BILLING CODE: Ciro Che, PhD CHIEF COMPLAINT: Pre-surgical psychological evaluation DATE OF FIRST SERVICE THIS CYCLE: February 04, 2023 SESSION #: 1 The patient signed the Informed Consent for Psychological Evaluation AND Care Form, and the [facility] insurance benefits, fees for service, emergency procedures, and the limits of confidentiality that may pertain with any given case were discussed with the patient. Ms. Coughlin was given a copy of the consent form. IDENTIFYING INFORMATION: Ms. Mariia Coughlin is a 37 year old female. She was referred by Surgery. Ms. Coughlin is seeking gastric sleeve surgery for morbid obesity. Her surgeon is Dr. Talavera. COLLATERAL PARTIES PRESENT: none. MOTIVATION FOR SURGERY / UNDERSTANDING OF PROCEDURE / EXPECTATIONS: Ms. Coughlin notes she is motivated for surgery by medical problems, hypertension, and improve quality of life. The patient has a good understanding of the surgery, risks, and benefits. She has talked with other people who have undergone the procedure. Specific areas of understanding that should be addressed include n/a. The patient has not attended a weight loss surgery support group. The patient expects to lose 149 lbs. following surgery over 12-18 months. Other expectations include improvement in health and increased self - worth. Educated patient regarding expected weight loss after surgical procedure and timeline of weight loss/surgery recovery. CAPACITY TO CONSENT: Ms. Coughlin evidences the following concerns regarding capacity to consent: none noted. MEDICAL PROBLEMS Hypertension High cholesterol Denied seizures, head injuries PAST SURGICAL HISTORY Procedure Laterality Date CYST/MOLE REMOVAL wrist cyst removal ESSURE DEVICE 2011 NONE Past surgeries? Yes History of psychological complications post-surgery? No MEDICATIONS Hydrochlorothiazide Crestor Multivitamin ALLERGIES No Known Allergies EATING/WEIGHT HISTORY: Ms. Coughlin was average weight as a child up until sixth grade when she started menstruating. She said she began steadily gaining weight at that point. She reportedly gained until around age 16 when she lost 50 pounds from a stressor (she was staying with her uncle to take care of him as he had major medical issues and she said it was hard to eat during this time). Her weight at age 16 was 200 lbs. The patient reports the following factors as contributing to weight gain: inactivity, portion sizes, , poor eating habits, and genetic predisposition . The patient reports a family history of obesity (mother and father). Current Weight: 289 Current height: 5'7 BMI: 45.3 The patient has tried weight loss strategies in the past including Diet pills, Exercise/increased activity, Keto, Weight watchers, and a weight loss program through her chiropractor that involved a keto diet and supplements. The most weight the patient has lost is 45 lbs. using program with her chiropractor. The patient denies a history of laxative use. The patient denies a history of vomiting to lose weight. The patient denies a history of eating disorder(s). She has not had treatment for eating disorders in the past. Patient reports eating three meals/day, with one snack. She reported having three meals on approximately five days. Breakfast: protein shake Lunch: spaghetti squash, chicken breast, salad Dinner: fish, lean meats (turkey), a vegetable, healthier starches (e.g. sweet potato) Is not consistently keeping food journal. Keeping intermittently- missing whole days and meals on some days. Eating for coping/emotional eating: Does not report a significant history of emotional eating; denies this currently. The patient notes decaffeinated coffee/tea use of three cups/day. Soda pop usage is none per day. The patient shows graze eating behaviors: Yes. Endorsed some snacking about four days before her period starts. Has been choosing healthier snacks since starting the program (e.g. celery sticks and peanut butter). Does patient note loss of control with grazing? No. Grazing occurs about one day/week if you average out the days prior to her period. Exercise Uses a [employer] hoop for 30 minutes three days/week Uses elliptical twice/week for 30 minutes BINGE EATING ASSESSMENT: A. Recurrent episodes of binge eating. An episode is characterized by: 1. Eating a larger amount of food than normal during a short period of time (within any two hour period): No 2. Lack of control over eating during the binge episode (i.e. the feeling that one cannot stop eating): No (more content not included)... [facility] 01-24-2023 Note HNO ID: [id number] Author: Hien Marinelli RD Service: ? Author Type: Registered Dietitian Type: Progress Notes Filed: 01/24/2023 10:41 AM Note Text: Mariia Coughlin--Visit conducted via [employer] (audio and visual) d/t COVID 19 Education Class: Patient will receive instruction regarding healthy food choices and eating behaviors identified as optimal when preparing for surgery, losing weight after surgery, and maintaining weight loss long-term. Patient will also receive instruction regarding the Bariatric Full Liquid diet following surgery and optimal post-operative high-protein supplement choices. Education class to be completed prior to surgery. Behaviors Accomplished: Visit # 4 Date: 01/24/2023 Weight: 130.6 kg (288 lb), 8 lb weight loss since in office visit. Behaviors that helped/hindered weight loss: helped--consistent Keeping journal daily Eating 3 meals/one snack Choose healthy foods Daily multivitamin Drink between meals Sip beverages slowly Eat slowly,chew well No high fat/fast foods D/c'd caffeinated, carbonated beverages 24 hour diet recall Breakfast: protein shake (30 grams) Lunch: skipped Dinner: ground chicken casserole Snacks: none Fluids (liquid intake-oz): yesterday: 56 oz , 2 days ago: 64 oz, 3 days ago: 72 oz, 4 days ago: 72 oz, 5 days ago: 72 oz, 6 days ago: n/a, 7 days ago: 64 oz Alcohol/Caffeine/Sugar/Carbonation Beverages in Diet: switched to decaf coffee. Discontinued sweet tea. 2 beer in last month. Protein (grams/day): yesterday: 58 grams, 2 days ago: 93 grams, 3 days ago: 89 grams, 4 days ago: 68 grams, 5 days ago: 64 grams, 6 days ago: n/a , 7 days ago: 72 grams Exercise: no formal exercise in last week--previously doing [employer]--30 minutes, 3-4 days/week (breaking a sweat) Written information provided and reviewed: As noted Preop patient currently in month number 4 of supervised diet and exercise. Over the last month, she has made significant progress-has been able to discontinue sweet tea/caffeine containing beverages, is now consistently maintaining a food journal at least 5 days/week and also able to demonstrate an ability to meet protein and fluid goals. Over the last week, she has been unable to exercise. She plans to resume her exercise and increase to 5 days/week. Goals discontinue alcoholbeverages eat 3 meals daily - protein source at each meal endorse in formal exercise 5-7 days per week for 30 min (per sesion) or 150 min of activity/week journal daily and bring to all appointments limit protein portions to 3 oz/meal The patient meets NIH guidelines for weight loss surgery and has been thoroughly evaluated and educated on good dietary practices. Patient is capable of following these guidelines pre-and post-surgically. From nutrition standpoint, the has partially met nutrition clearance and will need to demonstrate eliminating alcohol from diet and increase exercise as tolerated to 5 days/week or 150 minutes/week to receive nutrition clearance. Plan: follow up in 1 month Total time in direct patient contact = 22 min. Greater than 50% of the time was spent in counseling and/or coordination of care. Hien Marinelli RD This note was generated using voice recognition technology and may contain grammatical errors. [facility] 01-24-2023 History of Present illness Narrative Mariia Coughlin--Visit conducted via [employer] (audio and visual) d/t AURELIAID 19 Education Class: Patient will receive instruction regarding healthy food choices and eating behaviors identified as optimal when preparing for surgery, losing weight after surgery, and maintaining weight loss long-term. Patient will also receive instruction regarding the Bariatric Full Liquid diet following surgery and optimal post-operative high-protein supplement choices. Education class to be completed prior to surgery. Behaviors Accomplished: Visit # 4 Date: 01/24/2023 Weight: 130.6 kg (288 lb), 8 lb weight loss since in office visit. Behaviors that helped/hindered weight loss: helped--consistent Keeping journal daily Eating 3 meals/one snack Choose healthy foods Daily multivitamin Drink between meals Sip beverages slowly Eat slowly,chew well No high fat/fast foods D/c'd caffeinated, carbonated beverages 24 hour diet recall Breakfast: protein shake (30 grams) Lunch: skipped Dinner: ground chicken casserole Snacks: none Fluids (liquid intake-oz): yesterday: 56 oz , 2 days ago: 64 oz, 3 days ago: 72 oz, 4 days ago: 72 oz, 5 days ago: 72 oz, 6 days ago: n/a, 7 days ago: 64 oz Alcohol/Caffeine/Sugar/Carbonation Beverages in Diet: switched to decaf coffee. Discontinued sweet tea. 2 beer in last month. Protein (grams/day): yesterday: 58 grams, 2 days ago: 93 grams, 3 days ago: 89 grams, 4 days ago: 68 grams, 5 days ago: 64 grams, 6 days ago: n/a , 7 days ago: 72 grams Exercise: no formal exercise in last week--previously doing [employer]--30 minutes, 3-4 days/week (breaking a sweat) Written information provided and reviewed: As noted Preop patient currently in month number 4 of supervised diet and exercise. Over the last month, she has made significant progress-has been able to discontinue sweet tea/caffeine containing beverages, is now consistently maintaining a food journal at least 5 days/week and also able to demonstrate an ability to meet protein and fluid goals. Over the last week, she has been unable to exercise. She plans to resume her exercise and increase to 5 days/week. Goals discontinue alcoholbeverages eat 3 meals daily - protein source at each meal endorse in formal exercise 5-7 days per week for 30 min (per sesion) or 150 min of activity/week journal daily and bring to all appointments limit protein portions to 3 oz/meal The patient meets NIH guidelines for weight loss surgery and has been thoroughly evaluated and educated on good dietary practices. Patient is capable of following these guidelines pre-and post-surgically. From nutrition standpoint, the has partially met nutrition clearance and will need to demonstrate eliminating alcohol from diet and increase exercise as tolerated to 5 days/week or 150 minutes/week to receive nutrition clearance. Plan: follow up in 1 month Total time in direct patient contact = 22 min. Greater than 50% of the time was spent in counseling and/or coordination of care. Hien Marinelli RD This note was generated using voice recognition technology and may contain grammatical errors. documented in this encounter [facility] 01-05-2023 Note HNO ID: [id number] Author: Serenity Kumar APRN.[facility] Service: ? Author Type: Nurse Practitioner Type: Progress Notes Filed: 01/05/2023 10:16 AM Note Text: BARIATRIC SURGERY CLINIC FOLLOW UP NOTE DISTANCE HEALTH VISIT This Team Access Model visit is a virtual encounter. It required patient-provider interaction for the medical decision making as documented below. Consent was obtained to complete today's distance health visit. HPI: Mariia Coughlin a 37 year old female for presents for medically supervised weight loss treatment of her obesity related co morbidities. This individual presents for month 3 of 6 required visits completed as a virtual telephone encounter Mariia Coughlin weight calculation has decreased since her last visit. She had the flu last week-otherwise denies illnesses, hospitalizations, ED visits. Denies acid reflux symptoms, abdominal pain, changes to stool pattern. Reviewed results of chest x-ray and labs which were normal. Reviewed results of upper GI which was normal. Reviewed results of right upper quadrant ultrasound which demonstrated NAFLD and cholelithiasis-patient is asymptomatic. Denies epigastric and right upper quadrant pain, nausea, vomiting, fevers, chills, diarrhea. HISTORY REVIEWED (electronic chart updated): - medical history - medications - allergies PAST MEDICAL HISTORY Diagnosis Date HTN (hypertension) Mixed hyperlipidemia NEGATIVE MEDICAL HISTORY Social: Social History Tobacco Use Smoking status: Former Packs/day: 0.50 Years: 15.00 Pack years: 7.50 Types: Cigarettes Quit date: 06/2022 Years since quittin.5 Smokeless tobacco: Never Vaping Use Vaping Use: Never used Substance Use Topics Alcohol use: Not Currently Comment: OCCASIONALLY, BUT NOT WHILE Drug use: No Medications: Current Outpatient Medications Medication Sig rosuvastatin (CRESTOR) 5 mg tablet Take 5 mg by mouth once daily. hydroCHLOROthiazide (HYDRODIURIL, ESIDRIX) 12.5 mg tablet Take 12.5 mg by mouth once daily. No current facility-administered medications for this visit. REVIEW OF SYSTEMS General: No fatigue or fevers HEENT: Negative for frequent or significant headaches, No changes in hearing or vision, no nose bleeds or other nasal problems PAP Therapy: TBD GI:No nausea, vomiting, or diarrhea and No heartburn or reflux symptoms Muskuloskeletal: Negative for joint pain or swelling, back pain or muscle pain Skin: Negative for lesions, rash, and itching Psych: Negative for sleep disturbance, mood disorder and recent psychosocial stressors PHYSICAL EXAMINATION Wt 131.1 kg (289 lb) BMI 45.95 kg/m2 Ht 168.9 cm (5' 6.5 ) BMI 45.95 kg/m2 GENERAL APPEARANCE: Pleasant, interacts appropriately and in no apparent distress. Appropriately groomed, happy, smiling, and interactive SKIN: Skin of normal texture, temperature without rashes/lesions/ulcerations. LUNGS: unlabored on room air negative findings: normal respiratory rate no cough NEURO/PSYCH: Oriented to person, place, time; appropriate insight and judgement. Appropriate affect. Diagnostic Tests Reviewed for Today's Visit Most recent lab and imaging results The plan of treatment for Mariia Coughlin is Further Work-up: month 3 of 6 required Procedure: Sleeve gastrectomy EGD: defer to UGI Upper GI: WNL Sleep Study: consult to sleep medicine placed- scheduled 03/21 RUQ US: NAFLD, cholelithiasis (asymptomatic) CXR: normal EKG: ordered Labs: complete, WNL Additional ordered today Nicotine: negative Toxicology: negative Consultations: PCP, sleep medicine (03/21), Cardiology Evaluations Psychology: on-going Nutrition: on-going Risk Calculator: VTE Risk: OR time < 3 hours = 0.16% OR time > 3 hours = 0.25% ISS Score: not diabetic Adverse Events Score: 1.49% Estrogen - reports not using Prescriptions Required: - Anti-reflux: will require - Lovenox: Not needed - Tylenol: will require - Actigall: NA, known cholelithiasis ASSESSMENT/PLAN: 1. Class 3 severe obesity due to excess calories with serious comorbidity and body mass index (BMI) of 45.0 to 49.9 in adult (HCC) - ICD9: 278.01, V85.42, ICD10: E66.01, Z68.42 (primary diagnosis) Weight decreasing - Behavioral intervention and - Medical nutrition therapy with dietitian - Nutrition Counseling Practice these: - Eat 3 meals daily--can use approved/recommended protein shake as 1 meal replacement (should be <200 calories, 20-30g protein, <5g added sugar) - Keep a food journal 5-7x/week (consider [employer] or Meritful dianna) and demonstrate meeting protein goal (60-90g protein for females, 70-105g protein for males)- Lean meats, fish, low fat dairy - cottage cheese, [place] yogurt, light yogurt, cheese, ricotta cheese, nuts, peanut butter, beans/legumes. Eat protein first at all meals. and 64oz of caffeine-free, carbonation-free fluids at least 5 days per week (more content not included)... [facility] 01-05-2023 Instructions Serenity Kumar APRN.[facility] - 01/05/2023 10:16 AM EST Images from the original note were not included. Fatty Liver Disease What is fatty liver disease? Fatty liver disease (steatosis) is a common problem caused by the build-up of certain fats in the liver. The liver normally contains a small amount of fat. However, if more than 5 to 15% of the liver s weight consists of fat, fatty liver disease is present. What are the symptoms of fatty liver disease? People with fatty liver disease usually do not have any symptoms. If symptoms appear, they may include: A feeling of fullness in the middle or upper right side of the abdomen Abdominal pain Loss of appetite or weight loss Nausea Weakness Jaundice (yellowing of the skin and the whites of the eyes) Swelling of the abdomen and legs (edema) Mental confusion Extreme fatigue or tiredness What are the forms of fatty liver disease? There are two main forms of fatty liver disease. Non-alcoholic fatty liver--Fat build-up in the liver that is not linked to drinking alcohol. Alcoholic fatty liver--Fat build-up in the liver due to drinking large amounts of alcohol (two or more drinks per day.) What are the effects of fatty liver disease? In most cases, fatty liver disease does not cause any serious problems or prevent the liver from functioning normally. However, it may lead to liver damage under certain circumstances. Non-alcoholic steatohepatitis (MOORE) is the most severe condition resulting from non-alcoholic fatty liver disease. MOORE is more likely to occur in people who are overweight or obese, or who have diabetes. Fatty liver affects up to 25% of people in the [place] and is one of the country s main causes of cirrhosis of the liver. What are the risk factors for fatty liver disease? There are many risk factors for non-alcoholic fatty liver disease. A risk factor makes a person more likely to have a condition or disease. Some risk factors for fatty liver are: Being obese or overweight Having type 2 diabetes or insulin resistance Having metabolic syndrome--A combination of excess body weight, insulin resistance, high blood pressure, and high triglyceride levels. Some genetic metabolic conditions or prescription medications (amiodarone, diltiazem, steroids, and tamoxifen) also may increase the risk of non-alcoholic fatty liver disease. If you are taking one of these medications, your doctor might substitute another drug for it. How is fatty liver disease diagnosed? Blood tests may be done to check for elevated levels of certain liver enzymes. An ultrasound or computed tomography (CT) scan of the liver may be done to check for abnormalities and confirm the diagnosis of fatty liver disease. A liver biopsy (tissue sample) may be needed if your doctor suspects that you have severe liver disease. How is fatty liver disease treated? There is no single treatment for fatty liver disease. In most cases, no treatment is required. If it is needed, treatment will depend on the underlying cause. Your doctor may recommend that you go on a diet, since losing weight can reduce the amount of fat in the liver. Even losing 1 or 2 pounds per week might help. Your doctor or can filling machine operator can give you advice on healthy weight loss techniques. Drugs that regulate blood sugar levels can be helpful in treating fatty liver in diabetic patients. Also, vitamin E has been shown to be effective in some cases and is currently being studied. How can fatty liver disease be prevented? Maintain a healthy weight. If you are overweight or obese, lose weight gradually. Eat a balanced diet. Avoid foods that are high in cholesterol. Vegetables, fruits, and low-fat foods may help lower cholesterol and triglyceride levels. Exercise regularly. Limit your alcohol consumption or do not drink. Take medications as prescribed. Your doctor may prescribe statins to lower triglyceride levels or anti-diabetic drugs if you are diabetic or insulin-resistant. References [employer]. Non-Alcoholic Fatty Liver Disease Accessed 07/30/2015. National Institutes of Health. Nonalcoholic Steatohepatitis Accessed 07/30/2015. [employer]. Nonalcoholic Fatty Liver Disease Accessed 07/30/2015. The Merck Manual Home Edition. Fatty Liver Accessed 07/30/2015 Copyright 1292-5339 [facility], [place]. All rights reserved. documented in this encounter [facility] 01-05-2023 History of Present illness Narrative BARIATRIC SURGERY CLINIC FOLLOW UP NOTE DISTANCE HEALTH VISIT This Team Access Model visit is a virtual encounter. It required patient-provider interaction for the medical decision making as documented below. Consent was obtained to complete today's distance health visit. HPI: Mariia Coughlin a 37 year old female for presents for medically supervised weight loss treatment of her obesity related co morbidities. This individual presents for month 3 of 6 required visits completed as a virtual telephone encounter Mariia Coughlin weight calculation has decreased since her last visit. She had the flu last week-otherwise denies illnesses, hospitalizations, ED visits. Denies acid reflux symptoms, abdominal pain, changes to stool pattern. Reviewed results of chest x-ray and labs which were normal. Reviewed results of upper GI which was normal. Reviewed results of right upper quadrant ultrasound which demonstrated NAFLD and cholelithiasis-patient is asymptomatic. Denies epigastric and right upper quadrant pain, nausea, vomiting, fevers, chills, diarrhea. HISTORY REVIEWED (electronic chart updated): - medical history - medications - allergies PAST MEDICAL HISTORY Diagnosis Date HTN (hypertension) Mixed hyperlipidemia NEGATIVE MEDICAL HISTORY Social: Social History Tobacco Use Smoking status: Former Packs/day: 0.50 Years: 15.00 Pack years: 7.50 Types: Cigarettes Quit date: 06/2022 Years since quittin.5 Smokeless tobacco: Never Vaping Use Vaping Use: Never used Substance Use Topics Alcohol use: Not Currently Comment: OCCASIONALLY, BUT NOT WHILE Drug use: No Medications: Current Outpatient Medications Medication Sig rosuvastatin (CRESTOR) 5 mg tablet Take 5 mg by mouth once daily. hydroCHLOROthiazide (HYDRODIURIL, ESIDRIX) 12.5 mg tablet Take 12.5 mg by mouth once daily. No current facility-administered medications for this visit. REVIEW OF SYSTEMS General: No fatigue or fevers HEENT: Negative for frequent or significant headaches, No changes in hearing or vision, no nose bleeds or other nasal problems PAP Therapy: TBD GI:No nausea, vomiting, or diarrhea and No heartburn or reflux symptoms Muskuloskeletal: Negative for joint pain or swelling, back pain or muscle pain Skin: Negative for lesions, rash, and itching Psych: Negative for sleep disturbance, mood disorder and recent psychosocial stressors PHYSICAL EXAMINATION Wt 131.1 kg (289 lb) BMI 45.95 kg/m2 Ht 168.9 cm (5' 6.5 ) BMI 45.95 kg/m2 GENERAL APPEARANCE: Pleasant, interacts appropriately and in no apparent distress. Appropriately groomed, happy, smiling, and interactive SKIN: Skin of normal texture, temperature without rashes/lesions/ulcerations. LUNGS: unlabored on room air negative findings: normal respiratory rate no cough NEURO/PSYCH: Oriented to person, place, time; appropriate insight and judgement. Appropriate affect. Diagnostic Tests Reviewed for Today's Visit Most recent lab and imaging results The plan of treatment for Mariia Coughlin is Further Work-up: month 3 of 6 required Procedure: Sleeve gastrectomy EGD: defer to UGI Upper GI: WNL Sleep Study: consult to sleep medicine placed- scheduled 03/21 RUQ US: NAFLD, cholelithiasis (asymptomatic) CXR: normal EKG: ordered Labs: complete, WNL Additional ordered today Nicotine: negative Toxicology: negative Consultations: PCP, sleep medicine (03/21), Cardiology Evaluations Psychology: on-going Nutrition: on-going Risk Calculator: VTE Risk: OR time < 3 hours = 0.16% OR time > 3 hours = 0.25% ISS Score: not diabetic Adverse Events Score: 1.49% Estrogen - reports not using Prescriptions Required: - Anti-reflux: will require - Lovenox: Not needed - Tylenol: will require - Actigall: NA, known cholelithiasis ASSESSMENT/PLAN: 1. Class 3 severe obesity due to excess calories with serious comorbidity and body mass index (BMI) of 45.0 to 49.9 in adult (HCC) - ICD9: 278.01, V85.42, ICD10: E66.01, Z68.42 (primary diagnosis) Weight decreasing - Behavioral intervention and - Medical nutrition therapy with dietitian - Nutrition Counseling Practice these: - Eat 3 meals daily--can use approved/recommended protein shake as 1 meal replacement (should be <200 calories, 20-30g protein, <5g added sugar) - Keep a food journal 5-7x/week (consider [employer] or Meritful dianna) and demonstrate meeting protein goal (60-90g protein for females, 70-105g protein for males)- Lean meats, fish, low fat dairy - cottage cheese, [place] yogurt, light yogurt, cheese, ricotta cheese, nuts, peanut butter, beans/legumes. Eat protein first at all meals. and 64oz of caffeine-free, carbonation-free fluids at least 5 days per week - engage in formal, planned exercise 5x/week for 30 minutes of cardiovascular activity OR 150+ minutes of cardiovascular activity per week - eliminate all caffeine, carbonation, alcohol and sugar-containing beverages from diet --consider sugar-free drink mixes, water, decaf coffee and tea - Separate eating and drinking by 30 minutes - Chew your food 20-30x per bite - Sip beverages slowly--no guzzling or gulping - CONSULT TO CARDIOLOGY - IRON + TIBC - FOLATE SERUM - LIPID PANEL BASIC - PTH INTACT BLD - TSH BLD - HGB A1C - FERRITIN BLD 2. Hypertension, unspecified type - ICD9: 401.9, ICD10: I10 - on HCTZ - insurance requires cardiac clearance - CONSULT TO CARDIOLOGY 3. Hyperlipidemia, unspecified hyperlipidemia type - ICD9: 272.4, ICD10: E78.5 - CONSULT TO CARDIOLOGY 4. NAFLD (nonalcoholic fatty liver disease) - ICD9: 571.8, ICD10: K76.0 - Noted on RUQ US; discussed etiology 5. Calculus of gallbladder without cholecystitis without obstruction - ICD9: 574.20, ICD10: K80.20 - incidentally noted on RUQ US; asymptomatic - reviewed s/sx to be aware of and to contact the office if they were to present Still needs additional labs, EKG, and clearances from psychology, nutrition, sleep medicine, and cardiology. Follow-up with RD in 4 weeks and [facility] in 8 weeks. Serenity Kumar APRN.CNP Total time in direct patient contact = 12 min. Greater than 50% of the time was spent in counseling and/or coordination of care. This note was generated using voice recognition technology and may contain grammatical errors. Medical Decision Making: Problems: Moderate: 2+ stable chronic illnesses Data: Unique test result(s) reviewed: 3+ Unique test(s) ordered: 1 Assessment requiring an independent historian(s) Risk: Minimal: Minimal risk from testing/treatment Medical Decision Making Level: 4 - Moderate documented in this encounter [facility] 12-29-2022 Note HNO ID: [id number] Author: Hien Marinelli RD Service: ? Author Type: Registered Dietitian Type: Progress Notes Filed: 12/29/2022 10:36 AM Note Text: Mariia Coughlin--Visit conducted via [employer] (audio and visual) d/t COVID 19 Education Class: Patient will receive instruction regarding healthy food choices and eating behaviors identified as optimal when preparing for surgery, losing weight after surgery, and maintaining weight loss long-term. Patient will also receive instruction regarding the Bariatric Full Liquid diet following surgery and optimal post-operative high-protein supplement choices. Education class to be completed prior to surgery. Behaviors Accomplished: Visit # 3 Date: 12/29/2022 Weight: 131.4 kg (289 lb 9.6 oz), 7 lb weight loss since in office visit. Behaviors that helped/hindered weight loss: helped--avoiding skipping meals, limiting added sugars, also making healthier choices Eating 3 meals/one snack Choose healthy foods Daily multivitamin Drink between meals Sip beverages slowly Eat slowly,chew well No high fat/fast foods 24 hour diet recall Breakfast: 1 shake (15 grams) with banana/strawberry Lunch: grilled chicken breast (6 oz), green beans Dinner: hamburger (6 oz) salad Snacks: none Fluids (liquid intake-oz): yesterday: at least 64 oz , 2 days ago: n/a , 3 days ago: n/a, 4 days ago: n/a, 5 days ago: n/a, 6 days ago:n/a, 7 days ago: n/a Alcohol/Caffeine/Sugar/Carbonation Beverages in Diet: 2-3 cups/day 1/2 caff coffee or decaf. Sprite d/t illness. Occasional sweet tea. One beer every 2 weeks. Protein (grams/day): yesterday: 141 grams, 2 days ago: n/a, 3 days ago: n/a, 4 days ago: n/a, 5 days ago: n/a, 6 days ago: n/a, 7 days ago: n/a Exercise: rae rodriguez--30 minutes, 3-4 days/week (breaking a sweat) Written information provided and reviewed: As noted Preop patient currently in month #3 of supervised diet and exercise. Today, she presents with a reported 7 pound weight loss. Over the last few months, she has been able to limit dining out to 1-2 times per week, taking a daily multivitamin, is in the process of weaning off of caffeine, has started to maintain a food journal and has also incorporated an exercise routine as noted above. Upon review of food journal, she had not been consistently maintaining a food journal-she was ill and did not keep track during that time. Also note that her protein intake is exceeding goal, counseled patient on limiting protein portions to 3 ounces per meal. Also reviewed need to discontinue caffeine/alcohol/sugar containing beverages. She is doing well with exercise, has been advised to increase as tolerated to goal of 5 days/week. Goals discontinue caffeine/alcohol/sugar beverages eat 3 meals daily - protein source at each meal endorse in formal exercise 5-7 days per week for 30 min (per sesion) or 150 min of activity/week journal daily and bring to all appointments limit protein portions to 3 oz/meal The patient meets NIH guidelines for weight loss surgery and has been thoroughly evaluated and educated on good dietary practices. Patient is capable of following these guidelines pre-and post-surgically. From nutrition standpoint, the has partially met nutrition clearance and will need to demonstrate maintaining food journal at least 5 days/week--calculate/track/meet protein/fluid goals at least 5 days/week (limit protein portion to 3oz/meal), discontinue caffeine/sugar/alcohol containing beverages and increase exercise as tolerated to 5 days/week or 150 minutes/week to receive nutrition clearance. Plan: follow up 1 month. Total time in direct patient contact = 26 min. Greater than 50% of the time was spent in counseling and/or coordination of care. Hien Marinelli, ELVIRA This note was generated using voice recognition technology and may contain grammatical errors. [facility] 12-14-2022 Miscellaneous Notes Spoke with patient and explained I would need to cancel and reschedule her initial psychological appointment with Dr. Meade on 02.04, patient stated she understood. Rescheduled to 02.[address] Ciro Che documented in this encounter [facility] 12-01-2022 Note HNO ID: [id number] Author: RT Fiordaliza(R) Service: Nuclear Medicine Author Type: Technologist Type: Progress Notes Filed: 12/01/2022 11:28 AM Note Text: Radiology Service Progress Note PATIENT NAME: Mariia Coughlin DATE OF SERVICE: December 01, 2022 TIME: 11:22 AM PATIENT IDENTITY VERIFICATION COMPLETED USING TWO (2) IDENTIFIERS: Name and Date of confirmed by patient verbally. FALL SCREENING: Has the patient had 2 falls in the last year or 1 fall with injury or currently using an Ambulatory Assistive Device (Walker, Cane, Wheelchair, Crutches, etc.)? No PATIENT GENDER DATA: Female. status: : No status: NO. PATIENT RELEVANT IMPLANT DATA REVIEWED: Not Applicable RADIOLOGY DEPARTMENT: General X-ray: Exam(s) Completed: Chest X-Ray PERIPHERAL IV DATA: Not applicable SIGNED BY: RT Fiordaliza(R) December 01, 2022 11:22 AM [facility] 2022 Note HNO ID: [id number] Author: Camila Saul RD Service: ? Author Type: Registered Dietitian Type: Progress Notes Filed: 2022 2:27 PM Note Text: [facility] - Bariatric Department New Patient Nutritional Assessment--Shared Nutrition Appointment Visit conducted via zoom d/t COVID 19 Mariia Coughlin Month 12/20 Anthropometrics: 37 year old female Ht 168.9 cm (5' 6.5 ) Wt 132.5 kg (292 lb) LMP 12/13/2011 BMI 46.42 kg/m? Percent Body Fat: deferred Medical History: PAST MEDICAL HISTORY Diagnosis Date HTN (hypertension) Mixed hyperlipidemia NEGATIVE MEDICAL HISTORY Medications: Current Outpatient Medications Medication Sig Dispense Refill ubidecarenone Q-10 (COENZYME Q-10) 10 mg cap Take by mouth. (Patient not taking: Reported on 11/10/2022) rosuvastatin (CRESTOR) 5 mg tablet Take 5 mg by mouth once daily. hydroCHLOROthiazide (HYDRODIURIL, ESIDRIX) 12.5 mg tablet Take 12.5 mg by mouth once daily. norgestimate 0.25 mg-ethinyl estradiol 35 mcg (SPRINTEC) 0.25-35 mg-mcg ORAL per tablet Take 1 tablet by mouth once daily. (Patient not taking: Reported on 11/10/2022) 1 Package 2 No current facility-administered medications for this visit. Allergies: Patient has no known allergies. Weight History: See surgeon notes from initial program visit. Dietary Intake: 24 hour recall provided Breakfast- 2 pancakes with blueberries (No syrup) Lunch- None Dinner- Ground sausage with hash browns and eggs Snacks- Carrots and peppers with gambian dressing Limitations of keeping a food record: None Food Allergies: None Frequency of fried foods: 3 times per month Frequency of high sugar foods: 3-4 times per week Frequency of snack-type foods: 3-4 times per week Frequency of caffeine/carbonated beverages: Coffee 1-2 times per day/Carbonated beverages 1-2 times per month Frequency of dining out meals: 3-4 times per week Physical Activity: Physical conditions limiting activity: None Current activity: Smart hoop 30 minutes per day READINESS TO LEARN Cognitive ability: Alert and oriented Motivation to learn: Eager Interested Family support: Unable to assess - Family not present Instruction provided to: Patient Patient learns best by: Multiple Methods Factors affecting learning: None Physical limitations affecting learning: None Nutrition Diagnosis: Overweight/obesity related to food/nutrition knowledge deficit as evidenced by BMI above standard range for age and gender, patient reports high frequency of snack like foods/high sugar foods within diet, see above 24-hour recall. Nutrition Intervention: Start to follow meal guidelines provided and work toward goals outlined below. Nutrition Monitoring AND Evaluation: Monthly supervised wt loss to evaluate weight loss efforts with pre-op goal weight of 286# and patient protein goal of 60-90g. Required months of supervised weight loss per insurance: per [facility] notes Written information provided and reviewed: Healthy plate/menus Behavior Checklist Journal Chair Exercises What's in season h/o The setting was a shared nutrition appointment in which she was seen individually with group observers. Consent to be seen in a group setting was obtained virtually. Goals reviewed and outlined below. [facility] Patient agreement was reviewed and Mariia Coughlin received a copy of the patient agreement. The patient is aware by receiving this agreement, this accepts their understanding of the agreement and that surgery may not be recommended for medical and behavorial health reasons. Goals: Goals formal exercise 2-7x/week as tolerated, goal of 30 minutes Have 3 meals a day-protein source with each meal journal daily and bring to all appointments Total time in direct patient contact = 30 min. Greater than 50% of the time was spent in counseling and/or coordination of care. Camila Saul RD This note was generated using voice recognition technology and may contain grammatical errors. [facility] 2022 History of Present illness Narrative [facility] - Bariatric Department New Patient Nutritional Assessment--Shared Nutrition Appointment Visit conducted via zoom d/t AURELIAID 19 Mariia Coughlin Month 12/20 Anthropometrics: 37 year old female Ht 168.9 cm (5' 6.5 ) Wt 132.5 kg (292 lb) LMP 12/13/2011 BMI 46.42 kg/m Percent Body Fat: deferred Medical History: PAST MEDICAL HISTORY Diagnosis Date HTN (hypertension) Mixed hyperlipidemia NEGATIVE MEDICAL HISTORY Medications: Current Outpatient Medications Medication Sig Dispense Refill ubidecarenone Q-10 (COENZYME Q-10) 10 mg cap Take by mouth. (Patient not taking: Reported on 11/10/2022) rosuvastatin (CRESTOR) 5 mg tablet Take 5 mg by mouth once daily. hydroCHLOROthiazide (HYDRODIURIL, ESIDRIX) 12.5 mg tablet Take 12.5 mg by mouth once daily. norgestimate 0.25 mg-ethinyl estradiol 35 mcg (SPRINTEC) 0.25-35 mg-mcg ORAL per tablet Take 1 tablet by mouth once daily. (Patient not taking: Reported on 11/10/2022) 1 Package 2 No current facility-administered medications for this visit. Allergies: Patient has no known allergies. Weight History: See surgeon notes from initial program visit. Dietary Intake: 24 hour recall provided Breakfast- 2 pancakes with blueberries (No syrup) Lunch- None Dinner- Ground sausage with hash browns and eggs Snacks- Carrots and peppers with gambian dressing Limitations of keeping a food record: None Food Allergies: None Frequency of fried foods: 3 times per month Frequency of high sugar foods: 3-4 times per week Frequency of snack-type foods: 3-4 times per week Frequency of caffeine/carbonated beverages: Coffee 1-2 times per day/Carbonated beverages 1-2 times per month Frequency of dining out meals: 3-4 times per week Physical Activity: Physical conditions limiting activity: None Current activity: Smart hoop 30 minutes per day READINESS TO LEARN Cognitive ability: Alert and oriented Motivation to learn: Eager Interested Family support: Unable to assess - Family not present Instruction provided to: Patient Patient learns best by: Multiple Methods Factors affecting learning: None Physical limitations affecting learning: None Nutrition Diagnosis: Overweight/obesity related to food/nutrition knowledge deficit as evidenced by BMI above standard range for age and gender, patient reports high frequency of snack like foods/high sugar foods within diet, see above 24-hour recall. Nutrition Intervention: Start to follow meal guidelines provided and work toward goals outlined below. Nutrition Monitoring & Evaluation: Monthly supervised wt loss to evaluate weight loss efforts with pre-op goal weight of 286# and patient protein goal of 60-90g. Required months of supervised weight loss per insurance: per [employer] notes Written information provided and reviewed: Healthy plate/menus Behavior Checklist Journal Chair Exercises What's in season h/o The setting was a shared nutrition appointment in which she was seen individually with group observers. Consent to be seen in a group setting was obtained virtually. Goals reviewed and outlined below. [facility] Patient agreement was reviewed and Mariia Coughlin received a copy of the patient agreement. The patient is aware by receiving this agreement, this accepts their understanding of the agreement and that surgery may not be recommended for medical and behavorial health reasons. Goals: Goals formal exercise 2-7x/week as tolerated, goal of 30 minutes Have 3 meals a day-protein source with each meal journal daily and bring to all appointments Total time in direct patient contact = 30 min. Greater than 50% of the time was spent in counseling and/or coordination of care. Camila Saul RD This note was generated using voice recognition technology and may contain grammatical errors. documented in this encounter [facility] 11-18-2022 Note HNO ID: [id number] Author: Katelin Slade RDMS Service: ? Author Type: Supervisor Cell Room Type: Progress Notes Filed: 11/18/2022 10:28 AM Note Text: Radiology Service Progress Note PATIENT NAME: Mariia Coughlin DATE OF SERVICE: November 18, 2022 TIME: 10:28 AM PATIENT IDENTITY VERIFICATION COMPLETED USING TWO (2) IDENTIFIERS: Name and Date of confirmed by patient verbally. FALL SCREENING: Has the patient had 2 falls in the last year or 1 fall with injury or currently using an Ambulatory Assistive Device (Walker, Cane, Wheelchair, Crutches, etc.)? No PATIENT GENDER DATA: Female. status: : No status: NO. PATIENT RELEVANT IMPLANT DATA REVIEWED: Not Applicable RADIOLOGY DEPARTMENT: Ultrasound PERIPHERAL IV DATA: Not applicable SIGNED BY: Katelin Slade RDMS RVT November 18, 2022 10:28 AM [facility] 11-18-2022 History of Present illness Narrative Radiology Service Progress Note PATIENT NAME: Mariia Coughlin DATE OF SERVICE: November 18, 2022 TIME: 10:28 AM PATIENT IDENTITY VERIFICATION COMPLETED USING TWO (2) IDENTIFIERS: Name and Date of confirmed by patient verbally. FALL SCREENING: Has the patient had 2 falls in the last year or 1 fall with injury or currently using an Ambulatory Assistive Device (Walker, Cane, Wheelchair, Crutches, etc.)? No PATIENT GENDER DATA: Female. status: : No status: NO. PATIENT RELEVANT IMPLANT DATA REVIEWED: Not Applicable RADIOLOGY DEPARTMENT: Ultrasound PERIPHERAL IV DATA: Not applicable SIGNED BY: Katelin Slade RDMS RVT November 18, 2022 10:28 AM documented in this encounter [facility] 11-11-2022 Note HNO ID: [id number] Author: SHAWN Fritz) Service: Radiology Author Type: Technologist Type: Progress Notes Filed: 11/11/2022 10:07 AM Note Text: Summary: upper GI Radiology Service Progress Note PATIENT NAME: Mariia Coughlin DATE OF SERVICE: November 11, 2022 TIME: 10:07 AM PATIENT IDENTITY VERIFICATION COMPLETED USING TWO (2) IDENTIFIERS: Name and Date of confirmed by patient verbally. FALL SCREENING: Has the patient had 2 falls in the last year or 1 fall with injury or currently using an Ambulatory Assistive Device (Walker, Cane, Wheelchair, Crutches, etc.)? No PATIENT GENDER DATA: Female. status: : No status: N/A PATIENT RELEVANT IMPLANT DATA REVIEWED: Not Applicable RADIOLOGY DEPARTMENT: General X-ray: Exam(s) Completed: GI/ Procedure(s): Upper GI with barium contrast PERIPHERAL IV DATA: Not applicable SIGNED BY: RT Lam(R) November 11, 2022 10:07 AM [facility] 11-11-2022 History of Present illness Narrative Summary: upper GI Radiology Service Progress Note PATIENT NAME: Mariia Coughlin DATE OF SERVICE: November 11, 2022 TIME: 10:07 AM PATIENT IDENTITY VERIFICATION COMPLETED USING TWO (2) IDENTIFIERS: Name and Date of confirmed by patient verbally. FALL SCREENING: Has the patient had 2 falls in the last year or 1 fall with injury or currently using an Ambulatory Assistive Device (Walker, Cane, Wheelchair, Crutches, etc.)? No PATIENT GENDER DATA: Female. status: : No status: N/A PATIENT RELEVANT IMPLANT DATA REVIEWED: Not Applicable RADIOLOGY DEPARTMENT: General X-ray: Exam(s) Completed: GI/ Procedure(s): Upper GI with barium contrast PERIPHERAL IV DATA: Not applicable SIGNED BY: RT Lam(R) November 11, 2022 10:07 AM documented in this encounter [facility] 11-10-2022 Note HNO ID: [id number] Author: Lynne Talavera MD Service: ? Author Type: Physician Type: Progress Notes Filed: 11/10/2022 10:37 AM Note Text: BARIATRIC SURGERY NEW PATIENT CONSULTATION HISTORY AND PHYSICAL Date: November 10, 2022 Time: 10:06 AM Mariia Coughlin is a 36 year old year old female with obesity (Body mass index is 47.09 kg/m?.), HTN (HCTZ) and HLD (Crestor) who presents to the clinic today for consideration of bariatric surgery. This patient has struggled with weight related concerns for most of their life. They have attempted weight loss with diet and exercise programs - [employer] , OTC diet pills, a weight loss program through her chiropractor, weight watchers, and others without terminal operator success. The most weight they have lost was 40 through the program offered by her Chiropractor, but she was not able to maintain the program due to cost and then re-gained it. They attribute weight gain to transitioning to a more sedentary job - after which she gained 50 pounds. The heaviest adult weight they can recall was 296 pounds - which is her weight today and the healthiest adult weight they can recall was 175 pounds in her early 20s. They endorse a history of HTN and HLD for which she is on medications. She was diagnosed with both of these and started medications in September of 2022. She denies daily Heartburn symptoms. She reports rare symptoms with clear food triggers - which occur at most once per month. She has never taken any medications for reflux. She denies current use of NSAIDS. She denies any personal history of MO, DM, CVA or other health concerns. Her mother was a diabetic. Social: former smoker - quit 06/2022 - smoked 1/2 ppd x 15 years; seldom etoh use; denies use of marijuana or illicit drugs. 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 PSHx: excision of cyst from right wrist PAST MEDICAL HISTORY Diagnosis Date HTN (hypertension) Mixed hyperlipidemia NEGATIVE MEDICAL HISTORY PAST SURGICAL HISTORY Procedure Laterality Date CYST/MOLE REMOVAL wrist cyst removal ESSURE DEVICE 2011 NONE FAMILY HISTORY Problem Relation Age of Onset Hypertension Mother Arthritis Maternal Grandmother Prostate Cancer Paternal Grandfather Diabetes Maternal Grandfather Hypertension Father Lipids Mother Lipids Father Social History Tobacco Use Smoking status: Former Packs/day: 0.50 Years: 15.00 Pack years: 7.50 Types: Cigarettes Quit date: 06/2022 Years since quittin.4 Smokeless tobacco: Never Vaping Use Vaping Use: Never used Substance Use Topics Alcohol use: Not Currently Comment: OCCASIONALLY, BUT NOT WHILE Drug use: No Current Outpatient Medications Medication Sig rosuvastatin (CRESTOR) 5 mg tablet Take 5 mg by mouth once daily. hydroCHLOROthiazide (HYDRODIURIL, ESIDRIX) 12.5 mg tablet Take 12.5 mg by mouth once daily. ubidecarenone Q-10 (COENZYME Q-10) 10 mg cap Take by mouth. (Patient not taking: Reported on 11/10/2022) norgestimate 0.25 mg-ethinyl estradiol 35 mcg (SPRINTEC) 0.25-35 mg-mcg ORAL per tablet Take 1 tablet by mouth once daily. (Patient not taking: Reported on 11/10/2022) No current facility-administered medications for this visit. ALLERGIES No Known Allergies Review of Systems Constitutional: Negative for chills, diaphoresis, fever, malaise/fatigue and weight loss. HENT: Negative for congestion, hearing loss, nosebleeds, sinus pain, sore throat and tinnitus. Eyes: Negative for blurred vision, double vision, pain and redness. Respiratory: Negative for cough, hemoptysis, sputum production, shortness of breath and wheezing. Cardiovascular: Positive for leg swelling (mild; present at the end of the day). Negative for chest pain, palpitations, orthopnea and PND. Gastrointestinal: Negative for abdominal pain, blood in stool, constipation, diarrhea, heartburn, nausea and vomiting. Genitourinary: Negative for dysuria, frequency, hematuria and urgency. Musculoskeletal: Positive for back pain and neck pain. Negative for falls, joint pain and myalgias. Skin: Negative for itching and rash. Neurological: Negative for dizziness, speech change, focal weakness, seizures, loss of consciousness, weakness and headaches. Endo/Heme/Allergies: Does not bruise/bleed easily. Psychiatric/Behavioral: Negative for depression, hallucinations, memory loss, substance abuse and suicidal ideas. The patient is not nervous/anxious and does not have insomnia. Physical Exam Vitals reviewed. Constitutional: Appearance: Normal appearance. She is obese. HENT: Head: Normocephalic and atraumatic. Eyes: Extraocular Movements: Extraocular movements intact. Conjunctiva/sclera: Conjunctivae normal. Pupils: Pupils are equal, round, and reactive to light. Cardiovascular: Rate and Rhythm: Normal rate. Pulmonary: Effort: Pulmonary effort is normal. No r (more content not included)... [facility] 10-13-2022 Miscellaneous Notes Fax PCP ref call into the program, Spoke to PT- sent [employer] link to setup, once setup will send seminar if PT completes out today then seminar needs complete by 10/27/22 documented in this encounter [facility] Diagnosis Class 3 severe obesity due to excess calories with serious comorbidity and body mass index (BMI) of 45.0 to 49.9 in adult (HCC)- Primary [facility]* Diagnosis Class 3 severe obesity due to excess calories with serious comorbidity and body mass index (BMI) of 45.0 to 49.9 in adult (HCC)- Primary Hypertension, unspecified type Hyperlipidemia, unspecified hyperlipidemia type NAFLD (nonalcoholic fatty liver disease) Other chronic nonalcoholic liver disease Calculus of gallbladder without cholecystitis without obstruction Calculus of gallbladder without mention of cholecystitis or obstruction [facility] Diagnosis APPOINTMENT CANCELLED- [facility] Diagnosis Dietary counseling and surveillance- Primary Dietary surveillance and counseling documented in this encounter [facility] note* Diagnosis Eating disorder, unspecified type [F50.9 (ICD-10-CM)]- Primary Morbid obesity (HCC) [E66.01 (ICD-10-CM)] Morbid obesity Psychological factors affecting medical condition [F54 (ICD-10-CM)] Psychic factors associated with diseases classified elsewhere documented in this encounter [facility] note* Diagnosis Class 3 severe obesity due to excess calories without serious comorbidity with body mass index (BMI) of 45.0 to 49.9 in adult (HCC) Preop pulmonary/respiratory exam Pre-operative respiratory examination documented in this encounter [facility] note* Diagnosis Class 3 severe obesity due to excess calories with serious comorbidity and body mass index (BMI) of 45.0 to 49.9 in adult (HCC)- Primary Hypertension, unspecified type NAFLD (nonalcoholic fatty liver disease) Other chronic nonalcoholic liver disease Calculus of gallbladder without cholecystitis without obstruction Calculus of gallbladder without mention of cholecystitis or obstruction [facility] Diagnosis Psychological factors affecting medical condition [F54 (ICD-10-CM)]- Primary Psychic factors associated with diseases classified elsewhere Morbid obesity (HCC) [E66.01 (ICD-10-CM)] Morbid obesity [facility]* Diagnosis Pre-operative cardiovascular examination- Primary Primary hypertension Unspecified essential hypertension Mixed hyperlipidemia Morbid obesity with BMI of 45.0-49.9, adult (HCC) Morbid obesity [facility]* Diagnosis Dietary counseling and surveillance- Primary Dietary surveillance and counseling [facility]* Diagnosis Class 3 severe obesity due to excess calories with serious comorbidity and body mass index (BMI) of 45.0 to 49.9 in adult (HCC)- Primary Hypertension, unspecified type NAFLD (nonalcoholic fatty liver disease) Other chronic nonalcoholic liver disease [facility]* Diagnosis Morbid obesity (HCC)- Primary Morbid obesity Morbid obesity (HCC) Morbid obesity [facility]* Diagnosis Class 3 severe obesity with serious comorbidity and body mass index (BMI) of 45.0 to 49.9 in adult, unspecified obesity type (HCC)- Primary Morbid obesity (HCC) Morbid obesity [facility]* Diagnosis Class 3 severe obesity with serious comorbidity and body mass index (BMI) of 45.0 to 49.9 in adult, unspecified obesity type (HCC)- Primary Morbid obesity (HCC) Morbid obesity [facility]* Diagnosis Morbid obesity (HCC) [E66.01 (ICD-10-CM)]- Primary Morbid obesity Pre-op testing Preoperative examination, unspecified Primary hypertension Unspecified essential hypertension Mixed hyperlipidemia Morbid obesity (HCC) Morbid obesity [facility]* Diagnosis Dietary counseling and surveillance- Primary Dietary surveillance and counseling [facility]* Diagnosis S/P laparoscopic sleeve gastrectomy- Primary Bariatric surgery status Hypertension, unspecified type documented [facility]* Diagnosis Class 3 severe obesity due to excess calories with serious comorbidity and body mass index (BMI) of 45.0 to 49.9 in adult (HCC) documented in this encounter [facility] note* Diagnosis Class 3 severe obesity with serious comorbidity and body mass index (BMI) of 45.0 to 49.9 in adult, unspecified obesity type (HCC) documented in this encounter [facility]* Name Dates Details How to Access Health Informa tion Online using Patient Portal and [employer] Apps Indication:Nonsmoker Start:26-Mar-2021 Instruction Type:Patient Education Patient Instructions Indication:Nonsmoker Start:26-Mar-2021 Instruction Type:Provider Instructions for Treatment Patient Instructions Indication:Encounter for screening for other suspected endocrine disorder Start:16-Jan-2021 Instruction Type:Provider Instructions for Treatment How to Access Health Informa tion Online using Patient Portal and [employer] Apps Indication:Nonsmoker Start:16-Jan-2021 Instruction Type:Patient Education How to access health informa tion online Indication:BMI 40.0-44.9, adult Start:14-May-2019 Instruction Type:Patient Education How to access health informa tion online - Detail Indication:BMI 40.0-44.9, adult Start:14-May-2019 Instruction Type:Patient Education Patient Instructions Indication:BMI 40.0-44.9, adult Start:14-May-2019 Instruction Type:Provider Instructions for Treatment How to access health informa tion online Indication:BMI 40.0-44.9, adult Start:31-Jan-2019 Instruction Type:Patient Education How to access health informa tion online - Detail Indication:BMI 40.0-44.9, adult Start:31-Jan-2019 Instruction Type:Patient Education Patient Instructions Indication:BMI 40.0-44.9, adult Start:31-Jan-2019 Instruction Type:Provider Instructions for Treatment How to access health informa tion online Indication:BMI 40.0-44.9, adult Start:17-Jan-2019 Instruction Type:Patient Education How to access health informa tion online - Detail Indication:BMI 40.0-44.9, adult Start:17-Jan-2019 Instruction Type:Patient Education Patient Instructions Indication:BMI 40.0-44.9, adult Start:17-Jan-2019 Instruction Type:Provider Instructions for Treatment [facility] Work Phone: [employer]* Name Dates Details How to Access Health Informa tion Online using Patient Portal and [employer] Apps Indication:Nonsmoker Start:26-Mar-2021 Instruction Type:Patient Education Patient Instructions Indication:Nonsmoker Start:26-Mar-2021 Instruction Type:Provider Instructions for Treatment Patient Instructions Indication:Encounter for screening for other suspected endocrine disorder Start:16-Jan-2021 Instruction Type:Provider Instructions for Treatment How to Access Health Informa tion Online using Patient Portal and [employer] Apps Indication:Nonsmoker Start:16-Jan-2021 Instruction Type:Patient Education How to access health informa tion online Indication:BMI 40.0-44.9, adult Start:14-May-2019 Instruction Type:Patient Education How to access health informa tion online - Detail Indication:BMI 40.0-44.9, adult Start:14-May-2019 Instruction Type:Patient Education Patient Instructions Indication:BMI 40.0-44.9, adult Start:14-May-2019 Instruction Type:Provider Instructions for Treatment How to access health informa tion online Indication:BMI 40.0-44.9, adult Start:31-Jan-2019 Instruction Type:Patient Education How to access health informa tion online - Detail Indication:BMI 40.0-44.9, adult Start:31-Jan-2019 Instruction Type:Patient Education Patient Instructions Indication:BMI 40.0-44.9, adult Start:31-Jan-2019 Instruction Type:Provider Instructions for Treatment How to access health informa tion online Indication:BMI 40.0-44.9, adult Start:17-Jan-2019 Instruction Type:Patient Education How to access health informa tion online - Detail Indication:BMI 40.0-44.9, adult Start:17-Jan-2019 Instruction Type:Patient Education Patient Instructions Indication:BMI 40.0-44.9, adult Start:17-Jan-2019 Instruction Type:Provider Instructions for Treatment [facility]; [facility] Work Phone: instructions* Name Dates Details Patient Instructions Indication:Sebaceous cyst Start:03-Apr-2021 Instruction Type:Provider Instructions for Treatment How to Access Health Informa tion Online using Patient Portal and [employer] Indication:Sebaceous cyst Start:03-Apr-2021 Instruction Type:Patient Education How to Access Health Informa tion Online using Patient Portal and [employer] Indication:Nonsmoker Start:26-Mar-2021 Instruction Type:Patient Education Patient Instructions Indication:Nonsmoker Start:26-Mar-2021 Instruction Type:Provider Instructions for Treatment Patient Instructions Indication:Encounter for screening for other suspected endocrine disorder Start:16-Jan-2021 Instruction Type:Provider Instructions for Treatment How to Access Health Informa tion Online using Patient Portal and [employer] Indication:Nonsmoker Start:16-Jan-2021 Instruction Type:Patient Education How to access health informa tion online Indication:BMI 40.0-44.9, adult Start:14-May-2019 Instruction Type:Patient Education How to access health informa tion online - Detail Indication:BMI 40.0-44.9, adult Start:14-May-2019 Instruction Type:Patient Education Patient Instructions Indication:BMI 40.0-44.9, adult Start:14-May-2019 Instruction Type:Provider Instructions for Treatment How to access health informa tion online Indication:BMI 40.0-44.9, adult Start:31-Jan-2019 Instruction Type:Patient Education How to access health informa tion online - Detail Indication:BMI 40.0-44.9, adult Start:31-Jan-2019 Instruction Type:Patient Education Patient Instructions Indication:BMI 40.0-44.9, adult Start:31-Jan-2019 Instruction Type:Provider Instructions for Treatment How to access health informa tion online Indication:BMI 40.0-44.9, adult Start:17-Jan-2019 Instruction Type:Patient Education How to access health informa tion online - Detail Indication:BMI 40.0-44.9, adult Start:17-Jan-2019 Instruction Type:Patient Education Patient Instructions Indication:BMI 40.0-44.9, adult Start:17-Jan-2019 Instruction Type:Provider Instructions for Treatment [facility]; [facility] Work Phone: Instructions* Name Dates Details Patient Instructions Indication:Sebaceous cyst Start:03-Apr-2021 Instruction Type:Provider Instructions for Treatment How to Access Health Informa tion Online using Patient Portal and [employer] Indication:Sebaceous cyst Start:03-Apr-2021 Instruction Type:Patient Education How to Access Health Informa tion Online using Patient Portal and [employer] Indication:Nonsmoker Start:26-Mar-2021 Instruction Type:Patient Education Patient Instructions Indication:Nonsmoker Start:26-Mar-2021 Instruction Type:Provider Instructions for Treatment Patient Instructions Indication:Encounter for screening for other suspected endocrine disorder Start:16-Jan-2021 Instruction Type:Provider Instructions for Treatment How to Access Health Informa tion Online using Patient Portal and [employer] Indication:Nonsmoker Start:16-Jan-2021 Instruction Type:Patient Education How to access health informa tion online Indication:BMI 40.0-44.9, adult Start:14-May-2019 Instruction Type:Patient Education How to access health informa tion online - Detail Indication:BMI 40.0-44.9, adult Start:14-May-2019 Instruction Type:Patient Education Patient Instructions Indication:BMI 40.0-44.9, adult Start:14-May-2019 Instruction Type:Provider Instructions for Treatment How to access health informa tion online Indication:BMI 40.0-44.9, adult Start:31-Jan-2019 Instruction Type:Patient Education How to access health informa tion online - Detail Indication:BMI 40.0-44.9, adult Start:31-Jan-2019 Instruction Type:Patient Education Patient Instructions Indication:BMI 40.0-44.9, adult Start:31-Jan-2019 Instruction Type:Provider Instructions for Treatment How to access health informa tion online Indication:BMI 40.0-44.9, adult Start:17-Jan-2019 Instruction Type:Patient Education How to access health informa tion online - Detail Indication:BMI 40.0-44.9, adult Start:17-Jan-2019 Instruction Type:Patient Education Patient Instructions Indication:BMI 40.0-44.9, adult Start:17-Jan-2019 Instruction Type:Provider Instructions for Treatment [facility]; [facility] Work Phone: Instructions* Name Dates Details Patient Instructions Indication:Encounter for general adult medical examination w/o abnormal findings (Renamed from Encounter for general adult medical examination without abnormal findings) Start:15-Sep-2022 Instruction Type:Provider Instructions for Treatment How to Access Health Informa tion Online using Patient Portal and [employer] Indication:Encounter for general adult medical examination w/o abnormal findings (Renamed from Encounter for general adult medical examination without abnormal findings) Start:15-Sep-2022 Instruction Type:Patient Education Patient Instructions Indication:Sebaceous cyst Start:03-Apr-2021 Instruction Type:Provider Instructions for Treatment How to Access Health Informa tion Online using Patient Portal and [employer] Indication:Sebaceous cyst Start:03-Apr-2021 Instruction Type:Patient Education How to Access Health Informa tion Online using Patient Portal and [employer] [employer] Indication:Nonsmoker Start:26-Mar-2021 Instruction Type:Patient Education Patient Instructions Indication:Nonsmoker Start:26-Mar-2021 Instruction Type:Provider Instructions for Treatment Patient Instructions Indication:Encounter for screening for other suspected endocrine disorder Start:16-Jan-2021 Instruction Type:Provider Instructions for Treatment How to Access Health Informa tion Online using Patient Portal and [employer]rd [employer] Indication:Nonsmoker Start:16-Jan-2021 Instruction Type:Patient Education How to access health informa tion online Indication:BMI 40.0-44.9, adult Start:14-May-2019 Instruction Type:Patient Education How to access health informa tion online - Detail Indication:BMI 40.0-44.9, adult Start:14-May-2019 Instruction Type:Patient Education Patient Instructions Indication:BMI 40.0-44.9, adult Start:14-May-2019 Instruction Type:Provider Instructions for Treatment How to access health informa tion online Indication:BMI 40.0-44.9, adult Start:31-Jan-2019 Instruction Type:Patient Education How to access health informa tion online - Detail Indication:BMI 40.0-44.9, adult Start:31-Jan-2019 Instruction Type:Patient Education Patient Instructions Indication:BMI 40.0-44.9, adult Start:31-Jan-2019 Instruction Type:Provider Instructions for Treatment How to access health informa tion online Indication:BMI 40.0-44.9, adult Start:17-Jan-2019 Instruction Type:Patient Education How to access health informa tion online - Detail Indication:BMI 40.0-44.9, adult Start:17-Jan-2019 Instruction Type:Patient Education Patient Instructions Indication:BMI 40.0-44.9, adult Start:17-Jan-2019 Instruction Type:Provider Instructions for Treatment [facility]; [facility] Work Phone: Instructions* Name Dates Details Patient Instructions Indication:Encounter for general adult medical examination w/o abnormal findings (Renamed from Encounter for general adult medical examination without abnormal findings) Start:15-Sep-2022 Instruction Type:Provider Instructions for Treatment How to Access Health Informa tion Online using Patient Portal and [employer] Indication:Former smoker Start:15-Sep-2022 Instruction Type:Patient Education Patient Instructions Indication:Sebaceous cyst Start:03-Apr-2021 Instruction Type:Provider Instructions for Treatment How to Access Health Informa tion Online using Patient Portal and [employer] Indication:Sebaceous cyst Start:03-Apr-2021 Instruction Type:Patient Education How to Access Health Informa tion Online using Patient Portal and [employer] Indication:Nonsmoker Start:26-Mar-2021 Instruction Type:Patient Education Patient Instructions Indication:Nonsmoker Start:26-Mar-2021 Instruction Type:Provider Instructions for Treatment Patient Instructions Indication:Encounter for screening for other suspected endocrine disorder Start:16-Jan-2021 Instruction Type:Provider Instructions for Treatment How to Access Health Informa tion Online using Patient Portal and [employer]rd [employer] Indication:Nonsmoker Start:16-Jan-2021 Instruction Type:Patient Education How to access health informa tion online Indication:BMI 40.0-44.9, adult Start:14-May-2019 Instruction Type:Patient Education How to access health informa tion online - Detail Indication:BMI 40.0-44.9, adult Start:14-May-2019 Instruction Type:Patient Education Patient Instructions Indication:BMI 40.0-44.9, adult Start:14-May-2019 Instruction Type:Provider Instructions for Treatment How to access health informa tion online Indication:BMI 40.0-44.9, adult Start:31-Jan-2019 Instruction Type:Patient Education How to access health informa tion online - Detail Indication:BMI 40.0-44.9, adult Start:31-Jan-2019 Instruction Type:Patient Education Patient Instructions Indication:BMI 40.0-44.9, adult Start:31-Jan-2019 Instruction Type:Provider Instructions for Treatment How to access health informa tion online Indication:BMI 40.0-44.9, adult Start:17-Jan-2019 Instruction Type:Patient Education How to access health informa tion online - Detail Indication:BMI 40.0-44.9, adult Start:17-Jan-2019 Instruction Type:Patient Education Patient Instructions Indication:BMI 40.0-44.9, adult Start:17-Jan-2019 Instruction Type:Provider Instructions for Treatment [facility]; [facility] Work Phone: Instructions* Name Dates Details Patient Instructions Indication:Encounter for general adult medical examination w/o abnormal findings (Renamed from Encounter for general adult medical examination without abnormal findings) Start:15-Sep-2022 Instruction Type:Provider Instructions for Treatment How to Access Health Informa tion Online using Patient Portal and [employer] Indication:Former smoker Start:15-Sep-2022 Instruction Type:Patient Education Patient Instructions Indication:Sebaceous cyst Start:03-Apr-2021 Instruction Type:Provider Instructions for Treatment How to Access Health Informa tion Online using Patient Portal and [facility] [employer] Indication:Sebaceous cyst Start:03-Apr-2021 Instruction Type:Patient Education How to Access Health Informa tion Online using Patient Portal and [employer] Apps Indication:Nonsmoker Start:26-Mar-2021 Instruction Type:Patient Education Patient Instructions Indication:Nonsmoker Start:26-Mar-2021 Instruction Type:Provider Instructions for Treatment Patient Instructions Indication:Encounter for screening for other suspected endocrine disorder Start:16-Jan-2021 Instruction Type:Provider Instructions for Treatment How to Access Health Informa tion Online using Patient Portal and [employer] Apps Indication:Nonsmoker Start:16-Jan-2021 Instruction Type:Patient Education How to access health informa tion online Indication:BMI 40.0-44.9, adult Start:14-May-2019 Instruction Type:Patient Education How to access health informa tion online - Detail Indication:BMI 40.0-44.9, adult Start:14-May-2019 Instruction Type:Patient Education Patient Instructions Indication:BMI 40.0-44.9, adult Start:14-May-2019 Instruction Type:Provider Instructions for Treatment How to access health informa tion online Indication:BMI 40.0-44.9, adult Start:31-Jan-2019 Instruction Type:Patient Education How to access health informa tion online - Detail Indication:BMI 40.0-44.9, adult Start:31-Jan-2019 Instruction Type:Patient Education Patient Instructions Indication:BMI 40.0-44.9, adult Start:31-Jan-2019 Instruction Type:Provider Instructions for Treatment How to access health informa tion online Indication:BMI 40.0-44.9, adult Start:17-Jan-2019 Instruction Type:Patient Education How to access health informa tion online - Detail Indication:BMI 40.0-44.9, adult Start:17-Jan-2019 Instruction Type:Patient Education Patient Instructions Indication:BMI 40.0-44.9, adult Start:17-Jan-2019 Instruction Type:Provider Instructions for Treatment [facility]; [facility] Work Phone: Instructions* Name Dates Details How to Access Health Informa tion Online using Patient Portal and [employer] Indication:Former smoker Start:29-Sep-2022 Instruction Type:Patient Education Patient Instructions Indication:Former smoker Start:29-Sep-2022 Instruction Type:Provider Instructions for Treatment Patient Instructions Indication:Encounter for general adult medical examination w/o abnormal findings (Renamed from Encounter for general adult medical examination without abnormal findings) Start:15-Sep-2022 Instruction Type:Provider Instructions for Treatment How to Access Health Informa tion Online using Patient Portal and [employer] Apps Indication:Former smoker Start:15-Sep-2022 Instruction Type:Patient Education Patient Instructions Indication:Sebaceous cyst Start:03-Apr-2021 Instruction Type:Provider Instructions for Treatment How to Access Health Informa tion Online using Patient Portal and [employer] Indication:Sebaceous cyst Start:03-Apr-2021 Instruction Type:Patient Education How to Access Health Informa tion Online using Patient Portal and [facility] [employer] Indication:Nonsmoker Start:26-Mar-2021 Instruction Type:Patient Education Patient Instructions Indication:Nonsmoker Start:26-Mar-2021 Instruction Type:Provider Instructions for Treatment Patient Instructions Indication:Encounter for screening for other suspected endocrine disorder Start:16-Jan-2021 Instruction Type:Provider Instructions for Treatment How to Access Health Informa tion Online using Patient Portal and [employer] Indication:Nonsmoker Start:16-Jan-2021 Instruction Type:Patient Education How to access health informa tion online Indication:BMI 40.0-44.9, adult Start:14-May-2019 Instruction Type:Patient Education How to access health informa tion online - Detail Indication:BMI 40.0-44.9, adult Start:14-May-2019 Instruction Type:Patient Education Patient Instructions Indication:BMI 40.0-44.9, adult Start:14-May-2019 Instruction Type:Provider Instructions for Treatment How to access health informa tion online Indication:BMI 40.0-44.9, adult Start:31-Jan-2019 Instruction Type:Patient Education How to access health informa tion online - Detail Indication:BMI 40.0-44.9, adult Start:31-Jan-2019 Instruction Type:Patient Education Patient Instructions Indication:BMI 40.0-44.9, adult Start:31-Jan-2019 Instruction Type:Provider Instructions for Treatment How to access health informa tion online Indication:BMI 40.0-44.9, adult Start:17-Jan-2019 Instruction Type:Patient Education How to access health informa tion online - Detail Indication:BMI 40.0-44.9, adult Start:17-Jan-2019 Instruction Type:Patient Education Patient Instructions Indication:BMI 40.0-44.9, adult Start:17-Jan-2019 Instruction Type:Provider Instructions for Treatment [facility]; [facility] Work Phone: Instructions* Name Dates Details How to Access Health Informa tion Online using Patient Portal and [employer] Indication:BMI 45.0-49.9, adult Start:27-Oct-2022 Instruction Type:Patient Education Patient Instructions Indication:BMI 45.0-49.9, adult Start:27-Oct-2022 Instruction Type:Provider Instructions for Treatment How to Access Health Informa tion Online using Patient Portal and [facility] [employer] Indication:Former smoker Start:29-Sep-2022 Instruction Type:Patient Education Patient Instructions Indication:Former smoker Start:29-Sep-2022 Instruction Type:Provider Instructions for Treatment Patient Instructions Indication:Encounter for general adult medical examination w/o abnormal findings (Renamed from Encounter for general adult medical examination without abnormal findings) Start:15-Sep-2022 Instruction Type:Provider Instructions for Treatment How to Access Health Informa tion Online using Patient Portal and [facility] [employer] Indication:Former smoker Start:15-Sep-2022 Instruction Type:Patient Education Patient Instructions Indication:Sebaceous cyst Start:03-Apr-2021 Instruction Type:Provider Instructions for Treatment How to Access Health Informa tion Online using Patient Portal and [facility] [employer] Indication:Sebaceous cyst Start:03-Apr-2021 Instruction Type:Patient Education How to Access Health Informa tion Online using Patient Portal and [employer] Indication:Nonsmoker Start:26-Mar-2021 Instruction Type:Patient Education Patient Instructions Indication:Nonsmoker Start:26-Mar-2021 Instruction Type:Provider Instructions for Treatment Patient Instructions Indication:Encounter for screening for other suspected endocrine disorder Start:16-Jan-2021 Instruction Type:Provider Instructions for Treatment How to Access Health Informa tion Online using Patient Portal and [employer] Indication:Nonsmoker Start:16-Jan-2021 Instruction Type:Patient Education How to access health informa tion online Indication:BMI 40.0-44.9, adult Start:14-May-2019 Instruction Type:Patient Education How to access health informa tion online - Detail Indication:BMI 40.0-44.9, adult Start:14-May-2019 Instruction Type:Patient Education Patient Instructions Indication:BMI 40.0-44.9, adult Start:14-May-2019 Instruction Type:Provider Instructions for Treatment How to access health informa tion online Indication:BMI 40.0-44.9, adult Start:31-Jan-2019 Instruction Type:Patient Education How to access health informa tion online - Detail Indication:BMI 40.0-44.9, adult Start:31-Jan-2019 Instruction Type:Patient Education Patient Instructions Indication:BMI 40.0-44.9, adult Start:31-Jan-2019 Instruction Type:Provider Instructions for Treatment How to access health informa tion online Indication:BMI 40.0-44.9, adult Start:17-Jan-2019 Instruction Type:Patient Education How to access health informa tion online - Detail Indication:BMI 40.0-44.9, adult Start:17-Jan-2019 Instruction Type:Patient Education Patient Instructions Indication:BMI 40.0-44.9, adult Start:17-Jan-2019 Instruction Type:Provider Instructions for Treatment [facility]; [facility] Work Phone: Instructions* Name Dates Details How to Access Health Informa tion Online using Patient Portal and [employer] Indication:BMI 45.0-49.9, adult Start:27-Oct-2022 Instruction Type:Patient Education Patient Instructions Indication:BMI 45.0-49.9, adult Start:27-Oct-2022 Instruction Type:Provider Instructions for Treatment How to Access Health Informa tion Online using Patient Portal and [employer] Indication:Former smoker Start:29-Sep-2022 Instruction Type:Patient Education Patient Instructions Indication:Former smoker Start:29-Sep-2022 Instruction Type:Provider Instructions for Treatment Patient Instructions Indication:Encounter for general adult medical examination w/o abnormal findings (Renamed from Encounter for general adult medical examination without abnormal findings) Start:15-Sep-2022 Instruction Type:Provider Instructions for Treatment How to Access Health Informa tion Online using Patient Portal and [employer] Indication:Former smoker Start:15-Sep-2022 Instruction Type:Patient Education Patient Instructions Indication:Sebaceous cyst Start:03-Apr-2021 Instruction Type:Provider Instructions for Treatment How to Access Health Informa tion Online using Patient Portal and [employer] Indication:Sebaceous cyst Start:03-Apr-2021 Instruction Type:Patient Education How to Access Health Informa tion Online using Patient Portal and [employer] Indication:Nonsmoker Start:26-Mar-2021 Instruction Type:Patient Education Patient Instructions Indication:Nonsmoker Start:26-Mar-2021 Instruction Type:Provider Instructions for Treatment Patient Instructions Indication:Encounter for screening for other suspected endocrine disorder Start:16-Jan-2021 Instruction Type:Provider Instructions for Treatment How to Access Health Informa tion Online using Patient Portal and [employer] Indication:Nonsmoker Start:16-Jan-2021 Instruction Type:Patient Education How to access health informa tion online Indication:BMI 40.0-44.9, adult Start:14-May-2019 Instruction Type:Patient Education How to access health informa tion online - Detail Indication:BMI 40.0-44.9, adult Start:14-May-2019 Instruction Type:Patient Education Patient Instructions Indication:BMI 40.0-44.9, adult Start:14-May-2019 Instruction Type:Provider Instructions for Treatment How to access health informa tion online Indication:BMI 40.0-44.9, adult Start:31-Jan-2019 Instruction Type:Patient Education How to access health informa tion online - Detail Indication:BMI 40.0-44.9, adult Start:31-Jan-2019 Instruction Type:Patient Education Patient Instructions Indication:BMI 40.0-44.9, adult Start:31-Jan-2019 Instruction Type:Provider Instructions for Treatment How to access health informa tion online Indication:BMI 40.0-44.9, adult Start:17-Jan-2019 Instruction Type:Patient Education How to access health informa tion online - Detail Indication:BMI 40.0-44.9, adult Start:17-Jan-2019 Instruction Type:Patient Education Patient Instructions Indication:BMI 40.0-44.9, adult Start:17-Jan-2019 Instruction Type:Provider Instructions for Treatment [facility]; [facility] Work Phone: Instructions* Name Dates Details Patient Instructions Indication:Preop examination (Renamed from Encounter for pre-operative examination) Start:20-Apr-2023 Instruction Type:Provider Instructions for Treatment How to Access Health Informa tion Online using Patient Portal and [employer] Indication:Preop examination (Renamed from Encounter for pre-operative examination) Start:20-Apr-2023 Instruction Type:Patient Education How to Access Health Informa tion Online using Patient Portal and [employer] Indication:BMI 45.0-49.9, adult Start:27-Oct-2022 Instruction Type:Patient Education Patient Instructions Indication:BMI 45.0-49.9, adult Start:27-Oct-2022 Instruction Type:Provider Instructions for Treatment How to Access Health Informa tion Online using Patient Portal and [employer] Indication:Former smoker Start:29-Sep-2022 Instruction Type:Patient Education Patient Instructions Indication:Former smoker Start:29-Sep-2022 Instruction Type:Provider Instructions for Treatment Patient Instructions Indication:Encounter for general adult medical examination w/o abnormal findings (Renamed from Encounter for general adult medical examination without abnormal findings) Start:15-Sep-2022 Instruction Type:Provider Instructions for Treatment How to Access Health Informa tion Online using Patient Portal and [employer] Indication:Former smoker Start:15-Sep-2022 Instruction Type:Patient Education Patient Instructions Indication:Sebaceous cyst Start:03-Apr-2021 Instruction Type:Provider Instructions for Treatment How to Access Health Informa tion Online using Patient Portal and [employer] Indication:Sebaceous cyst Start:03-Apr-2021 Instruction Type:Patient Education How to Access Health Informa tion Online using Patient Portal and [employer] Indication:Nonsmoker Start:26-Mar-2021 Instruction Type:Patient Education Patient Instructions Indication:Nonsmoker Start:26-Mar-2021 Instruction Type:Provider Instructions for Treatment Patient Instructions Indication:Encounter for screening for other suspected endocrine disorder Start:16-Jan-2021 Instruction Type:Provider Instructions for Treatment How to Access Health Informa tion Online using Patient Portal and [employer] Indication:Nonsmoker Start:16-Jan-2021 Instruction Type:Patient Education How to access health informa tion online Indication:BMI 40.0-44.9, adult Start:14-May-2019 Instruction Type:Patient Education How to access health informa tion online - Detail Indication:BMI 40.0-44.9, adult Start:14-May-2019 Instruction Type:Patient Education Patient Instructions Indication:BMI 40.0-44.9, adult Start:14-May-2019 Instruction Type:Provider Instructions for Treatment How to access health informa tion online Indication:BMI 40.0-44.9, adult Start:31-Jan-2019 Instruction Type:Patient Education How to access health informa tion online - Detail Indication:BMI 40.0-44.9, adult Start:31-Jan-2019 Instruction Type:Patient Education Patient Instructions Indication:BMI 40.0-44.9, adult Start:31-Jan-2019 Instruction Type:Provider Instructions for Treatment How to access health informa tion online Indication:BMI 40.0-44.9, adult Start:17-Jan-2019 Instruction Type:Patient Education How to access health informa tion online - Detail Indication:BMI 40.0-44.9, adult Start:17-Jan-2019 Instruction Type:Patient Education Patient Instructions Indication:BMI 40.0-44.9, adult Start:17-Jan-2019 Instruction Type:Provider Instructions for Treatment [facility]; [facility] Work Phone: Instructions* Name Dates Details Patient Instructions Indication:Preop examination (Renamed from Encounter for pre-operative examination) Start:20-Apr-2023 Instruction Type:Provider Instructions for Treatment How to Access Health Informa tion Online using Patient Portal and [employer] Indication:Preop examination (Renamed from Encounter for pre-operative examination) Start:20-Apr-2023 Instruction Type:Patient Education How to Access Health Informa tion Online using Patient Portal and [employer] Indication:BMI 45.0-49.9, adult Start:27-Oct-2022 Instruction Type:Patient Education Patient Instructions Indication:BMI 45.0-49.9, adult Start:27-Oct-2022 Instruction Type:Provider Instructions for Treatment How to Access Health Informa tion Online using Patient Portal and [employer] Indication:Former smoker Start:29-Sep-2022 Instruction Type:Patient Education Patient Instructions Indication:Former smoker Start:29-Sep-2022 Instruction Type:Provider Instructions for Treatment Patient Instructions Indication:Encounter for general adult medical examination w/o abnormal findings (Renamed from Encounter for general adult medical examination without abnormal findings) Start:15-Sep-2022 Instruction Type:Provider Instructions for Treatment How to Access Health Informa tion Online using Patient Portal and [employer] Indication:Former smoker Start:15-Sep-2022 Instruction Type:Patient Education Patient Instructions Indication:Sebaceous cyst Start:03-Apr-2021 Instruction Type:Provider Instructions for Treatment How to Access Health Informa tion Online using Patient Portal and [employer] Indication:Sebaceous cyst Start:03-Apr-2021 Instruction Type:Patient Education How to Access Health Informa tion Online using Patient Portal and [employer] Indication:Nonsmoker Start:26-Mar-2021 Instruction Type:Patient Education Patient Instructions Indication:Nonsmoker Start:26-Mar-2021 Instruction Type:Provider Instructions for Treatment Patient Instructions Indication:Encounter for screening for other suspected endocrine disorder Start:16-Jan-2021 Instruction Type:Provider Instructions for Treatment How to Access Health Informa tion Online using Patient Portal and [employer] Indication:Nonsmoker Start:16-Jan-2021 Instruction Type:Patient Education How to access health informa tion online Indication:BMI 40.0-44.9, adult Start:14-May-2019 Instruction Type:Patient Education How to access health informa tion online - Detail Indication:BMI 40.0-44.9, adult Start:14-May-2019 Instruction Type:Patient Education Patient Instructions Indication:BMI 40.0-44.9, adult Start:14-May-2019 Instruction Type:Provider Instructions for Treatment How to access health informa tion online Indication:BMI 40.0-44.9, adult Start:31-Jan-2019 Instruction Type:Patient Education How to access health informa tion online - Detail Indication:BMI 40.0-44.9, adult Start:31-Jan-2019 Instruction Type:Patient Education Patient Instructions Indication:BMI 40.0-44.9, adult Start:31-Jan-2019 Instruction Type:Provider Instructions for Treatment How to access health informa tion online Indication:BMI 40.0-44.9, adult Start:17-Jan-2019 Instruction Type:Patient Education How to access health informa tion online - Detail Indication:BMI 40.0-44.9, adult Start:17-Jan-2019 Instruction Type:Patient Education Patient Instructions Indication:BMI 40.0-44.9, adult Start:17-Jan-2019 Instruction Type:Provider Instructions for Treatment [facility]; [facility] Work Phone: reason for referral (narrative)* Diagnostic Procedure Only (Routine) - Closed Specialty Diagnoses / Procedures Referred By Contac t Referred To Contact XR IMAGING Diagnoses Class 3 severe obesity due to excess calories with serious comorbidity and body mass index (BMI) of 45.0 to 49.9 in adult (HCC) Procedures XR UPPER GI ROUTINE DOUBLE CONTRAST/AIR RADIOLOGIC EXAM UPR GI TR DOUBLE CONTRAST STUDY Lynne Talavera MD 1 [employer] [address] [place] [id number] Xr Imaging Referral ID Status Reason Start Date Expiration Date V isits Requested Visits Authorized [id number] Closed Auto-Generate d Referral 11/10/2022 12/10/2023 1 1 [facility] for visit Narrative* Diagnostic Procedure Only (Routine) - Closed Specialty Diagnoses / Procedures Referred By Contac t Referred To Contact XR IMAGING Diagnoses Class 3 severe obesity due to excess calories with serious comorbidity and body mass index (BMI) of 45.0 to 49.9 in adult (HCC) Procedures XR UPPER GI ROUTINE DOUBLE CONTRAST/AIR RADIOLOGIC EXAM UPR GI TRC DOUBLE CONTRAST STUDY Lynne Talavera MD 1 [employer] [address] [place] [address] Xr Imaging Referral ID Status Reason Start Date Expiration Date V isits Requested Visits Authorized [id number] Closed Auto-Generate d Referral 11/10/2022 12/10/2023 1 1 [facility] Family History Unknown Family Member Name Dates Details Father Comments:HTN, Hypercholester olemia Status:Active Mother Comments:HTN Status:Active Unknown Family Member Name Dates Details Father Comments:HTN, Hypercholester olemia Status:Active Mother Comments:HTN Status:Active Unknown Family Member Name Dates Details Father Comments:HTN, Hypercholester olemia Status:Active Mother Comments:HTN Status:Active Unknown Family Member Name Dates Details Father Comments:HTN, Hypercholester olemia Status:Active Mother Comments:HTN Status:Active Unknown Family Member Name Dates Details Father Comments:HTN, Hypercholester olemia Status:Active Mother Comments:HTN Status:Active Unknown Family Member Name Dates Details Father Comments:HTN, Hypercholester olemia Status:Active Mother Comments:HTN Status:Active Unknown Family Member Name Dates Details Father Comments:HTN, Hypercholester olemia Status:Active Mother Comments:HTN Status:Active Unknown Family Member Name Dates Details Father Comments:HTN, Hypercholester olemia Status:Active Mother Comments:HTN Status:Active Unknown Family Member Name Dates Details Father Comments:HTN, Hypercholester olemia Status:Active Mother Comments:HTN Status:Active Unknown Family Member Name Dates Details Father Comments:HTN, Hypercholester olemia Status:Active Mother Comments:HTN Status:Active Unknown Family Member Name Dates Details Father Comments:HTN, Hypercholester olemia Status:Active Mother Comments:HTN Status:Active Unknown Family Member Name Dates Details Father Comments:HTN, Hypercholester olemia Status:Active Mother Comments:HTN Status:Active Unknown Family Member Name Dates Details Father Comments:HTN, Hypercholester olemia Status:Active Mother Comments:HTN Status:Active Unknown Family Member Name Dates Details Father Comments:HTN, Hypercholester olemia Status:Active Mother Comments:HTN Status:Active Unknown Family Member Name Dates Details Father Comments:HTN, Hypercholester olemia Status:Active Mother Comments:HTN Status:Active Unknown Family Member Name Dates Details Father Comments:HTN, Hypercholester olemia Status:Active Mother Comments:HTN Status:Active Unknown Family Member Name Dates Details Father Comments:HTN, Hypercholester olemia Status:Active Mother Comments:HTN Status:Active Unknown Family Member Name Dates Details Father Comments:HTN, Hypercholester olemia Status:Active Mother Comments:HTN Status:Active Unknown Family Member Name Dates Details Father Comments:HTN, Hypercholester olemia Status:Active Mother Comments:HTN Status:Active Unknown Family Member Name Dates Details Father Comments:HTN, Hypercholester olemia Status:Active Mother Comments:HTN Status:Active Unknown Family Member Name Dates Details Father Comments:HTN, Hypercholester olemia Status:Active Mother Comments:HTN Status:Active Instructions Name Dates Details BMI 40.0-44.9, adult : How t o access health information online Indication:BMI 40.0-44.9, adult BMI 40.0-44.9, adult : How t o access health information online - Detail Indication:BMI 40.0-44.9, adult BMI 40.0-44.9, adult : Patie nt Instructions Indication:BMI 40.0-44.9, adult Name Dates Details BMI 40.0-44.9, adult : How t o access health information online Indication:BMI 40.0-44.9, adult BMI 40.0-44.9, adult : How t o access health information online - Detail Indication:BMI 40.0-44.9, adult BMI 40.0-44.9, adult : Patie nt Instructions Indication:BMI 40.0-44.9, adult Name Dates Details BMI 40.0-44.9, adult : How t o access health information online Indication:BMI 40.0-44.9, adult BMI 40.0-44.9, adult : How t o access health information online - Detail Indication:BMI 40.0-44.9, adult BMI 40.0-44.9, adult : Patie nt Instructions Indication:BMI 40.0-44.9, adult Name Dates Details BMI 40.0-44.9, adult : How t o access health information online Indication:BMI 40.0-44.9, adult BMI 40.0-44.9, adult : How t o access health information online - Detail Indication:BMI 40.0-44.9, adult BMI 40.0-44.9, adult : Patie nt Instructions Indication:BMI 40.0-44.9, adult Name Dates Details How to access health informa tion online Indication:BMI 40.0-44.9, adult Start:14-May-2019 Instruction Type:Patient Education How to access health informa tion online - Detail Indication:BMI 40.0-44.9, adult Start:14-May-2019 Instruction Type:Patient Education Patient Instructions Indication:BMI 40.0-44.9, adult Start:14-May-2019 Instruction Type:Provider Instructions for Treatment How to access health informa tion online Indication:BMI 40.0-44.9, adult Start:31-Jan-2019 Instruction Type:Patient Education How to access health informa tion online - Detail Indication:BMI 40.0-44.9, adult Start:31-Jan-2019 Instruction Type:Patient Education Patient Instructions Indication:BMI 40.0-44.9, adult Start:31-Jan-2019 Instruction Type:Provider Instructions for Treatment How to access health informa tion online Indication:BMI 40.0-44.9, adult Start:17-Jan-2019 Instruction Type:Patient Education How to access health informa tion online - Detail Indication:BMI 40.0-44.9, adult Start:17-Jan-2019 Instruction Type:Patient Education Patient Instructions Indication:BMI 40.0-44.9, adult Start:17-Jan-2019 Instruction Type:Provider Instructions for Treatment Name Dates Details BMI 40.0-44.9, adult : How t o access health information online Indication:BMI 40.0-44.9, adult BMI 40.0-44.9, adult : How t o access health information online - Detail Indication:BMI 40.0-44.9, adult BMI 40.0-44.9, adult : Patie nt Instructions Indication:BMI 40.0-44.9, adult Name Dates Details Patient Instructions Indication:Encounter for screening for other suspected endocrine disorder Start:16-Jan-2021 Instruction Type:Provider Instructions for Treatment How to Access Health Informa tion Online using Patient Portal and 3rd [employer] Apps Indication:Nonsmoker Start:16-Jan-2021 Instruction Type:Patient Education How to access health informa tion online Indication:BMI 40.0-44.9, adult Start:14-May-2019 Instruction Type:Patient Education How to access health informa tion online - Detail Indication:BMI 40.0-44.9, adult Start:14-May-2019 Instruction Type:Patient Education Patient Instructions Indication:BMI 40.0-44.9, adult Start:14-May-2019 Instruction Type:Provider Instructions for Treatment How to access health informa tion online Indication:BMI 40.0-44.9, adult Start:31-Jan-2019 Instruction Type:Patient Education How to access health informa tion online - Detail Indication:BMI 40.0-44.9, adult Start:31-Jan-2019 Instruction Type:Patient Education Patient Instructions Indication:BMI 40.0-44.9, adult Start:31-Jan-2019 Instruction Type:Provider Instructions for Treatment How to access health informa tion online Indication:BMI 40.0-44.9, adult Start:17-Jan-2019 Instruction Type:Patient Education How to access health informa tion online - Detail Indication:BMI 40.0-44.9, adult Start:17-Jan-2019 Instruction Type:Patient Education Patient Instructions Indication:BMI 40.0-44.9, adult Start:17-Jan-2019 Instruction Type:Provider Instructions for Treatment Name Dates Details Patient Instructions Indication:Encounter for screening for other suspected endocrine disorder Start:16-Jan-2021 Instruction Type:Provider Instructions for Treatment How to Access Health Informa tion Online using Patient Portal and [employer] Apps Indication:Nonsmoker Start:16-Jan-2021 Instruction Type:Patient Education How to access health informa tion online Indication:BMI 40.0-44.9, adult Start:14-May-2019 Instruction Type:Patient Education How to access health informa tion online - Detail Indication:BMI 40.0-44.9, adult Start:14-May-2019 Instruction Type:Patient Education Patient Instructions Indication:BMI 40.0-44.9, adult Start:14-May-2019 Instruction Type:Provider Instructions for Treatment How to access health informa tion online Indication:BMI 40.0-44.9, adult Start:31-Jan-2019 Instruction Type:Patient Education How to access health informa tion online - Detail Indication:BMI 40.0-44.9, adult Start:31-Jan-2019 Instruction Type:Patient Education Patient Instructions Indication:BMI 40.0-44.9, adult Start:31-Jan-2019 Instruction Type:Provider Instructions for Treatment How to access health informa tion online Indication:BMI 40.0-44.9, adult Start:17-Jan-2019 Instruction Type:Patient Education How to access health informa tion online - Detail Indication:BMI 40.0-44.9, adult Start:17-Jan-2019 Instruction Type:Patient Education Patient Instructions Indication:BMI 40.0-44.9, adult Start:17-Jan-2019 Instruction Type:Provider Instructions for Treatment Name Dates Details Patient Instructions Indication:Encounter for screening for other suspected endocrine disorder Start:5-Mar-2021 Instruction Type:Provider Instructions for Treatment How to Access Health Informa tion Online using Patient Portal and 3rd [employer] Apps Indication:Nonsmoker Start:16-Jan-2021 Instruction Type:Patient Education How to access health informa tion online Indication:BMI 40.0-44.9, adult Start:14-May-2019 Instruction Type:Patient Education How to access health informa tion online - Detail Indication:BMI 40.0-44.9, adult Start:14-May-2019 Instruction Type:Patient Education Patient Instructions Indication:BMI 40.0-44.9, adult Start:14-May-2019 Instruction Type:Provider Instructions for Treatment How to access health informa tion online Indication:BMI 40.0-44.9, adult Start:31-Jan-2019 Instruction Type:Patient Education How to access health informa tion online - Detail Indication:BMI 40.0-44.9, adult Start:31-Jan-2019 Instruction Type:Patient Education Patient Instructions Indication:BMI 40.0-44.9, adult Start:31-Jan-2019 Instruction Type:Provider Instructions for Treatment How to access health informa tion online Indication:BMI 40.0-44.9, adult Start:17-Jan-2019 Instruction Type:Patient Education How to access health informa tion online - Detail Indication:BMI 40.0-44.9, adult Start:17-Jan-2019 Instruction Type:Patient Education Patient Instructions Indication:BMI 40.0-44.9, adult Start:17-Jan-2019 Instruction Type:Provider Instructions for Treatment Summary Purpose Advance Directives Latest Code Status on File Code Status Date Activated Date Inactivated Comments Full Code 04/26/2023 6:06 PM 04/27/2023 7:31 PM Full Code Order Discussed With: Patient Latest Code Status on File Code Status Date Activated Date Inactivated Comments Full Code 04/26/2023 6:06 PM 04/27/2023 7:31 PM Question Answer Comments Full Code Order Discussed With: Patient Latest Code Status on File Code Status Date Activated Date Inactivated Comments Full Code 04/26/2023 6:06 PM 04/27/2023 7:31 PM Question Answer Comments Full Code Order Discussed With: Patient Reason for Referral Specialty Diagnoses / Procedures Referred By Contac t Referred To Contact Cardiology Diagnoses Class 3 severe obesity due to excess calories with serious comorbidity and body mass index (BMI) of 45.0 to 49.9 in adult ([facility]) Hypertension, unspecified type Hyperlipidemia, unspecified hyperlipidemia type Procedures CONSULT TO CARDIOLOGY OFFICE/OUTPATIENT NEW HIGH MDM 60-74 MINUTES Jailyn Tyson APRN.CNP 1 [facility] [address] [place] [id number] Referral ID Status Reason Start Date Expiration Date Visits Requested Visits Authorized [id number] Authorized PCP Requested Referral 01/05/2023 04/05/2023 1 1 Specialty Diagnoses / Procedures Referred By Contac t Referred To Contact Diagnoses Morbid obesity (HCC) Procedures CONSULT TO PRE-SURGICAL TESTING (AG) Lynne Talavera MD [address] [address] Referral ID Status Reason Start Date Expiration Date Visits Requested Visits Authorized [id number] Ref Not Required PCP Requested Referral 04/12/2023 07/11/2023 1 1 Specialty Diagnoses / Procedures Referred By Contac t Referred To Contact US IMAGING Diagnoses Class 3 severe obesity due to excess calories with serious comorbidity and body mass index (BMI) of 45.0 to 49.9 in adult (HCC) Procedures US ABD RT UPPER QUADRANT US ABDOMINAL REAL TIME W/IMAGE LIMITED Lynne Talavera MD [address] [address] [place] [address] Referral ID Status Reason Start Date Expiration Date V isits Requested Visits Authorized [id number] Closed Auto-Generate d Referral 11/18/2022 11/13/2023 1 1 Additional Source Comments Source Comments (unrecognize d section and content) In the event this informatio n is protected by the Federal Confidentiality of Alcohol and Drug Abuse Patient Records regulations: The Federal rules restrict any use of the information to criminally investigate or prosecute any alcohol or drug abuse patient.[facility] the event this information is protected by the Federal Confidentiality of Alcohol and Drug Abuse Patient Records regulations: The Federal rules restrict any use of the information to criminally investigate or prosecute any alcohol or drug abuse patient.[facility] HospitalIn the event this information is protected by the Federal Confidentiality of Alcohol and Drug Abuse Patient Records regulations: The Federal rules restrict any use of the information to criminally investigate or prosecute any alcohol or drug abuse patient.[facility] HospitalIn the event this information is protected by the Federal Confidentiality of Alcohol and Drug Abuse Patient Records regulations: The Federal rules restrict any use of the information to criminally investigate or prosecute any alcohol or drug abuse patient.[facility] HospitalIn the event this information is protected by the Federal Confidentiality of Alcohol and Drug Abuse Patient Records regulations: The Federal rules restrict any use of the information to criminally investigate or prosecute any alcohol or drug abuse patient.[facility] HospitalIn the event this information is protected by the Federal Confidentiality of Alcohol and Drug Abuse Patient Records regulations: The Federal rules restrict any use of the information to criminally investigate or prosecute any alcohol or drug abuse patient.[facility] HospitalIn the event this information is protected by the Federal Confidentiality of Alcohol and Drug Abuse Patient Records regulations: The Federal rules restrict any use of the information to criminally investigate or prosecute any alcohol or drug abuse patient.[facility] HospitalIn the event this information is protected by the Federal Confidentiality of Alcohol and Drug Abuse Patient Records regulations: The Federal rules restrict any use of the information to criminally investigate or prosecute any alcohol or drug abuse patient.[facility] HospitalIn the event this information is protected by the Federal Confidentiality of Alcohol and Drug Abuse Patient Records regulations: The Federal rules restrict any use of the information to criminally investigate or prosecute any alcohol or drug abuse patient.[facility] HospitalIn the event this information is protected by the Federal Confidentiality of Alcohol and Drug Abuse Patient Records regulations: The Federal rules restrict any use of the information to criminally investigate or prosecute any alcohol or drug abuse patient.[facility] HospitalIn the event this information is protected by the Federal Confidentiality of Alcohol and Drug Abuse Patient Records regulations: The Federal rules restrict any use of the information to criminally investigate or prosecute any alcohol or drug abuse patient.[facility] HospitalIn the event this information is protected by the Federal Confidentiality of Alcohol and Drug Abuse Patient Records regulations: The Federal rules restrict any use of the information to criminally investigate or prosecute any alcohol or drug abuse patient.[facility] HospitalIn the event this information is protected by the Federal Confidentiality of Alcohol and Drug Abuse Patient Records regulations: The Federal rules restrict any use of the information to criminally investigate or prosecute any alcohol or drug abuse patient.[facility] HospitalIn the event this information is protected by the Federal Confidentiality of Alcohol and Drug Abuse Patient Records regulations: The Federal rules restrict any use of the information to criminally investigate or prosecute any alcohol or drug abuse patient.[facility] HospitalIn the event this information is protected by the Federal Confidentiality of Alcohol and Drug Abuse Patient Records regulations: The Federal rules restrict any use of the information to criminally investigate or prosecute any alcohol or drug abuse patient.[facility] HospitalIn the event this information is protected by the Federal Confidentiality of Alcohol and Drug Abuse Patient Records regulations: The Federal rules restrict any use of the information to criminally investigate or prosecute any alcohol or drug abuse patient.[facility] HospitalIn the event this information is protected by the Federal Confidentiality of Alcohol and Drug Abuse Patient Records regulations: The Federal rules restrict any use of the information to criminally investigate or prosecute any alcohol or drug abuse patient.[facility] HospitalIn the event this information is protected by the Federal Confidentiality of Alcohol and Drug Abuse Patient Records regulations: The Federal rules restrict any use of the information to criminally investigate or prosecute any alcohol or drug abuse patient.[facility] HospitalIn the event this information is protected by the Federal Confidentiality of Alcohol and Drug Abuse Patient Records regulations: The Federal rules restrict any use of the information to criminally investigate or prosecute any alcohol or drug abuse patient.[facility] HospitalIn the event this information is protected by the Federal Confidentiality of Alcohol and Drug Abuse Patient Records regulations: The Federal rules restrict any use of the information to criminally investigate or prosecute any alcohol or drug abuse patient.[facility] HospitalIn the event this information is protected by the Federal Confidentiality of Alcohol and Drug Abuse Patient Records regulations: The Federal rules restrict any use of the information to criminally investigate or prosecute any alcohol or drug abuse patient.[facility] HospitalIn the event this information is protected by the Federal Confidentiality of Alcohol and Drug Abuse Patient Records regulations: The Federal rules restrict any use of the information to criminally investigate or prosecute any alcohol or drug abuse patient.[facility] HospitalIn the event this information is protected by the Federal Confidentiality of Alcohol and Drug Abuse Patient Records regulations: The Federal rules restrict any use of the information to criminally investigate or prosecute any alcohol or drug abuse patient.[facility] HospitalIn the event this information is protected by the Federal Confidentiality of Alcohol and Drug Abuse Patient Records regulations: The Federal rules restrict any use of the information to criminally investigate or prosecute any alcohol or drug abuse patient.[facility] HospitalIn the event this information is protected by the Federal Confidentiality of Alcohol and Drug Abuse Patient Records regulations: The Federal rules restrict any use of the information to criminally investigate or prosecute any alcohol or drug abuse patient.[facility] HospitalIn the event this information is protected by the Federal Confidentiality of Alcohol and Drug Abuse Patient Records regulations: The Federal rules restrict any use of the information to criminally investigate or prosecute any alcohol or drug abuse patient.[facility] HospitalIn the event this information is protected by the Federal Confidentiality of Alcohol and Drug Abuse Patient Records regulations: The Federal rules restrict any use of the information to criminally investigate or prosecute any alcohol or drug abuse patient.[facility] HospitalIn the event this information is protected by the Federal Confidentiality of Alcohol and Drug Abuse Patient Records regulations: The Federal rules restrict any use of the information to criminally investigate or prosecute any alcohol or drug abuse patient.[facility] Reason for Visit (unrecogniz ed section and content) Specialty Diagnoses / Procedures Referred By Yosef t Referred To Contact Nutrition / GENERAL SURGERY Diagnoses Class 3 severe obesity due to excess calories with serious comorbidity and body mass index (BMI) of 45.0 to 49.9 in adult (HCC) SNA Procedures PHYS/QHP TELEPHONE EVALUATION 5-10 MIN VIDEO GROUP (ZOOM) Self Delma Baugh, RD 1 [facility] [address] [place] [id number] Referral ID Status Reason Start Date Expiration Date Visits Re quested Visits Authorized [id number] Closed 2022 11/13/2023 1 1 Reason Comments Appointment Reason Comments New Patient Evaluation Specialty Diagnoses / Procedures [facility] Referred To Contact General Surgery / GENERAL SURGERY Diagnoses Month #4-RED/ILAN/ 6 MONTHS/MMO Procedures VIDEO SPEC NEW Self Serenity Kumar, TRAVELING REPRESENTATIVE.[facility] [address] [place] [address] Referral ID Status Reason Start Date Expiration Date Visits Re quested Visits Authorized [id number] Closed 01/05/2023 04/05/2023 1 1 Reason Comments Established Patient Specialty Diagnoses / Procedures [facility] To Contact Nutrition / GENERAL SURGERY Diagnoses Month #3-RED/ILAN/ 6 MONTHS/MMO Procedures VIDEO SPEC EST Self Hien Marinelli, RD [address] [place] [address] Referral ID Status Reason Start Date Expiration Date Visits Re quested Visits Authorized [id number] Closed 12/08/2022 11/13/2023 1 1 Reason Comments New Patient Sleep Problem SX CLEARANCE Reason Comments Medical Clearance Sleep/Pulm Reason Comments Medical Clearance Psychology Reason Comments Cardiology Follow Up Cardiac clearance Reason Comments Medical Clearance Reason Comments Obesity Reason Comments Surgical Followup Reason Comments Post Op Follow Up Reason Comments Radiology US Specialty Diagnoses / Procedures [facility] To Contact US IMAGING Diagnoses Class 3 severe obesity due to excess calories with serious comorbidity and body mass index (BMI) of 45.0 to 49.9 in adult (HCC) Procedures US ABD RT UPPER QUADRANT US ABDOMINAL REAL TIME W/IMAGE LIMITED Lynne Talavera MD [address] [facility] [address] [place] [place] [address] [place] [address] Referral ID Status Reason Start Date Expiration Date V isits Requested Visits Authorized [id number] Closed Auto-Generate d Referral 11/18/2022 11/13/2023 1 1 Reason Comments Refill Request INFORMATION SOURCE (unrecogn ized section and content) DATE CREATED AUTHOR AUTHOR'S ORGANIZ ATION 11/11/2022 [facility] DATE CREATED AUTHOR AUTHOR'S ORGANIZ ATION 04/27/2023 [facility] DATE CREATED AUTHOR AUTHOR'S ORGANIZ ATION 07/14/2023 [facility] Care Teams (unrecognized sec tion and content) Swimming Professor Relationship Specialty Start Date End Date Jesus Valera MonikaLea [facility] [address] [place] [address] PCP - General Family Medicine 03/30/23 Swimming Professor Relationship Specialty Start Date End Date Jesus Valera MonikaLea [facility] [address] [place] [address] PCP - General Family Medicine 03/30/23 Swimming Professor Relationship Specialty Start Date End Date Jesus Valera [facility] [address] [place] [address] PCP - General Family Medicine 03/30/23 Swimming Professor Relationship Specialty Start Date End Date Jesus Valera MonikaLea [facility] [address] [address] [place] [address] PCP - General Family Medicine 03/30/23 Swimming Professor Relationship Specialty Start Date End Date Jesus Valera [facility] [address] [place] [address] PCP - General Family Medicine 03/30/23 Swimming Professor Relationship Specialty Start Date End Date Jesus ValeraLea [facility] [address] [place] [address] PCP - General Family Medicine 03/30/23 Swimming Professor Relationship Specialty Start Date End Date Victor HugoJesus fraser [address] [facility] [address] [place], [place] [address] PCP - General Family Medicine 03/30/23 Swimming Professor Relationship Specialty Start Date End Date Victor Hugo Jesus JORGE LUIS [address] [facility] [address] [place], [place] [address] PCP - General Family Medicine 03/30/23 FOR RECORDS PERTAINING TO PATIENTS WHO ARE OR HAVE BEEN ENROLLED IN A CHEMICAL DEPENDENCY/SUBSTANCEABUSE PROGRAM, SOME INFORMATION MAY BE OMITTED. This clinical summary was aggregated from multiple sources. Caution should be exercised in using it in the provision of clinical care. This summary normalizes information from multiple sources, and as a consequence, information in this document may materially change the coding, format and clinical context of patient data. In addition, data may be omitted in some cases. CLINICAL DECISIONS SHOULD BE BASED ON THE PRIMARY CLINICAL RECORDS. [facility]. provides no warranty or guarantee of the accuracy or completeness of information in this document.
== END | disposition home or self-care (01) ==
LOC: OPBI 07:58
PROVIDERS: PCP Internal Medicine; Referring Provider Nurse Practitioner Family; Visit Provider Nurse Practitioner Family
DX: Z12.31 Encounter for screening mammogram for malignant neoplasm of breast (principal)
CPT/HCPCS: 77063; 77067

== ENCOUNTER → 2023-11-29 | Outpatient (CLI) | payer OTHER, SELFPAY ==
--- NOTE | 2023-11-29 12:26 | US_ITS ---
STUDY: ULTRASOUND BREAST - LEFT REASON FOR EXAM: Female, 38 years old. Abnormal screening mammogram. TECHNIQUE: Axial and longitudinal images of the LEFT breast were performed with a high resolution ultrasound transducer. # OF IMAGES: 41 COMPARISON: Comparison is made with prior mammogram dated November 28, 2023. FINDINGS: LEFT Breast: The axillary region of the left breast was examined with ultrasound. Several small lymph nodes are seen. The largest measures 4 mm x 4 mm x 2 mm. US/Breast Limited Unilateral IMPRESSION: Findings suggestive of small left axillary lymph nodes. ASSESSMENT CATEGORY: BIRADS Category 2: Benign. A letter regarding these results will be sent to the patient by the facility within 30 days. Electronically Signed: Rudi Varghese MD at 15:37 EST ,
--- OUTSIDE RECORDS SUMMARY | 2023-11-29 12:49 | XMS RPT_ITS | CCD ---
Author Name Unknown Address [address] [place] [address] Organization [facility] Care Team Providers Care District Administrative Assistant Name Role Phone Marli Platt E Unavailable Rachel Cedeño Unavailable Unavailable Instrument Installer, System Unavailable Unavailable Lacy Hatch Unavailable Unavailable [...] TALAVERA Referring Unavailable RADHAMES LOVE Attending Unavailable ESRENITY KUMAR Referring Unavailable LYNNE TALAVERA Referring Unavailable [...] 170.2 cm Serenity Kumar APRN.CNP Work Phone: [facility] 05-04-2023 09:31-0400 Body weight 122.47 kg Serenity Kumar APRN.CNP Work Phone: [facility] 05-04-2023 09:31-0400 Diastolic blood pressure 58 mm[Hg] Serenity Kumar APRN.CNP Work Phone: [facility] 05-04-2023 09:31-0400 Heart rate 80 /min Serenity Kumar APRN.CNP Work Phone: [facility] 05-04-2023 09:31-0400 Systolic blood pressure 105 mm[Hg] Serenity Kumar APRN.CNP Work Phone: [facility] 05-03-2023 08:39-0400 Body height 170.[address] Work Phone: [facility] 05-03-2023 08:39-0400 Body weight 122.[address] Work Phone: [facility] 04-21-2023 10:16-0400 Body height 167.6 cm Pst 2 [facility] 04-21-2023 10:16-0400 Body temperature 98.4 [degF] Pst 2 [facility] 04-21-2023 10:16-0400 Body weight 129.28 kg Pst 2 [facility] 04-21-2023 10:16-0400 Diastolic blood pressure 79 mm[Hg] Pst 2 [facility] 04-21-2023 10:16-0400 Heart rate 79 /min Pst 2 [facility] 04-21-2023 10:16-0400 Respiratory rate 16 /min [facility] 2 [facility] 04-21-2023 10:16-0400 SaO2% (BldA) [Mass fraction] 96 % Pst 2 [facility] 04-21-2023 10:16-0400 Systolic blood pressure 117 mm[Hg] Pst 2 [facility] 04-20-2023 09:31-0400 Body height 167.64 cm [...] Provider Facility Start: 10-01-2023 Refill Mukund Eddie HarperINSTALL TECHNICIAN Work Phone: [facility] Procedures Date Procedure Procedure Detail Performing Clinician Start: 06-07-2023 Follow-up visit Follow Up HIEN HERNANDEZ Start: 04-21-2023 Antibody screen SERENITY KUMAR Plan of Treatment Date Care Activity Detail Author Start: 05-04-2024 BP CONTROLLED (<130/80) BP CONTROLLED (<130/80) [facility] Start: 04-21-2024 BP CONTROLLED (<130/80) BP CONTROLLED (<130/80) [facility] Start: 11-10-2023 BP CONTROLLED (<130/80) BP CONTROLLED (<130/80) [facility] Start: 07-15-2023 Influenza vaccination [facility] Start: 06-03-2023 End: 08-03-2023 25-hydroxyvitamin D3 [Mass/volume] in Serum or Plasma VITAMIN D 25 HYDROXY Lab Routine S/P laparoscopic sleeve gastrectomy Expected: 06/03/2023, Expires: 08/03/2023 [facility] Work Phone: Immunizations Immunization Date Immunization Notes Care Provider Heber lerner 02-09-2007 human papilloma viru s vaccine, quadrivalent Marli Gonzalezfavianjudie [facility] Work Phone: Payers Date Payer Category Payer Private Health Insurance [id number] 2021 Private Health Insurance [id number] 2018 Private Health Insurance [id number] 2011 Medicaid [id number] 2011 Medicaid [employer] [id number] 2011-Present [phone] [address] [place] [address] Medicaid [id number] 1983 Unknown [id number] Unknown Unknown [id number] Social History Date Type Detail Facility Start: 11-10-2022 End: 03-23-2023 Alcohol Use Former smoker [facility] Work Phone: Goals Date Patient Goal Desired Activity /State Personal health goal Personal health goal Clinical Notes 10-13-2022 to 06-07-2023 Serenity Kumar APRN.JORGE LUIS - 05/04/2023 9:[address] - 05/03/2023 9:25 AM EDTTelephone Encounter - Mukund Morgan APRN.CNP - 04/29/2023 1:10 PM EDTPatient Instructions Note Date & Type Note Facility 06-07-2023 Note HNO ID: [id number] Author: Serenity Kumar APRN.JORGE LUIS Service: ? [...] visit. Either the patient or their legal branch customer service representative has been informed of the risks [...] Total weight loss: 11.8 kg (26 lb) [place] weight: 72.4 kg (159 lb 10.2 oz) [...] taking medication, BP well controlled Serenity Kumar, ARCHITECTURAL ADMINISTRATIVE ASSISTANT.INSTALL TECHNICIAN Total time in direct patient contact = 8 min. Greater than 50% of the time was spent in counseling and/or coordination of care. [facility] 06-07-2023 Note HNO ID: [id number] Author: Hien Marinelli RD Service: ? Author Type: Registered Dietitian Type: Progress Notes Filed: 06/07/2023 8:35 AM Note Text: 6 Week Post-Op--Visit conducted via [employer] (audio and visual) d/t COVID 19 SG [...] Breakfast: protein shake (30 g) Lunch: oikos sierra leonean yogurt (15 g) Dinner: chicken enchilada---2 oz [...] recognition technology and may contain grammatical errors. [facility] 05-04-2023 Note HNO ID: [id number] Author: Serenity Kumar APRN.INSTALL TECHNICIAN Service: ? Author Type: Nurse Practitioner Type: [...] 42.44 kg/(m2) Total weight loss: 9 lb [place] weight: 72.4 kg (159 lb 10.2 oz) [...] controlled. She has (more content not included)... [facility] 05-04-2023 History of Present illness Narrative BARIATRIC [...] 42.44 kg/(m^2) Total weight loss: 9 lb [place] weight: 72.4 kg (159 lb 10.2 oz) [...] coordination of care. documented in this encounter [facility] 05-03-2023 Note Education (AGGENS4) MARIIA COUGHLIN ([id number]) 1985 F Date Time Provider Department 05/03/23 [...] for Encounter Date Provider Department Center 05/03/2023 [id number], LINDSEY AGGENS4 [facility] Encounter Status:Closed by CAMILA SAUL on 05/03/23 [facility] 05-03-2023 Note HNO ID: [id number] Author: Camila Saul RD Service: ? Author [...] recognition technology and may contain grammatical errors. [facility] 05-03-2023 History of Present illness Narrative 1 [...] contain grammatical errors. documented in this encounter [facility] 04-29-2023 Miscellaneous Notes I contacted Mariia [...] protein (60-80 grams/day) as prescribed by the marketing director assisted living or nutritional counselor? YES 4. Are you taking the vitamins and minerals as prescribed? YES 5. Do you have the combination welder number to contact your surgeon if you [...] you have an appointment to see a marketing director assisted living or nutritional counselor in the next month?YES [...] Morgan APRN.JORGE LUIS documented in this encounter [facility] 04-28-2023 Miscellaneous Notes I contacted Mariia Coughlin for post-operative follow up s/p Sleeve gastrectomy with Dr. Talavera on 04/26/23 No answer - unable to leave voicemail as her VM box is not set up Serenity Kumar APRN.CNP documented in this encounter [facility] 04-27-2023 Note HNO ID: [id number] Author: Hannah Medrano DO Service: General Surgery [...] questions or concerns Mon-Fri 6a-5p please page [phone]. After 5pm and on Weekends and Holidays, please page [phone] if in ICU or [phone] if on RNF. Subjective SUBJECTIVE: NAEON. Patient [...] 0659 04/27/23 0700 - 04/28/23 0659 Shift [id number] 1148-8450 24 Hour Total 1158-5225 [phone] [id number] 24 Hour Total INTAKE IV 1000 1000 [...] Weekends and Holiday (more content not included)... [facility] 04-26-2023 Note HNO ID: [id number] Author: Hannah Medrano DO Service: General Surgery [...] Medrano DO April 26, 2023 7:38 PM [facility] 04-26-2023 Note HNO ID: [id number] Author: Tamika Carmona APRN.ADMISSIONS CLERK Service: ? Author Type: Nurse Clinical Leader Type: Anesthesia Procedure Notes Filed: 04/26/2023 1:44 PM Note Text: ANESTHESIOLOGY PROCEDURE NOTE Airway General Information Procedure Start Time/Medication Administration: 04/26/2023 1:28 PM Patient location during procedure: OR Timeout Performed Pre-procedure: timeout performed Consent Obtained: Yes Patient identity confirmed: arm band Staffing ADMISSIONS CLERK: Tamika Carmona APRN.ADMISSIONS CLERK Performed by: KATE Indications and Patient Condition [...] April 26, 2023 TIME: 1:43 PM CSN: [id number] [facility] 04-22-2023 Note HNO ID: [id number] Author: Christiana Pelaez APRN.INSTALL TECHNICIAN Service: ? Author Type: Nurse Practitioner Type: Progress Notes Filed: 04/22/2023 2:21 PM Note Text: I faxed a request to the surgeon 's office requesting a copy of the medical clearance be faxed to [phone] or scanned into [employer]. Ashley please follow up regarding medical clearance. Thank you. [facility] 04-21-2023 History and physical note HISTORY AND [...] 37 year old female who presents to [facility] for a scheduled Gastric restrictive [...] fibrillation, CAD, chest pain, DVT/PE and recent PR. GI: See HPI. Negative for: dysphagia, hepatitis, liver disease and ETOH >2 drinks/day. : Negative for: flank pain, hematuria, urinary incontinence and renal failure. DEPARTMENT ASSISTANT: LMP 03/31/23 appox. Negative for abnormal vaginal [...] or any previous visit (from the past 92523 hour(s)). Assessment Patient has the following medical [...] which included preparing to see the patient, vvft-bq-icig patient care, completing clinical documentation, obtaining and/or [...] encounter [facility] 04-20-2023 Instructions Christiana Pelaez APRN.INSTALL TECHNICIAN - 04/20/2023 5:42 PM EDT PATIENT PREOPERATIVE INSTRUCTIONS Your surgeon has scheduled for your procedure at this surgery center: [facility]: [phone], [address] [address] Please enter through the main entrance and proceed to the blue elevators. The [facility] is located to the left of [...] recommendation (Please call surgeon, dietitian or bariatric PRODUCTION SANITIZER with questions) Please stop ALL clear liquids [...] surgery. - YOU MUST HAVE A RESPONSIBLE HAND BRUSH FILLER TAKE YOU HOME. A SCIENTIFIC SOFTWARE DEVELOPER, CAB OR UBER HAND BRUSH FILLER CANNOT BE MADE A RESPONSIBLE HAND BRUSH FILLER. - We recommend that a responsible person stays with you overnight to take care of you. - You cannot stay in a hotel alone after outpatient surgery. You will not be permitted to have your surgery, if you do not have someone to take care of you. Visitation: [facility] in [place] Visitation hours: 7 AM to 9 PM. Masks are required. Pre-Surgery Unit - Patients may have up to 2 visitors at a time. PACU recovery Unit - Patients may have up to 1-2 visitors at a time. [facility] surgery addison Pre-Surgery area - 1 visitor at a [...] of surgery. Orthopedic patients having surgery [facility] listed as outpatient should bring their walker into the building. Orthopedic patients having surgery [facility] [place] [facility] listed as to be admitted should leave their walkers in the car or with a family member. Hibiclens provided per NICOLE Pelaez APRN.CNP 04/20/23 documented in this encounter [facility] 04-20-2023 Note HNO ID: [id number] Author: Serenity Kumar APRN.CNP Service: ? Author [...] visit. Either the patient or their legal branch customer service representative has been informed of the risks [...] acute distress, well-hydrated, well nourished. IMPRESSION: Mariia Cuoghlin is a 37 year old female with [...] of virtual encounter: 60 minutes Serenity Kumar APRN.[facility] 04-20-2023 History of Present illness Narrative Date: [...] visit. Either the patient or their legal branch customer service representative has been informed of the risks [...] Serenity Kumar APRN.CNP documented in this encounter [facility] 04-13-2023 Note HNO ID: [id number] Author: Mukund Morgan APRN.CNP Service: ? Author [...] visit. Either the patient or their legal branch customer service representative has been informed of the risks [...] express severe abdom (more content not included)... [facility] 04-13-2023 Instructions Mukund Morgan APRN.CNP - 04/13/2023 [...] your medicine. Do not take any medicines, qonq-cqz-fscxprm drugs, vitamins, herbs or food supplements without [...] be off your narcotic pain medications. Sexual [place] (sex): You may have sex in approximately [...] and weight loss surgery, contact the following: [employer] [address] [place] [address], [place], [place] www.obesity.org [employer]ariat[employer] (ASMBS) [address] [id number] www.asmbs.org See the attached support group meeting schedule SEEK CARE IMMEDIATELY IF: You have sudden chest pain, trouble breathing, or are coughing up blood. Call 911 or 0 (Governor Assembler) to get to the nearest hospital or [...] or your care. documented in this encounter [facility] 04-13-2023 History of Present illness Narrative [...] visit. Either the patient or their legal branch customer service representative has been informed of the risks [...] was sent to the patient through a [employer] message as well. I spent a total of 20 minutes on the date of the service which included preparing to see the patient, dkxr-cx-ypwd patient care, completing clinical documentation, obtaining and/or [...] 4 - Moderate documented in this encounter [facility] 03-30-2023 Note HNO ID: [id number] Author: Lynne Talavera MD Service: ? Author [...] with diet and exercise programs - [employer] , OTC diet pills, a weight loss program through her chiropractor, weight watchers, and others without vermin exterminator success. The most weight they have lost [...] NSAIDS. She denies any personal history of PR, DM, CVA or other health concerns. Her mother was a diabetic. Social: former smoker - quit 06/2022 - smoked 1/2 ppd x 15 years; seldom etoh use; denies use of marijuana or illicit drugs. 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 PSHx: excision of cyst from right wrist, [...] normal. No re (more content not included)... [facility] 03-30-2023 Note HNO ID: [id number] Author: Katja Rice RN Service: ? Author Type: Registered Nurse Type: Progress Notes Filed: 03/30/2023 10:05 AM Note Text: Patient given written material for VLCD and post op education. Patient advised to contact her PCP for surgical clearance. Will fax the medical clearance letter today. Katja Rice RN March 30, 2023 9:33 AM [facility] 03-30-2023 Note HNO ID: [id number] Author: Serenity Kumar APRN.OJRGE LUIS Service: ? Author Type: Nurse Practitioner [...] require PST orders placed Serenity Kumar APRN.CNP [facility] 03-30-2023 Miscellaneous Notes Medical clearance letter faxed to Jesus Rice RN March 30, 2023 10:58 AM documented in this encounter [facility] 03-23-2023 Note HNO ID: [id number] Author: Serenity Kumar APRN.CNP Service: ? Author Type: Nurse Practitioner Type: Progress Notes Filed: 03/23/2023 2:58 PM Note Text: I agree with the below assessment and plan of care Serenity Kumar APRN.CNP [facility] 03-23-2023 Note HNO ID: [id number] Author: Mukund Morgan APRN.CNP Service: ? Author [...] visit. Either the patient or their legal branch customer service representative has been informed of the risks [...] - Keep a food journal 5-7x/week (consider Gucash or Atticous dianna) and demonstrate meeting protein goal (60-90g protein for females, 70-105g protein for males)- Lean meats, fish, low fat dairy - cottage cheese, Maltese yogurt, light yogurt, cheese, ricotta cheese, nuts, peanut butter, beans/legumes. Eat protein first at all meals. and 64oz of caffeine-free, carbonation-free fluids at least 5 days per week - engage in for (more content not included)... [facility] 03-23-2023 History of Present illness Narrative I agree with the below assessment and plan of care Serenity Kumar, ADRI.INSTALL TECHNICIAN BARIATRIC SURGERY CLINIC FOLLOW UP NOTE DISTANCE [...] visit. Either the patient or their legal branch customer service representative has been informed of the risks [...] (BMI) of 45.0 to 49.9 in adult ([facility]) - ICD9: 278.01, V85.42, ICD10: E66.01, Z68.42 (primary diagnosis) Weight decreasing - Behavioral intervention and - Medical nutrition therapy with dietitian - Nutrition Counseling Practice these: - Eat 3 meals daily--can use approved/recommended protein shake as 1 meal replacement (should be <200 calories, 20-30g protein, <5g added sugar) - Keep a food journal 5-7x/week (consider Gucash or Atticous dianna) and demonstrate meeting protein goal (60-90g protein for females, 70-105g protein for males)- Lean meats, fish, low fat dairy - cottage cheese, Maltese yogurt, light yogurt, cheese, ricotta cheese, nuts, [...] Mukund Morgan APRN.CNP documented in this encounter [facility] 03-23-2023 Note HNO ID: [id number] Author: Hien Marinelli RD Service: ? Author Type: Registered Dietitian Type: Progress Notes Filed: 03/23/2023 1:44 PM Note Text: Mariia Coughlin--Visit conducted via [employer] (audio and visual) d/t COVID 19 Education [...] carbonated beverages 24 hour diet recall Breakfast: Maltese yogurt---20 grams, 2 eggs Lunch: protein shake [...] ERAS, Phase I/II diet, post-op vitamin schedule--via [employer] Plan: follow up post op Total time in direct patient contact = 20 min. Greater than 50% of the time was spent in counseling and/or coordination of care. Hien Marinelli RD This note was generated using voice recognition technology and may contain grammatical errors. [facility] 03-23-2023 Note HNO ID: [id number] Author: Harrison Graves MD Service: ? Author [...] Abs Lymph 1.00 - 4.00 k/uL 1.52 [place]% % 6.3 Abs [place] <0.87 k/uL 0.40 Eosin% % 3.4 Abs [...] 24 Anion Gap (more content not included)... [facility] 03-23-2023 History of Present illness Narrative Mariia Coughlin--Visit conducted via [employer] (audio and visual) d/t COVID 19 Education [...] carbonated beverages 24 hour diet recall Breakfast: Maltese yogurt---20 grams, 2 eggs Lunch: protein shake [...] ERAS, Phase I/II diet, post-op vitamin schedule--via [employer] Plan: follow up post op Total time in direct patient contact = 20 min. Greater than 50% of the time was spent in counseling and/or coordination of care. Hien Marinelli RD This note was generated using voice recognition technology and may contain grammatical errors. documented in this encounter [facility] 03-23-2023 History of Present illness Narrative [...] Abs Lymph 1.00 - 4.00 k/uL 1.52 [place]% % 6.3 Abs [place] <0.87 k/uL 0.40 Eosin% % 3.4 Abs [...] may be inappropriate. documented in this encounter [facility] 03-23-2023 Nurse Note Patient denies any cardiac complaints or symptoms. Carleen Kothari LPN documented in this encounter [facility] 03-15-2023 Miscellaneous Notes ----- Message from [...] questions/concerns. Ciro Kumar documented in this encounter [facility] 03-11-2023 Note HNO ID: [id number] Author: Ciro Che, PhD Service: ? Author Type: Psychologist Type: Progress Notes Filed: 03/15/2023 9:05 AM Note Text: BARIATRIC SURGERY BEHAVIORAL HEALTH EVALUATION DATE OF SERVICE: March 11, 2023 TIME OF SERVICE: [id number] CPT CODE: 05421 Psychiatric diagnostic evaluation BILLING CODE: Ciro Che, PhD CHIEF COMPLAINT: Pre-surgical psychological evaluation DATE OF FIRST SERVICE THIS CYCLE: February 04, 2023 SESSION #: 1 The patient signed the Informed Consent for Psychological Evaluation AND Care Form, and the [facility] insurance benefits, fees for service, emergency procedures, [...] prior to her period. Exercise Uses a [employer] hoop for 30 minutes three days/week Uses elliptical twice/week for 30 minutes Second session update on diet and exercise: - Journaling is still inconsistent but food choices are generally consistent with program recommendations - Now walking for one hour on Tuesdays and during her son's baseball practice- replaces the elliptical BINGE EATING ASSE (more content not included)... [facility] 02-22-2023 Note HNO ID: [id number] Author: Hien Marinelli RD Service: ? Author Type: Registered Dietitian Type: Progress Notes Filed: 02/22/2023 3:11 PM Note Text: Mariia Coughlin--Visit conducted via [employer] (audio and visual) d/t COVID 19 Education [...] recognition technology and may contain grammatical errors. [facility] 02-22-2023 Note HNO ID: [id number] Author: Serenity Kumar APRN.INSTALL TECHNICIAN Service: ? Author Type: Nurse Practitioner Type: [...] visit. Either the patient or their legal branch customer service representative has been informed of the risks [...] - Keep a food journal 5-7x/week (consider Gucash or Atticous dianna) and demonstrate meeting protein goal (60-90g protein for females, 70-105g protein for males)- Lean meats, fish, low fat dairy - cottage cheese, Maltese yogurt, light yogurt, cheese, ricotta cheese, nuts, peanut butter, beans/legumes. Eat pr (more content not included)... [facility] 02-22-2023 History of Present illness Narrative Mariiazenia Brushcharlotte--Visit conducted via [employer] (audio and visual) d/t COVID 19 Education [...] contain grammatical errors. documented in this encounter [facility] 02-22-2023 History of Present illness Narrative [...] visit. Either the patient or their legal branch customer service representative has been informed of the risks [...] (BMI) of 45.0 to 49.9 in adult ([facility]) - ICD9: 278.01, V85.42, ICD10: E66.01, Z68.42 (primary diagnosis) Weight decreasing - Behavioral intervention and - Medical nutrition therapy with dietitian - Nutrition Counseling Practice these: - Eat 3 meals daily--can use approved/recommended protein shake as 1 meal replacement (should be <200 calories, 20-30g protein, <5g added sugar) - Keep a food journal 5-7x/week (consider Gucash or Atticous dianna) and demonstrate meeting protein goal (60-90g protein for females, 70-105g protein for males)- Lean meats, fish, low fat dairy - cottage cheese, Maltese yogurt, light yogurt, cheese, ricotta cheese, nuts, [...] from nutrition, psychology, and cardiology. Follow-up with PRODUCTION SANITIZER next month to review clearance status. If [...] 3 - Low documented in this encounter [facility] 02-17-2023 Note HNO ID: [id number] Author: Radhames Love MD Service: ? Author [...] for internal providers or letter via the [employer] for external providers. CHIEF COMPLAINT: preop pulm eval HPI: This is a 37 year old person who presents with obesity for possible bariatric surgery former smoker - 23 yo - 1/2 ppd - 06/30/2022 No pulmonary disease by hx or sx Works in [employer] service for [employer] Sleep history: Denies any sleep complaint, concern [...] stable - mild weight loss with diet Milnor Sleepiness Scale: Total: 0 REVIEW OF SYSTEMS: [...] Soft, Nontender, Nondis (more content not included)... [facility] 02-17-2023 Miscellaneous Notes Radhames Love MD sent to Serenity Kumar APRN.CNP Pt is clear for surgery, no testing indicated. Serenity Kumar APRN.INSTALL TECHNICIAN documented in this encounter [facility] 02-17-2023 History of Present illness Narrative [...] for internal providers or letter via the [employer] for external providers. CHIEF COMPLAINT: preop pulm eval HPI: This is a 37 year old person who presents with obesity for possible bariatric surgery former smoker - 23 yo - 1/2 ppd - 06/30/2022 No pulmonary disease by hx or sx Works in [employer] for [employer] Sleep history: Denies any sleep complaint, concern [...] stable - mild weight loss with diet Milnor Sleepiness Scale: Total: 0 REVIEW OF SYSTEMS: [...] provider on file. documented in this encounter [facility] 02-04-2023 Note HNO ID: [id number] Author: Ciro Che, PhD Service: ? Author Type: Psychologist Type: Progress Notes Filed: 02/04/2023 10:51 AM Note Text: BARIATRIC SURGERY BEHAVIORAL HEALTH EVALUATION DATE OF SERVICE: February 04, 2023 TIME OF SERVICE: [id number] CPT CODE: 18981 Psychiatric diagnostic evaluation BILLING CODE: Ciro Che, PhD CHIEF COMPLAINT: Pre-surgical psychological evaluation DATE OF FIRST SERVICE THIS CYCLE: February 04, 2023 SESSION #: 1 The patient signed the Informed Consent for Psychological Evaluation AND Care Form, and the [facility] insurance benefits, fees for service, emergency procedures, [...] prior to her period. Exercise Uses a [employer] hoop for 30 minutes three days/week Uses [...] stop eating): No (more content not included)... [facility] 01-24-2023 Note HNO ID: [id number] Author: Hien Marinelli RD Service: ? Author Type: Registered Dietitian Type: Progress Notes Filed: 01/24/2023 10:41 AM Note Text: Mariia Coughlin--Visit conducted via [employer] (audio and visual) d/t COVID 19 Education [...] no formal exercise in last week--previously doing [employer]--30 minutes, 3-4 days/week (breaking a sweat) Written [...] recognition technology and may contain grammatical errors. [facility] 01-24-2023 History of Present illness Narrative Mariia Coughlin--Visit conducted via [employer] (audio and visual) d/t AURELIAID 19 Education [...] no formal exercise in last week--previously doing [employer]--30 minutes, 3-4 days/week (breaking a sweat) Written [...] contain grammatical errors. documented in this encounter [facility] 01-05-2023 Note HNO ID: [id number] Author: Serenity Kumar APRN.INSTALL TECHNICIAN Service: ? Author Type: Nurse Practitioner Type: [...] - Keep a food journal 5-7x/week (consider Gucash or Atticous dianna) and demonstrate meeting protein goal (60-90g protein for females, 70-105g protein for males)- Lean meats, fish, low fat dairy - cottage cheese, Maltese yogurt, light yogurt, cheese, ricotta cheese, nuts, peanut butter, beans/legumes. Eat protein first at all meals. and 64oz of caffeine-free, carbonation-free fluids at least 5 days per week (more content not included)... [facility] 01-05-2023 Instructions Serenity Kumar APRN.INSTALL TECHNICIAN - 01/05/2023 10:16 AM EST Images from [...] per week might help. Your doctor or heat and vent aircraft mechanic can give you advice on healthy weight [...] if you are diabetic or insulin-resistant. References [employer]. Non-Alcoholic Fatty Liver Disease Accessed 07/30/2015. National Institutes of Health. Nonalcoholic Steatohepatitis Accessed 07/30/2015. [employer]. Nonalcoholic Fatty Liver Disease Accessed 07/30/2015. The Merck Manual Home Edition. Fatty Liver Accessed 07/30/2015 Copyright 7978-3564 [facility]. All rights reserved. documented in this encounter [facility] 01-05-2023 History of Present illness Narrative [...] - Keep a food journal 5-7x/week (consider Gucash or Atticous dianna) and demonstrate meeting protein goal (60-90g protein for females, 70-105g protein for males)- Lean meats, fish, low fat dairy - cottage cheese, Maltese yogurt, light yogurt, cheese, ricotta cheese, nuts, [...] Follow-up with RD in 4 weeks and PRODUCTION SANITIZER in 8 weeks. Serenity Kumar APRN.CNP Total [...] 4 - Moderate documented in this encounter [facility] 12-29-2022 Note HNO ID: [id number] Author: Hien Marinelli RD Service: ? Author Type: Registered Dietitian Type: Progress Notes Filed: 12/29/2022 10:36 AM Note Text: Mariia Coughlin--Visit conducted via [employer] (audio and visual) d/t COVID 19 Education [...] recognition technology and may contain grammatical errors. [facility] 12-14-2022 Miscellaneous Notes Spoke with patient and explained I would need to cancel and reschedule her initial psychological appointment with Dr. Meade on 02.04, patient stated she understood. Rescheduled to 02.[address] Ciro Che documented in this encounter [facility] 12-01-2022 Note HNO ID: [id number] Author: RT Fiordaliza(R) Service: Nuclear Medicine Author [...] RT Fiordaliza(R) December 01, 2022 11:22 AM [facility] 2022 Note HNO ID: [id number] Author: Camila Saul RD Service: ? Author Type: Registered Dietitian Type: Progress Notes Filed: 2022 2:27 PM Note Text: [facility] - Bariatric Department New Patient Nutritional [...] and eggs Snacks- Carrots and peppers with sierra leonean dressing Limitations of keeping a food record: [...] of supervised weight loss per insurance: per PRODUCTION SANITIZER notes Written information provided and reviewed: Healthy [...] recognition technology and may contain grammatical errors. [facility] 2022 History of Present illness Narrative [facility] - Bariatric Department New Patient Nutritional Assessment--Shared [...] and eggs Snacks- Carrots and peppers with sierra leonean dressing Limitations of keeping a food record: [...] of supervised weight loss per insurance: per PRODUCTION SANITIZER notes Written information provided and reviewed: Healthy [...] contain grammatical errors. documented in this encounter [facility] 11-18-2022 Note HNO ID: [id number] Author: Katelin Slade RDMS Service: ? Author Type: Explosives Truck Driver Type: Progress Notes Filed: 11/18/2022 10:28 AM [...] RDMS RVT November 18, 2022 10:28 AM [facility] 11-18-2022 History of Present illness Narrative Radiology [...] 2022 10:28 AM documented in this encounter [facility] 11-11-2022 Note HNO ID: [id number] Author: SHAWN Fritz) Service: Radiology Author Type: [...] RT Lam(R) November 11, 2022 10:07 AM [facility] 11-11-2022 History of Present illness Narrative Summary: [...] 2022 10:07 AM documented in this encounter [facility] 11-10-2022 Note HNO ID: [id number] Author: Lynne Talavera MD Service: ? Author [...] with diet and exercise programs - [employer] , OTC diet pills, a weight loss program through her chiropractor, weight watchers, and others without vermin exterminator success. The most weight they have lost [...] NSAIDS. She denies any personal history of PR, DM, CVA or other health concerns. Her [...] normal. No r (more content not included)... [facility] 10-13-2022 Miscellaneous Notes Fax PCP ref call into the program, Spoke to PT- sent [employer] link to setup, once setup will send seminar if PT completes out today then seminar needs complete by 10/27/22 documented in this encounter [facility] Diagnosis Class 3 severe obesity due to excess calories with serious comorbidity and body mass index (BMI) of 45.0 to 49.9 in adult (HCC)- Primary [facility] Diagnosis Class 3 severe obesity due to excess calories with serious comorbidity and body mass index (BMI) of 45.0 to 49.9 in adult (HCC)- Primary Hypertension, unspecified type Hyperlipidemia, unspecified hyperlipidemia type NAFLD (nonalcoholic fatty liver disease) Other chronic nonalcoholic liver disease Calculus of gallbladder without cholecystitis without obstruction Calculus of gallbladder without mention of cholecystitis or obstruction [facility] Diagnosis APPOINTMENT CANCELLED- Primary [facility] Diagnosis Dietary counseling and surveillance- Primary Dietary surveillance and counseling documented in this encounter [facility] note* Diagnosis Eating disorder, unspecified type [F50.9 (ICD-10-CM)]- Primary Morbid obesity (HCC) [E66.01 (ICD-10-CM)] Morbid obesity Psychological factors affecting medical condition [F54 (ICD-10-CM)] Psychic factors associated with diseases classified elsewhere documented in this encounter [facility] note* Diagnosis Class 3 severe obesity due to excess calories without serious comorbidity with body mass index (BMI) of 45.0 to 49.9 in adult (HCC) Preop pulmonary/respiratory exam Pre-operative respiratory examination documented in this encounter [facility] note* Diagnosis Class 3 severe obesity due to excess calories with serious comorbidity and body mass index (BMI) of 45.0 to 49.9 in adult (HCC)- Primary Hypertension, unspecified type NAFLD (nonalcoholic fatty liver disease) Other chronic nonalcoholic liver disease Calculus of gallbladder without cholecystitis without obstruction Calculus of gallbladder without mention of cholecystitis or obstruction [facility] Diagnosis Psychological factors affecting medical condition [F54 (ICD-10-CM)]- Primary Psychic factors associated with diseases classified elsewhere Morbid obesity (HCC) [E66.01 (ICD-10-CM)] Morbid obesity [facility] Diagnosis Pre-operative cardiovascular examination- Primary Primary hypertension Unspecified essential hypertension Mixed hyperlipidemia Morbid obesity with BMI of 45.0-49.9, adult (HCC) Morbid obesity [facility] Diagnosis Dietary counseling and surveillance- Primary Dietary surveillance and counseling [facility] Diagnosis Class 3 severe obesity due to excess calories with serious comorbidity and body mass index (BMI) of 45.0 to 49.9 in adult (HCC)- Primary Hypertension, unspecified type NAFLD (nonalcoholic fatty liver disease) Other chronic nonalcoholic liver disease [facility] Diagnosis Morbid obesity (HCC)- Primary Morbid obesity Morbid obesity (HCC) Morbid obesity [facility] Diagnosis Class 3 severe obesity with serious comorbidity and body mass index (BMI) of 45.0 to 49.9 in adult, unspecified obesity type (HCC)- Primary Morbid obesity (HCC) Morbid obesity [facility] Diagnosis Class 3 severe obesity with serious comorbidity and body mass index (BMI) of 45.0 to 49.9 in adult, unspecified obesity type (HCC)- Primary Morbid obesity (HCC) Morbid obesity [facility] Diagnosis Morbid obesity (HCC) [E66.01 (ICD-10-CM)]- Primary Morbid obesity Pre-op testing Preoperative examination, unspecified Primary hypertension Unspecified essential hypertension Mixed hyperlipidemia Morbid obesity (HCC) Morbid obesity [facility] Diagnosis Dietary counseling and surveillance- Primary Dietary surveillance and counseling [facility] Diagnosis S/P laparoscopic sleeve gastrectomy- Primary Bariatric surgery status Hypertension, unspecified type [facility]* Diagnosis Class 3 severe obesity due to excess calories with serious comorbidity and body mass index (BMI) of 45.0 to 49.9 in adult (HCC) documented in this encounter [facility] note* Diagnosis Class 3 severe obesity with serious comorbidity and body mass index (BMI) of 45.0 to 49.9 in adult, unspecified obesity type (HCC) documented in this encounter [facility]* Name Dates Details How to Access Health Informa tion Online using Patient Portal and [employer] Indication:Nonsmoker Start:26-Mar-2021 Instruction Type:Patient Education Patient Instructions Indication:Nonsmoker Start:26-Mar-2021 Instruction Type:Provider Instructions for Treatment Patient Instructions Indication:Encounter for screening for other suspected endocrine disorder Start:16-Jan-2021 Instruction Type:Provider Instructions for Treatment How to Access Health Informa tion Online using Patient Portal and [employer] Apps Indication:Nonsmoker Start:16-Jan-2021 Instruction Type:Patient Education How [...] Internal Medicine; [facility] Work Phone: [employer]* Name Dates Details How to Access Health Informa tion Online using Patient Portal and [employer] Apps Indication:Nonsmoker Start:26-Mar-2021 Instruction Type:Patient Education Patient Instructions Indication:Nonsmoker Start:26-Mar-2021 Instruction Type:Provider Instructions for Treatment Patient Instructions Indication:Encounter for screening for other suspected endocrine disorder Start:16-Jan-2021 Instruction Type:Provider Instructions for Treatment How to Access Health Informa tion Online using Patient Portal and [employer] Indication:Nonsmoker Start:16-Jan-2021 Instruction Type:Patient Education How [...] tion Online using Patient Portal and [employer] Apps Indication:Sebaceous cyst Start:03-Apr-2021 Instruction Type:Patient Education How to Access Health Informa tion Online using Patient Portal and [employer] Apps Indication:Nonsmoker Start:26-Mar-2021 Instruction Type:Patient Education Patient Instructions Indication:Nonsmoker Start:26-Mar-2021 Instruction Type:Provider Instructions for Treatment Patient Instructions Indication:Encounter for screening for other suspected endocrine disorder Start:16-Jan-2021 Instruction Type:Provider Instructions for Treatment How to Access Health Informa tion Online using Patient Portal and [employer] Apps Indication:Nonsmoker Start:16-Jan-2021 Instruction Type:Patient Education How [...] tion Online using Patient Portal and [employer] Apps Indication:Sebaceous cyst Start:03-Apr-2021 Instruction Type:Patient Education How to Access Health Informa tion Online using Patient Portal and [employer] Apps Indication:Nonsmoker Start:26-Mar-2021 Instruction Type:Patient Education Patient Instructions Indication:Nonsmoker Start:26-Mar-2021 Instruction Type:Provider Instructions for Treatment Patient Instructions Indication:Encounter for screening for other suspected endocrine disorder Start:16-Jan-2021 Instruction Type:Provider Instructions for Treatment How to Access Health Informa tion Online using Patient Portal and [employer] Apps Indication:Nonsmoker Start:16-Jan-2021 Instruction Type:Patient Education How [...] tion Online using Patient Portal and [employer] Apps Indication:Encounter for general adult medical examination w/o abnormal findings (Renamed from Encounter for general adult medical examination without abnormal findings) Start:15-Sep-2022 Instruction Type:Patient Education Patient Instructions Indication:Sebaceous cyst Start:03-Apr-2021 Instruction Type:Provider Instructions for Treatment How to Access Health Informa tion Online using Patient Portal and [employer] Apps Indication:Sebaceous cyst Start:03-Apr-2021 Instruction Type:Patient Education How to Access Health Informa tion Online using Patient Portal and [employer] Apps Indication:Nonsmoker Start:26-Mar-2021 Instruction Type:Patient Education Patient Instructions Indication:Nonsmoker Start:26-Mar-2021 Instruction Type:Provider Instructions for Treatment Patient Instructions Indication:Encounter for screening for other suspected endocrine disorder Start:16-Jan-2021 Instruction Type:Provider Instructions for Treatment How to Access Health Informa tion Online using Patient Portal and [employer] Apps Indication:Nonsmoker Start:16-Jan-2021 Instruction Type:Patient Education How [...] tion Online using Patient Portal and [employer] Apps Indication:Former smoker Start:15-Sep-2022 Instruction Type:Patient Education Patient Instructions Indication:Sebaceous cyst Start:03-Apr-2021 Instruction Type:Provider Instructions for Treatment How to Access Health Informa tion Online using Patient Portal and [employer] Apps Indication:Sebaceous cyst Start:03-Apr-2021 Instruction Type:Patient Education How to Access Health Informa tion Online using Patient Portal and [employer] Apps Indication:Nonsmoker Start:26-Mar-2021 Instruction Type:Patient Education Patient Instructions Indication:Nonsmoker Start:26-Mar-2021 Instruction Type:Provider Instructions for Treatment Patient Instructions Indication:Encounter for screening for other suspected endocrine disorder Start:16-Jan-2021 Instruction Type:Provider Instructions for Treatment How to Access Health Informa tion Online using Patient Portal and [employer] Apps Indication:Nonsmoker Start:16-Jan-2021 Instruction Type:Patient Education How [...] tion Online using Patient Portal and [employer] Apps Indication:Former smoker Start:15-Sep-2022 Instruction Type:Patient Education Patient Instructions Indication:Sebaceous cyst Start:03-Apr-2021 Instruction Type:Provider Instructions for Treatment How to Access Health Informa tion Online using Patient Portal and [email or web address] Apps Indication:Sebaceous cyst Start:03-Apr-2021 Instruction Type:Patient Education How to Access Health Informa tion Online using Patient Portal and [employer] Indication:Nonsmoker Start:26-Mar-2021 Instruction Type:Patient Education Patient Instructions Indication:Nonsmoker Start:26-Mar-2021 Instruction Type:Provider Instructions for Treatment Patient Instructions Indication:Encounter for screening for other suspected endocrine disorder Start:16-Jan-2021 Instruction Type:Provider Instructions for Treatment How to Access Health Informa tion Online using Patient Portal and [employer] Indication:Nonsmoker Start:16-Jan-2021 Instruction Type:Patient Education How [...] tion Online using Patient Portal and [employer] Apps Indication:Former smoker Start:29-Sep-2022 Instruction Type:Patient Education Patient Instructions Indication:Former smoker Start:29-Sep-2022 Instruction Type:Provider Instructions for Treatment Patient Instructions Indication:Encounter for general adult medical examination w/o abnormal findings (Renamed from Encounter for general adult medical examination without abnormal findings) Start:15-Sep-2022 Instruction Type:Provider Instructions for Treatment How to Access Health Informa tion Online using Patient Portal and [employer] Indication:Former smoker Start:15-Sep-2022 Instruction Type:Patient Education Patient Instructions Indication:Sebaceous cyst Start:03-Apr-2021 Instruction Type:Provider Instructions for Treatment How to Access Health Informa tion Online using Patient Portal and [employer] Apps Indication:Sebaceous cyst Start:03-Apr-2021 Instruction Type:Patient Education How to Access Health Informa tion Online using Patient Portal and [email or web address] Apps Indication:Nonsmoker Start:26-Mar-2021 Instruction Type:Patient Education Patient Instructions Indication:Nonsmoker Start:26-Mar-2021 Instruction Type:Provider Instructions for Treatment Patient Instructions Indication:Encounter for screening for other suspected endocrine disorder Start:16-Jan-2021 Instruction Type:Provider Instructions for Treatment How to Access Health Informa tion Online using Patient Portal and [employer] Apps Indication:Nonsmoker Start:16-Jan-2021 Instruction Type:Patient Education How [...] tion Online using Patient Portal and [employer] Apps Indication:BMI 45.0-49.9, adult Start:27-Oct-2022 Instruction Type:Patient Education Patient Instructions Indication:BMI 45.0-49.9, adult Start:27-Oct-2022 Instruction Type:Provider Instructions for Treatment How to Access Health Informa tion Online using Patient Portal and [email or web address] Apps Indication:Former smoker Start:29-Sep-2022 Instruction Type:Patient Education Patient Instructions Indication:Former smoker Start:29-Sep-2022 Instruction Type:Provider Instructions for Treatment Patient Instructions Indication:Encounter for general adult medical examination w/o abnormal findings (Renamed from Encounter for general adult medical examination without abnormal findings) Start:15-Sep-2022 Instruction Type:Provider Instructions for Treatment How to Access Health Informa tion Online using Patient Portal and [email or web address] Apps Indication:Former smoker Start:15-Sep-2022 Instruction Type:Patient Education Patient Instructions Indication:Sebaceous cyst Start:03-Apr-2021 Instruction Type:Provider Instructions for Treatment How to Access Health Informa tion Online using Patient Portal and [email or web address] Apps Indication:Sebaceous cyst Start:03-Apr-2021 Instruction Type:Patient Education How to Access Health Informa tion Online using Patient Portal and [employer] Apps Indication:Nonsmoker Start:26-Mar-2021 Instruction Type:Patient Education Patient Instructions Indication:Nonsmoker Start:26-Mar-2021 Instruction Type:Provider Instructions for Treatment Patient Instructions Indication:Encounter for screening for other suspected endocrine disorder Start:16-Jan-2021 Instruction Type:Provider Instructions for Treatment How to Access Health Informa tion Online using Patient Portal and [employer] Apps Indication:Nonsmoker Start:16-Jan-2021 Instruction Type:Patient Education How [...] tion Online using Patient Portal and [employer] Apps Indication:BMI 45.0-49.9, adult Start:27-Oct-2022 Instruction Type:Patient Education Patient Instructions Indication:BMI 45.0-49.9, adult Start:27-Oct-2022 Instruction Type:Provider Instructions for Treatment How to Access Health Informa tion Online using Patient Portal and [employer] Apps Indication:Former smoker Start:29-Sep-2022 Instruction Type:Patient Education Patient Instructions Indication:Former smoker Start:29-Sep-2022 Instruction Type:Provider Instructions for Treatment Patient Instructions Indication:Encounter for general adult medical examination w/o abnormal findings (Renamed from Encounter for general adult medical examination without abnormal findings) Start:15-Sep-2022 Instruction Type:Provider Instructions for Treatment How to Access Health Informa tion Online using Patient Portal and [employer] Apps Indication:Former smoker Start:15-Sep-2022 Instruction Type:Patient Education Patient Instructions Indication:Sebaceous cyst Start:03-Apr-2021 Instruction Type:Provider Instructions for Treatment How to Access Health Informa tion Online using Patient Portal and [employer] Apps Indication:Sebaceous cyst Start:03-Apr-2021 Instruction Type:Patient Education How to Access Health Informa tion Online using Patient Portal and [employer] Apps Indication:Nonsmoker Start:26-Mar-2021 Instruction Type:Patient Education Patient Instructions Indication:Nonsmoker Start:26-Mar-2021 Instruction Type:Provider Instructions for Treatment Patient Instructions Indication:Encounter for screening for other suspected endocrine disorder Start:16-Jan-2021 Instruction Type:Provider Instructions for Treatment How to Access Health Informa tion Online using Patient Portal and [employer] Apps Indication:Nonsmoker Start:16-Jan-2021 Instruction Type:Patient Education How [...] tion Online using Patient Portal and [employer] Apps Indication:Preop examination (Renamed from Encounter for pre-operative examination) Start:20-Apr-2023 Instruction Type:Patient Education How to Access Health Informa tion Online using Patient Portal and [employer] Apps Indication:BMI 45.0-49.9, adult Start:27-Oct-2022 Instruction Type:Patient Education Patient Instructions Indication:BMI 45.0-49.9, adult Start:27-Oct-2022 Instruction Type:Provider Instructions for Treatment How to Access Health Informa tion Online using Patient Portal and [employer] Apps Indication:Former smoker Start:29-Sep-2022 Instruction Type:Patient Education Patient Instructions Indication:Former smoker Start:29-Sep-2022 Instruction Type:Provider Instructions for Treatment Patient Instructions Indication:Encounter for general adult medical examination w/o abnormal findings (Renamed from Encounter for general adult medical examination without abnormal findings) Start:15-Sep-2022 Instruction Type:Provider Instructions for Treatment How to Access Health Informa tion Online using Patient Portal and 3rd [employer] Apps Indication:Former smoker Start:15-Sep-2022 Instruction Type:Patient Education Patient Instructions Indication:Sebaceous cyst Start:03-Apr-2021 Instruction Type:Provider Instructions for Treatment How to Access Health Informa tion Online using Patient Portal and 3rd [employer] Apps Indication:Sebaceous cyst Start:03-Apr-2021 Instruction Type:Patient Education How to Access Health Informa tion Online using Patient Portal and [employer]rd [employer] Apps Indication:Nonsmoker Start:26-Mar-2021 Instruction Type:Patient Education Patient Instructions Indication:Nonsmoker Start:26-Mar-2021 Instruction Type:Provider Instructions for Treatment Patient Instructions Indication:Encounter for screening for other suspected endocrine disorder Start:16-Jan-2021 Instruction Type:Provider Instructions for Treatment How to Access Health Informa tion Online using Patient Portal and [employer]rd [employer] Apps Indication:Nonsmoker Start:16-Jan-2021 Instruction Type:Patient Education How [...] tion Online using Patient Portal and 3rd [employer] Apps Indication:Preop examination (Renamed from Encounter for pre-operative examination) Start:20-Apr-2023 Instruction Type:Patient Education How to Access Health Informa tion Online using Patient Portal and 3rd [employer] Apps Indication:BMI 45.0-49.9, adult Start:27-Oct-2022 Instruction Type:Patient Education Patient Instructions Indication:BMI 45.0-49.9, adult Start:27-Oct-2022 Instruction Type:Provider Instructions for Treatment How to Access Health Informa tion Online using Patient Portal and 3rd [employer] Apps Indication:Former smoker Start:29-Sep-2022 Instruction Type:Patient Education Patient Instructions Indication:Former smoker Start:29-Sep-2022 Instruction Type:Provider Instructions for Treatment Patient Instructions Indication:Encounter for general adult medical examination w/o abnormal findings (Renamed from Encounter for general adult medical examination without abnormal findings) Start:15-Sep-2022 Instruction Type:Provider Instructions for Treatment How to Access Health Informa tion Online using Patient Portal and 3rd [employer] Apps Indication:Former smoker Start:15-Sep-2022 Instruction Type:Patient Education Patient Instructions Indication:Sebaceous cyst Start:03-Apr-2021 Instruction Type:Provider Instructions for Treatment How to Access Health Informa tion Online using Patient Portal and 3rd [employer] Apps Indication:Sebaceous cyst Start:03-Apr-2021 Instruction Type:Patient Education How to Access Health Informa tion Online using Patient Portal and 3rd [employer] Apps Indication:Nonsmoker Start:26-Mar-2021 Instruction Type:Patient Education Patient Instructions Indication:Nonsmoker Start:26-Mar-2021 Instruction Type:Provider Instructions for Treatment Patient Instructions Indication:Encounter for screening for other suspected endocrine disorder Start:16-Jan-2021 Instruction Type:Provider Instructions for Treatment How to Access Health Informa tion Online using Patient Portal and 3rd [employer] Apps Indication:Nonsmoker Start:16-Jan-2021 Instruction Type:Patient Education How [...] DOUBLE CONTRAST STUDY Lynne Talavera MD [address] [employer] [address] [place] [id number] Xr Imaging Referral ID Status Reason Start Date Expiration Date V isits Requested Visits Authorized [id number] Closed Auto-Generate d Referral 11/10/2022 12/10/2023 1 1 [facility] for visit Narrative* Diagnostic Procedure Only (Routine) [...] DOUBLE CONTRAST STUDY Lynne Talavera MD 1 [employer] [address] [place] [address] Xr Imaging Referral ID Status Reason Start Date Expiration Date V isits Requested Visits Authorized [id number] Closed Auto-Generate d Referral 11/10/2022 12/10/2023 1 1 [facility] Family History Unknown Family Member Name [...] tion Online using Patient Portal and 3rd [employer] Apps Indication:Nonsmoker Start:16-Jan-2021 Instruction Type:Patient Education How [...] Informa tion Online using Patient Portal and [employer] Apps Indication:Nonsmoker Start:16-Jan-2021 Instruction Type:Patient Education How [...] tion Online using Patient Portal and 3rd [employer] Apps Indication:Nonsmoker Start:16-Jan-2021 Instruction Type:Patient Education How [...] (BMI) of 45.0 to 49.9 in adult ([facility]) Hypertension, unspecified type Hyperlipidemia, unspecified hyperlipidemia type Procedures CONSULT TO CARDIOLOGY OFFICE/OUTPATIENT NEW HIGH MDM 60-74 MINUTES Jailyn Tyson APRN.CNP 1 [facility] [place] [address] [place] [phone] Referral ID Status Reason Start Date Expiration Date Visits Requested Visits Authorized [id number] Authorized PCP Requested Referral 01/05/2023 04/05/2023 1 1 Specialty Diagnoses / Procedures Referred By Contac t Referred To Contact Diagnoses Morbid obesity (HCC) Procedures CONSULT TO PRE-SURGICAL TESTING (AG) Lynne Talavera MD [address] [address] Referral ID Status Reason Start Date Expiration Date Visits Requested Visits Authorized [id number] Ref Not Required PCP Requested Referral 04/12/2023 07/11/2023 1 1 Specialty Diagnoses / Procedures Referred By Contac t Referred To Contact US IMAGING Diagnoses Class 3 severe obesity due to excess calories with serious comorbidity and body mass index (BMI) of 45.0 to 49.9 in adult (HCC) Procedures US ABD RT UPPER QUADRANT US ABDOMINAL REAL TIME W/IMAGE LIMITED Lynne Talavera MD [address] [address] [place] [address] Referral ID Status Reason Start Date Expiration Date V isits Requested Visits Authorized [id number] Closed Auto-Generate d Referral 11/18/2022 11/13/2023 1 1 Additional Source Comments Source Comments (unrecognize d section and content) In the event this informatio n is protected by the Federal Confidentiality of Alcohol and Drug Abuse Patient Records regulations: The Federal rules restrict any use of the information to criminally investigate or prosecute any alcohol or drug abuse patient.[facility] the event this information is protected by the Federal Confidentiality of Alcohol and Drug Abuse Patient Records regulations: The Federal rules restrict any use of the information to criminally investigate or prosecute any alcohol or drug abuse patient.[facility] the event this information is protected by the Federal Confidentiality of Alcohol and Drug Abuse Patient Records regulations: The Federal rules restrict any use of the information to criminally investigate or prosecute any alcohol or drug abuse patient.[facility] the event this information is protected by the Federal Confidentiality of Alcohol and Drug Abuse Patient Records regulations: The Federal rules restrict any use of the information to criminally investigate or prosecute any alcohol or drug abuse patient.[facility] the event this information is protected by the Federal Confidentiality of Alcohol and Drug Abuse Patient Records regulations: The Federal rules restrict any use of the information to criminally investigate or prosecute any alcohol or drug abuse patient.[facility] the event this information is protected by the Federal Confidentiality of Alcohol and Drug Abuse Patient Records regulations: The Federal rules restrict any use of the information to criminally investigate or prosecute any alcohol or drug abuse patient.[facility] the event this information is protected by the Federal Confidentiality of Alcohol and Drug Abuse Patient Records regulations: The Federal rules restrict any use of the information to criminally investigate or prosecute any alcohol or drug abuse patient.[facility] the event this information is protected by the Federal Confidentiality of Alcohol and Drug Abuse Patient Records regulations: The Federal rules restrict any use of the information to criminally investigate or prosecute any alcohol or drug abuse patient.[facility] the event this information is protected by the Federal Confidentiality of Alcohol and Drug Abuse Patient Records regulations: The Federal rules restrict any use of the information to criminally investigate or prosecute any alcohol or drug abuse patient.[facility] the event this information is protected by the Federal Confidentiality of Alcohol and Drug Abuse Patient Records regulations: The Federal rules restrict any use of the information to criminally investigate or prosecute any alcohol or drug abuse patient.[facility] the event this information is protected by the Federal Confidentiality of Alcohol and Drug Abuse Patient Records regulations: The Federal rules restrict any use of the information to criminally investigate or prosecute any alcohol or drug abuse patient.[facility] the event this information is protected by the Federal Confidentiality of Alcohol and Drug Abuse Patient Records regulations: The Federal rules restrict any use of the information to criminally investigate or prosecute any alcohol or drug abuse patient.[facility] the event this information is protected by the Federal Confidentiality of Alcohol and Drug Abuse Patient Records regulations: The Federal rules restrict any use of the information to criminally investigate or prosecute any alcohol or drug abuse patient.[facility] the event this information is protected by the Federal Confidentiality of Alcohol and Drug Abuse Patient Records regulations: The Federal rules restrict any use of the information to criminally investigate or prosecute any alcohol or drug abuse patient.[facility] the event this information is protected by the Federal Confidentiality of Alcohol and Drug Abuse Patient Records regulations: The Federal rules restrict any use of the information to criminally investigate or prosecute any alcohol or drug abuse patient.[facility] Hospital[facility] the event this information is protected by the Federal Confidentiality of Alcohol and Drug Abuse Patient Records regulations: The Federal rules restrict any use of the information to criminally investigate or prosecute any alcohol or drug abuse patient.[facility] HospitalIn the event this information is protected by the Federal Confidentiality of Alcohol and Drug Abuse Patient Records regulations: The Federal rules restrict any use of the information to criminally investigate or prosecute any alcohol or drug abuse patient.[facility] Hospital[facility] the event this information is protected by the Federal Confidentiality of Alcohol and Drug Abuse Patient Records regulations: The Federal rules restrict any use of the information to criminally investigate or prosecute any alcohol or drug abuse patient.[facility] the event this information is protected by the Federal Confidentiality of Alcohol and Drug Abuse Patient Records regulations: The Federal rules restrict any use of the information to criminally investigate or prosecute any alcohol or drug abuse patient.[facility] HospitalIn the event this information is protected by the Federal Confidentiality of Alcohol and Drug Abuse Patient Records regulations: The Federal rules restrict any use of the information to criminally investigate or prosecute any alcohol or drug abuse patient.[facility] HospitalIn the event this information is protected by the Federal Confidentiality of Alcohol and Drug Abuse Patient Records regulations: The Federal rules restrict any use of the information to criminally investigate or prosecute any alcohol or drug abuse patient.[facility] HospitalIn the event this information is protected by the Federal Confidentiality of Alcohol and Drug Abuse Patient Records regulations: The Federal rules restrict any use of the information to criminally investigate or prosecute any alcohol or drug abuse patient.[facility] HospitalIn the event this information is protected by the Federal Confidentiality of Alcohol and Drug Abuse Patient Records regulations: The Federal rules restrict any use of the information to criminally investigate or prosecute any alcohol or drug abuse patient.[facility] HospitalIn the event this information is protected by the Federal Confidentiality of Alcohol and Drug Abuse Patient Records regulations: The Federal rules restrict any use of the information to criminally investigate or prosecute any alcohol or drug abuse patient.[facility] HospitalIn the event this information is protected by the Federal Confidentiality of Alcohol and Drug Abuse Patient Records regulations: The Federal rules restrict any use of the information to criminally investigate or prosecute any alcohol or drug abuse patient.[facility] HospitalIn the event this information is protected by the Federal Confidentiality of Alcohol and Drug Abuse Patient Records regulations: The Federal rules restrict any use of the information to criminally investigate or prosecute any alcohol or drug abuse patient.[facility] HospitalIn the event this information is protected by the Federal Confidentiality of Alcohol and Drug Abuse Patient Records regulations: The Federal rules restrict any use of the information to criminally investigate or prosecute any alcohol or drug abuse patient.[facility] HospitalIn the event this information is protected by the Federal Confidentiality of Alcohol and Drug Abuse Patient Records regulations: The Federal rules restrict any use of the information to criminally investigate or prosecute any alcohol or drug abuse patient.[facility] Reason for Visit (unrecogniz ed section and content) Specialty Diagnoses / Procedures Referred By Yosef t Referred To Contact Nutrition / GENERAL SURGERY Diagnoses Class 3 severe obesity due to excess calories with serious comorbidity and body mass index (BMI) of 45.0 to 49.9 in adult (HCC) SNA Procedures PHYS/QHP TELEPHONE EVALUATION 5-10 MIN VIDEO GROUP (ZOOM) Self Delma Baugh, RD 1 [facility] [place] [address] [place] [address] Referral ID Status Reason Start Date Expiration Date Visits Re quested Visits Authorized [id number] Closed 2022 11/13/2023 1 1 Reason Comments Appointment Reason Comments New Patient Evaluation Specialty Diagnoses / Procedures [facility] Referred To Contact General Surgery / GENERAL SURGERY Diagnoses Month #4-RED/ILAN/ 6 MONTHS/MMO Procedures VIDEO SPEC NEW Self Serenity Kumar, ARCHITECTURAL ADMINISTRATIVE ASSISTANT.INSTALL TECHNICIAN [address] [place] [address] Referral ID Status Reason Start Date Expiration Date Visits Re quested Visits Authorized [id number] Closed 01/05/2023 04/05/2023 1 1 Reason Comments Established Patient Specialty Diagnoses / Procedures [facility] Referred To Contact Nutrition / GENERAL SURGERY Diagnoses Month #3-RED/ILAN/ 6 MONTHS/MMO Procedures VIDEO SPEC EST Self Hien Marinelli, RD [address] [place] [address] Referral ID Status Reason Start Date Expiration Date Visits Re quested Visits Authorized [id number] Closed 12/08/2022 11/13/2023 1 1 Reason Comments New Patient Sleep Problem SX CLEARANCE Reason Comments Medical Clearance Sleep/Pulm Reason Comments Medical Clearance Psychology Reason Comments Cardiology Follow Up Cardiac clearance Reason Comments Medical Clearance Reason Comments Obesity Reason Comments Surgical Followup Reason Comments Post Op Follow Up Reason Comments Radiology US Specialty Diagnoses / Procedures [facility] To Contact US IMAGING Diagnoses Class 3 severe obesity due to excess calories with serious comorbidity and body mass index (BMI) of 45.0 to 49.9 in adult (HCC) Procedures US ABD RT UPPER QUADRANT US ABDOMINAL REAL TIME W/IMAGE LIMITED Lynne Talavera MD [address] [facility] [address] [place] [address] [place] [address] Referral ID Status Reason Start Date Expiration Date V isits Requested Visits Authorized [id number] Closed Auto-Generate d Referral 11/18/2022 11/13/2023 1 1 Reason Comments Refill Request INFORMATION SOURCE (unrecogn ized section and content) DATE CREATED AUTHOR AUTHOR'S ORGANIZ ATION 11/11/2022 [facility] nter DATE CREATED AUTHOR AUTHOR'S ORGANIZ ATION 04/27/2023 [facility] DATE CREATED AUTHOR AUTHOR'S ORGANIZ ATION 07/14/2023 [facility] Care Teams (unrecognized sec tion and content) District Administrative Assistant Relationship Specialty Start Date End Date Jesus Valera MonikaLea [facility] [address] [place] [address] PCP - General Family Medicine 03/30/23 District Administrative Assistant Relationship Specialty Start Date End Date Jesus Valera MonikaLea [facility] [address] [place] [address] PCP - General Family Medicine 03/30/23 District Administrative Assistant Relationship Specialty Start Date End Date Jesus Valera Ben [facility] [address] [place] [address] PCP - General Family Medicine 03/30/23 District Administrative Assistant Relationship Specialty Start Date End Date Jesus Valera MonikaLea [facility] [address] [place] [address] PCP - General Family Medicine 03/30/23 District Administrative Assistant Relationship Specialty Start Date End Date Jesus Valera [facility] [address] [place] [address] PCP - General Family Medicine 03/30/23 District Administrative Assistant Relationship Specialty Start Date End Date Jesus ValeraLea [facility] [address] [place] [address] PCP - General Family Medicine 03/30/23 District Administrative Assistant Relationship Specialty Start Date End Date Victor HugoJesus fraser [address] [facility] [address] [place], [place] [address] PCP - General Family Medicine 03/30/23 District Administrative Assistant Relationship Specialty Start Date End Date Victor Hugo Jesus JORGE LUIS [address] [facility] [address] [place], [place] [id number] PCP - General Family Medicine 03/30/23 FOR [...] BE BASED ON THE PRIMARY CLINICAL RECORDS. [facility]. provides no warranty or guarantee of the accuracy or completeness of information in this document.
== END | disposition home or self-care (01) ==
PROVIDERS: PCP Internal Medicine; Referring Provider Nurse Practitioner Family; Visit Provider Nurse Practitioner Family
DX: N63.20 Unspecified lump in the left breast, unspecified quadrant (principal)
CPT/HCPCS: 76642